=== PATIENT | male | born 1940 | race Caucasian/White ===

== ENCOUNTER 2017-09-13 09:00 | Observation (INO) | payer BC, OTHER ==
[2017-09-13 09:19] LABS: PLATELET COUNT 207 10^3/uL (150-400)
--- NOTE | 2017-09-13 09:21 | PDCONSULT ---
Tassel Maker Note: [facility] Note Demographics Consult Type: Acute Stroke First Name: Delta Last Name: Jason Date of : 1940 Age: 77 Gender: Male Time of initial page (): 09/13/2017 09:17 Time of return call (): 09/13/2017 09:17 Time Ready to Initiate Telemed Consult (): 09/13/2017 09:17 HPI Additional History (Free Text): was at home with sinus infection. He then became confused and perseverative. He also reports headache, which is better now. There is no focal weakness in the arms or legs. [facility]-- Past Medical History: Hypertension Exam Vitals: vital signs reviewed SBP: 173 DBP: 108 NIHSS Time (): 09/13/2017 09:17 LOC 1a: 0 = Alert; keenly responsive LOC 1b: 0 = Answers both questions correctly LOC Commands: 0 = Performs both tasks correctly Best Gaze: 0 = Normal Visual: 0 = No visual loss Facial Palsy: 0 = Normal symmetrical movements Motor Arm L: 0 = No drift; limb holds 90 (or 45) degrees for full 10 seconds Motor Arm R: 0 = No drift; limb holds 90 (or 45) degrees for full 10 seconds Motor Leg L: 0 = No drift; leg holds 30-degree position for full 5 seconds Motor Leg R: 0 = No drift; leg holds 30-degree position for full 5 seconds Limb Ataxia: 0 = Absent Sensory: 0 = Normal; no sensory loss Best Language: 0 = No aphasia; normal Dysarthria: 0 = Normal Extinction + Inattention: 0 = No abnormality NIHSS: [address]: no bleed Assessment Assessment: Altered Mental Status, possibly due to HTN Plan Lytic/Intervention: NOT IV or IA candidate tPA Exclusion (< 3hr window): Mild or improving symptoms Target Blood Pressure: SBP < 160, if CTA head and neck is negative Labs: Ammonia, Comprehensive metabolic panel, LFT, Lipid Panel, TSH, UA, UDS Imaging: CTA Head and Neck, MRI brain without Other: LDL goal less than 70, telemetry monitoring, I have discussed my recommendations with the referring provider Order Urgency: Routine on admission Disposition: admit Log[employer] Telemedicine: Interactive 2 way audio and visual telecommunication technology was utilized during this visit. Provider Location: [place]
--- NOTE | 2017-09-13 09:24 | CPEKG ---
Heart Rate: 68 RR Interval: 882 P-R Interval: 152 QRSD Interval: 92 QT Interval: 400 QTC Interval: 426 P Eldred: 3 QRS Eldred: -51 T Wave Eldred: 23 EKG Severity - ABNORMAL ECG - EKG Impression: SINUS RHYTHM EKG Impression: LEFT ANTERIOR FASCICULAR BLOCK Electronically Signed By: Criss Easton 13-Sep-2017 15:04:33
--- NOTE | 2017-09-13 09:26 | EDPHY ---
H & P Time Seen by Provider: 09/13/17 09:05 HPI/ROS: CHIEF COMPLAINT: Stroke alert, AMS, headache HISTORY OF PRESENT ILLNESS: This is a 77 y/o male with a history of hypertension arriving emergently via EMS as a Stroke Alert for acute declining mentation with headache this morning. Per EMS, the patient reported a head cold with a headache for some time and his contacted EMS this morning due to dizziness and headache. He has been using Sudafed and Afrin for sinus symptoms. While EMS was evaluating him on scene, he rapidly declined from alert and oriented to confused and perseverating with complete loss of short term memory. EMS did not note unilateral weakness, garbled speech, or facial asymmetry. His confusion has cleared somewhat en route. He was hypertensive around 180/110 for EMS. EMS spoke with the patient's brother via phone, who is a physician, and he reported intermittent mentation issues for several days and recommended a head CT. The patient denies headache or other complaints currently. No report of recent illness other than sinusitis or trauma. The patient is a poor historian. REVIEW OF SYSTEMS: Difficult to obtain as patient is a poor historian. 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 . Lives in [place]. Brother, Dr. Gomez, is cardiothoracic surgeon in [place] (cell:[phone]). Adult Physical: General Appearance: Alert, no acute distress. BP 179/99 Head: Normocephalic atraumatic. No sinus tenderness. Eyes: Pupils equal and round, no conjunctival injection, no discharge. ENT, Mouth: Mucous membranes are moist, no oropharyngeal erythema or edema. Neck: No lymphadenopathy, supple. No carotid bruits. Respiratory: Lungs are clear to auscultation; no wheezes, rales, or rhonchi. Cardiovascular: Regular rate and rhythm; no murmur, rub, or gallop. Gastrointestinal: Abdomen is soft and non tender, no masses or organomegaly. Skin: Warm and dry, no rashes, normal color. Back: Nontender to palpation over the thoracolumbar spine. Extremities: No lower extremity edema, no calf tenderness or swelling. Neurological: Alert and slightly confused. Moving all four extremities easily and equally. Rapid exam on arrival shows no focal neurologic signs--facial expressions are symmetric, no upper or lower extremity drift. He is able to tell me his name and states that he is in the hospital. Psychiatric: Normal affect. - Medical/Surgical History Hx Asthma: No Hx Chronic Respiratory Disease: No Hx Diabetes: No Hx Cardiac Disease: No Hx Renal Disease: No Hx Cirrhosis: No Hx Alcoholism: No Hx HIV/AIDS: No Hx Splenectomy or Spleen Trauma: No - Social History Smoking Status: Never smoked Constitutional: Initial Vital Signs Temperature (C) 36.8 C 09/13/17 09:13 Heart Rate 72 09/13/17 09:13 Respiratory Rate 16 09/13/17 09:13 Blood Pressure 179/99 H 09/13/17 09:13 O2 Sat (%) 100 09/13/17 09:13 O2 Delivery Mode Room Air Allergies/Adverse Reactions: No Known Allergies Allergy (Verified 09/13/17 10:39) Home Medications: Medication Instructions Recorded Valsartan [Diovan (*)] 160 mg PO DAILY 09/11/13 Aspirin [Aspirin 81mg (*)] 81 mg PO DAILY 09/13/17 Latanoprost 0.005% [Xalatan 0.005% 1 drops EACHEYE HS 09/13/17 (*)] Multivitamins [Multivitamin (*)] 1 each PO DAILY 09/13/17 Sildenafil Citrate [Viagra 50 MG 50 - 100 mg PO DAILY PRN 09/13/17 (*)] Timolol 0.5% [TIMOPTIC 0.5% (*)] 1 drops LEFTEYE DAILY 09/13/17 Medical Decision Making - Diagnostics EKG Interpretation: 12 lead EKG is interpreted in Trace master View by emergency department physician. Imaging: Discussed imaging studies w/ faculty i on call medical assistant Radiologist, I viewed and interpreted images myself ED Course/Re-evaluation: 0900: Met EMS upon arrival and took report. This is a 77 y/o male with a history of hypertension who presents as a Stroke Alert with acute altered mentation approximately 30 minutes prior to arrival around 08:30. He complained of a headache and dizziness to his prior to EMS arrival. EMS witnessed rapid decline in mentation from oriented to confused and perseverating while on scene. No focal deficit noted by EMS nor on arrival here. BGl normal. Plan for stroke work up including labs, CT, neurology consult. 0904: Patient sent to CT after rapid neuro exam in the hallway. The 12 lead EKG was interpreted by myself. Sinus mechanism rate 68 with LAFB. See hard copy and/or "tracemaster" electronic copy for interpretation. 0914: Radiologist report: microvascular disease, no hemorrhage, old lacunar infarct Chest x-ray: nothing acute. 0925: Dr. Whalen, Bruce Poole neurologist, evaluated patient via telemedicine. No interventions recommended at this time. 0950: Daughter reports patient has had mild cognitive symptoms for 2 years and they believe it is early dementia, but the patient has been unwilling to address it or speak about it with a physician. 10:00 a.m.. Additional history obtained from the patient's . She tells me that her came to her this morning concerned that he was going to faint, stating that he felt lightheaded. He was not sure whether it was his"head or heart". He has been recently treated for sinus infection and has been taking Sudafed and Afrin. He is compliant with his antihypertensive medication, per his . She offered to drive him to the hospital but he stated that he thought that he needed to come in an ambulance. This is an unusual request for him to make. 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 He works for a [employer] company. His work involves travel. She notes that he has had some memory problems over the last year or so and occasionally does not seem to remember things that he has been told. Over the last month she thinks it might have been somewhat worse, but nothing like what she has seen today. I re-examined him. I note that he has a slight tongue deviation to the right and is a slight some flattening of his right nasal labial fold. Otherwise I do not find any motor or sensory deficits and his cranial nerves are otherwise normal. However, he is obviously perseverating and repeatedly telling me that he remembers coming to a hospital. He cannot tell me what year it is. 1015: Spoke with Bruce Mir neurology. He continues to agree with me that this patient is not a candidate for tPA treatment. 1020: Spoke with hospitalist service. Dr. Zacarias accepts admission. 10mg IV Labetalol ordered for hypertension. Subsequent blood pressure 150/92. I suspect that this could be a hypertensive encephalopathy. I have not found evidence of any electrolyte abnormalities on review of his laboratory studies. There is nothing that makes me suspect infection. The possibility of this being an exacerbation of a chronic ongoing process also exists. Differential Diagnosis: Altered mental status including but not limited to hypoglycemia, infectious process, electrolyte abnormality, head injury and intoxicants. - Data Points Laboratory Results: Laboratory Results 09/13/17 09:05 09/13/17 09:05 Medications Given: Discontinued Medications Aspirin (Aspirin) 81 mg PO DAILY ANNA Stop: 03/13/18 08:59 Last Admin: 09/14/17 08:16 Dose: 81 mg Diazepam (Valium) 5 mg IVP ONCE ONE Stop: 09/13/17 14:16 Last Admin: 09/13/17 14:20 Dose: 5 mg Enoxaparin Sodium (Lovenox) 40 mg SC DAILY ANNA Stop: 03/13/18 08:59 Last Admin: 09/14/17 08:15 Dose: 40 mg Labetalol HCl (Trandate Injection) 10 mg IVP EDNOW ONE Stop: 09/13/17 10:24 Last Admin: 09/13/17 10:32 Dose: 10 mg Latanoprost (Xalatan 0.005%) 1 drops EACHEYE HS ANNA Stop: 03/12/18 20:59 Last Admin: 09/13/17 22:14 Dose: 1 drop Multivitamins (Tab-A-Cristin) 1 each PO DAILY ANNA Stop: 03/13/18 08:59 Last Admin: 09/14/17 08:16 Dose: 1 each Timolol Maleate (Timoptic 0.5%) 1 drops LEFTEYE DAILY ANNA Stop: 03/13/18 08:59 Last Admin: 09/14/17 08:17 Dose: 1 drop Valsartan (Diovan) 160 mg PO DAILY ANNA Stop: 03/13/18 08:59 Last Admin: 09/14/17 08:16 Dose: 160 mg Point of Care Test Results: Chemistry 09/13/17 09/13/17 09:08 09:06 POC Sodium 142 mEq/L mEq/L (135-145) POC Potassium 4.2 mEq/L mEq/L (3.3-5.0) POC Chloride 105 mEq/L mEq/L (97-110) POC BUN 17 mg/dL mg/dL (7-23) POC Creatinine 1.1 mg/dL mg/dL (0.7-1.3) POC Glucose 92 mg/dL mg/dL (70-100) POC Troponin I 0.00 ng/mL ng/mL (0.00-0.08) ISTAT H&H 09/13/17 09:08 POC Hgb 16.7 gm/dL gm/dL (13.7-17.5) POC Hct 49 % % (40-51) Departure - Departure Disposition: [facility] Inpatient Acute Clinical Impression: Encephalopathy Hypertension Qualifiers: Hypertension type: essential hypertension Qualified Code(s): I10 - Essential ( primary) hypertension Condition: Fair Report Scribed for: Crsis Easton Report Scribed by: Amanda Hairston Date of Report: 09/13/17 Time of Report: 09:09 Physician Review and Approval Statement: 09/14/17 13:46 Portions of this note were transcribed by the medical referral coordinator. I, Dr. Criss Easton, personally performed the history, physical exam, and medical decision- making; and confirmed the accuracy of the information in the transcribed note.
[2017-09-13 09:55] LABS: INR 0.99 (0.83-1.16); PROTIME(PATIENT) 13.3 SEC (12.0-15.0)
[2017-09-13] MEDS ORDERED: LABETALOL HCL 5 MG/ML 20 ML MDV IVP ONE (10:23)
[2017-09-13] MEDS ORDERED: hydrALAZINE 20 MG/ML VIAL IVP PRN (12:16)
[2017-09-13] MEDS ORDERED: IOPAMIDOL (ISOVUE 370) 100 ML BTL IV ONE (12:34)
--- NOTE | 2017-09-13 12:58 | GHP ---
[f rep st] HISTORY AND PHYSICAL DATE OF ADMISSION: 09/13/2017 CHIEF COMPLAINT: Confusion. HISTORY OF PRESENT ILLNESS: This is a 77-year-old male with history of hypertension, who was diagnos ed with sinus infection last week and finished a week-long course of an antibiotic last night. He carbone s also been taking Sudafed and Afrin. Last dose of Sudafed was last night. This morning at around 7:45 a.m., he went to his and told her that he felt very weak, dizzy and felt like he was going to faint. His subsequently called EMS who brought him to the emergency d [facility] for further evaluation. In the emergency department, the patient was oriented to person on ly. He really does not recall what happened this morning. He was seen by Neurology via Telehealth a nd diagnosed him with acute altered mental status which they thought was possibly due to hypertensive encephalopathy. PAST MEDICAL HISTORY: Hypertension, glaucoma. PAST SURGICAL HISTORY: Denies. MEDICATIONS: Aspirin, latanoprost, multivitamin, Viagra p.r.n., timolol eye drops, valsartan. ALLERGIES: No known drug allergies. SOCIAL HISTORY: He lives with his in [facility]. Drinks 1 beer per day. 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 FAMILY HISTORY: Significant for heart disease. REVIEW OF SYSTEMS: Comprehensive 10-point review of systems was done and is negative, except for as mentioned in the HPI. PHYSICAL EXAM: VITAL SIGNS: Blood pressure 151/92, but it was as high as 173/108 this morning, hear t rate 69, respiratory rate 16, O2 sat 100% on room air. Temperature afebrile. GENERAL: No acute d istress. HEAD: Normocephalic, atraumatic. EYES: PERRLA. Sclerae anicteric. MOUTH: Moist mucous membranes. NECK: Supple. No lymphadenopathy. CARDIOVASCULAR: S1, S2. No JVD. No lower extremi ty edema. PULMONARY: Lungs are clear. No wheezes, rales, or rhonchi. ABDOMEN: Soft, nontender, n ondistended. No guarding or rebound tenderness. Normoactive bowel sounds. EXTREMITIES: No clubbin g or cyanosis. NEURO: Cranial nerves 2-12 grossly intact. Face is symmetric. There is no pronator drift. He is oriented to person and place but not time. DIAGNOSTICS: WBC 4.68, hemoglobin 16.1, hematocrit 46.9, platelets 207. INR 0.99. Sodium 138, pota ssium 4.3, chloride 105, CO2 24, BUN 16, creatinine 0.9, glucose 87. Troponin was negative. Head CT reveals an old lacunar infarct, bilateral basal ganglia and thalamus. No definite acute infa rct. Moderate microvascular gliosis and moderate diffuse atrophy. EKG ,which I visualized and personally interpreted, shows sinus rhythm, rate 68 beats per minute, no acute ischemic changes. Chest x-ray shows no evidence for acute for acute cardiopulmonary abnormalities. ASSESSMENT AND PLAN: This is a 77-year-old male presenting with: 1. Acute encephalopathy, possibly due to hypertensive urgency versus possible transient ischemic att ack given evidence of lacunar infarcts on CT. Plan: The patient will be placed on observation where we will continue neuro checks. Neurology will be consulted. We will order MRI of the brain to furt her evaluate for infarct. 2. History of hypertension. Plan: Will continue home dose of valsartan and monitor blood pressure and treat hypertensive urgency as indicated with IV labetalol as currently ordered. /[id number]/MODL
[2017-09-13] MEDS ORDERED: DIAZEPAM 5 MG/ML 1 ML SYR IVP ONE (14:15)
--- NOTE | 2017-09-13 16:29 | ECHO ---
[email or web address] [address] [address] Main: [phone] Fax: Transthoracic Echocardiogram Name: LEANDRA MOSELEY MR#: [id number] Study Date: 09/13/2017 Study Time: 01:26 PM Date of : 1940 Age: 77 year(s) Height: 177.8 cm (70 in.) Weight: 73.48 kg (162 lb.) BSA: 1.91 m2 Gender: Male Examination: Echo Indication: EVAL FOR THROMBUS Image Quality: Adequate Contrast: Requested by: Joseph Zacarias BP: 119 mmHg/98 mmHg Heart Rate: Rhythm: Indication: EVAL FOR THROMBUS Procedure Staff Interface Control Officer: Giovana Corley RDCS Reading Physician: Mario Wallace MD Requesting Provider: Conclusions: Normal size left ventricle. EF is 62 %. An agitated saline study was performed and was negative for intracardiac shunting. The mitral valve is normal in appearance and function. Mild mitral valve regurgitation is present. The aortic valve is normal in appearance and function. No aortic valve stenosis is present. Right ventricular systolic pressure measures 26mmHg. No old studies for comparison. Measurements: Chambers Valvular Assessment AV/MV Valvular Assessment TV/PV Normal Normal Normal Name Value Range Name Value Range Name Value Range Ao Amanda (2D): 3.2 cm (1.4 cm-2.6 AV meanP mmHg ( - ) TR Vmax: 2.31 mm/s ( - ) cm) RADHA (VTI): 2.2 cm ( - ) TR PGmax: 21 mmHg ( - ) IVSd (2D): 0.9 cm (0.6 cm-1.1 MV E Vmax: 0.65 m/s ( - ) syst. PAP: 26 mmHg ( - ) cm) MV A Vmax: 0.86 m/s ( - ) PV Vmax: 1.29 m/s (0.6 m/s-0.9 LVDd (2D): 3.8 cm (4.2 cm-5.9 MV E/A: 0.76 ( - ) m/s) cm) MV PHT: 0.085 s ( - ) PV PGmax: 7 mmHg ( - ) LVDs (2D): 2.7 cm (2.1 cm-4 cm) MVA (PHT): 2.6 s ( - ) LVPWd (2D): 1.0 cm (0.6 cm-1 cm) LVOTd 1.8 cm 1.8 cm mm LVEF (MOD4): 62 % (>=55 %) RVDd(2D): 3.2 cm (1.9 cm-3.8 cmmm) Continued Measurements: Patient: LEANDRA MOSELEY Study Date: 09/13/2017 Page 1 of 2 01:26 PM Chambers Valvular Assessment AV/MV Valvular Assessment TV/PV Name Value Name Value Name Value LADs: 3.1 cm MV DecTime: 271 m/s CVP (est.): 5 mmHg LADs Lon.7 cm MV E' Septal: 0.06 m/s LA Area: 15.6 cm2 MV E/E' Septal: 11.10 RA Area: 13.7 cm2 MV E/E' Lateral: 9.90 Additional Vessels Name Value Ao Ascendin.7 cm Findings: Left Ventricle: Normal size left ventricle. No LV hypertrophy. Normal global systolic LV function. EF is 62 %. No regional wall motion abnormality. Diastolic dysfunction is present. . Right Ventricle: Normal size right ventricle. Normal RV function. Left Atrium: The left atrium is normal in size. An agitated saline study was performed and was negative for intracardiac shunting. Right Atrium: The right atrium is normal in size. Mitral Valve: The mitral valve is normal in appearance and function. Mild mitral valve regurgitation is present. No mitral stenosis is present. Aortic Valve: The aortic valve is normal in appearance and function. There is no significant aortic valve regurgitation. No aortic valve stenosis is present. Tricuspid Valve: The tricuspid valve is normal in appearance and function. There is no significant tricuspid valve regurgitation. The pulmonary artery pressure is normal. Right ventricular systolic pressure measures 26mmHg. Pulmonic Valve: The pulmonic valve is normal in appearance and function. There is no pulmonic regurgitation seen. Aorta: The aorta is normal. Normal size aortic root measuring 3.2 cm. Normal size ascending aorta measuring 2.7 cm. IVC: Subcostal not well seen, IVC not seen. Pericardium: No pericardial effusion. No pleural effusion. (No Signature Object) Patient: LEANDRA MOSELEY Study Date: 09/13/2017 Page 2 of 2 01:26 PM [id number]
[2017-09-13] MEDS ORDERED: LATANOPROST 0.005% 2.5 ML OPHT DROPS EACHEYE SCH (21:00)
[2017-09-14] MEDS ORDERED: ENOXAPARIN 40 MG/0.4 ML SYR SC SCH (09:00)
[2017-09-14] MEDS ORDERED: VALSARTAN 160 MG TAB PO SCH (09:00)
[2017-09-14] MEDS ORDERED: MULTIVITAMINS 1 EACH TAB PO SCH (09:00)
[2017-09-14] MEDS ORDERED: ASPIRIN 81 MG CHEWABLE TAB PO SCH (09:00)
[2017-09-14] MEDS ORDERED: TIMOLOL 0.5% 15 ML OPHT.BTL LEFTEYE SCH (09:00)
--- NOTE | 2017-09-14 09:47 | NEUROPROG ---
Assessment: [id number] - Neurology Consult: - CC: Memory Loss - HPI: Pt reported a sinus infection one week prior to presentation on 09/13/17. He reported he took abx and sudafed/afrin for the sinus infection. On the morning of 09/13/17 his family noted he had problems forming short term memory and seemed confused. The problems with short term memory persisted for 24 hours then resolved. He has no memory of those events but now feels back to normal with normal memory. He did have elevated blood pressure up to 179/99. Head CT showed no acute changes and a head/neck CTA showed no acute changes. He was admitted for further evaluation. H1AC 5.5 and LDL 87. TTE and brain MRI generally unremarkable (results below). I initially saw the patient on . His neurologic exam was normal. I felt he had transient global amnesia, a self-limited process, so no further treatment recommendations were needed. I told him to f/u with me in 1-4 weeks after hospital discharge. - PMHx: HTN, glaucoma - Home Meds: ASA, latanoprost, viagra prn, timolol, valsartan - SHx: no tobacco FHx: heart disease - ROS: Pt denied acute fever, total vision loss, active severe chest pain, respiratory failure, total body severe rash, total bowel/bladder incontinence, psychosis, active seizures, or active bleeding - O: VS reviewed General: Alert Eyes: Fundoscopic exam not able to visualize optic disks CV: Heart RRR, no murmur, no carotid bruit Lungs: Clear to auscultation bilaterally, no rhonchi or rales Neuro: - Mental: . Oriented x person/place/date . concentration appears normal . speech fluency/comprehension normal . memory appears normal . fund of knowledge appear intact - Cranial Nerves: . II: PERRL, VFFTC . III/IV/: EOMI, no nystagmus, normal smooth pursuits, no Ptosis . V: facial sensation intact to LT . VII: face symmetric to eye closure and smile . VIII: hearing intact to conversation . IX/X: uvula raises symmetrically . XI: SCM 5/5 B/L strength . XII: tongue protrudes midline w/nl strength - Motor: . Tone: normal tone in all 4 extremity . Strength: no pronator drift, strength 5/5 throughout (B/L delt, bic, tri, hand midwife practitioner, hf/he, df/pf) - Reflexes: B/L bic/BR/patella 2/4 - Sensory: all 4 extremity intact to light touch - Coord: [id number] wnl, MARTIN wnl, [id number] wnl - Gait: deferred - Labs: 09/13/17- CBC wnl, Coags wnl, Chem wnl, H1AC 5.5 09/14/17- LDL 87 - Rads: 09/13/17- Head CT w/o con: no acute changes (I personally visualized the images on 09/14/17) 09/13/17- CTA head/neck: no acute changes, mod stenosis of P1 segment of R COMPENSATION CONSULTING MANAGER 09/13/17- TTE: EF 62%, no thrombus reported 09/13/17- Brain MRI w/o con: mod atrophy, no acute changes, mod CMVD, cervical spondylosis - Assessment: 1. Transient Global Amnesia on 09/13/17: His neurologic exam was normal. CTA head/neck, TTE, and brain MRI w/o con all generally unremarkable. This is a self limited process not requiring any treatment. - Plan: - No further neurologic w/u needed - F/U with Dr. Eduin Rodriguez in neurology clinic 1-4 weeks after discharge Objective: Vital Signs Temp Pulse Resp BP Pulse Ox 36.8 C 72 18 133/82 H 94 09/14/17 07:46 09/14/17 07:46 09/14/17 07:46 09/14/17 07:46 09/14/17 07:46 09/13/17 09/14/17 09/15/17 05:59 05:59 05:59 Intake Total 850 Balance 850 PT 13.3 SEC (12.0-15.0) 09/13/17 09:05 INR 0.99 (0.83-1.16) 09/13/17 09:05 Allergies/Adverse Reactions: No Known Allergies Allergy (Verified 09/13/17 10:39)
[2017-09-14 12:13] VITALS: BP 118/73
--- NOTE | 2017-09-14 13:24 | GDS ---
[f rep st] DISCHARGE SUMMARY DISCHARGE DIAGNOSES: 1. Resolved acute encephalopathy suspected due to transient global amnesia. 2. History of hypertension. CONSULTANTS: Eduin Rodriguez DO. HOSPITAL COURSE AND STAY BY PROBLEM: Acute encephalopathy: The patient presented to the hospital wi th confusion and amnesia. Initially his blood pressure was quite high. Subsequently, a brain MRI wa s done on 09/13/2017, that was negative for acute stroke or etiology for his symptoms. There was mod erate cerebellar atrophy. 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 Echoc ardiogram was done which showed ejection fraction of 62% with no left ventricular hypertrophy. On day of discharge, the patient appears to be back to his baseline. He is no longer confused. PHYSICAL EXAM: VITAL SIGNS: On the day of discharge, blood pressure 118/73, pulse of 86, respirator y rate 18, O2 saturation 95% on room air. Temperature afebrile. GENERAL: In no acute distress. NE URO: Cranial nerves 2-12 grossly intact. No focal motor or sensory deficits. DIAGNOSTICS DONE THIS HOSPITAL STAY: CTA of the head and neck done 09/13/2017, refer to report. Bra in MRI done 09/13/2017, refer to report. Echocardiogram done 09/13/2017, refer to report. LDL was 8 7, total cholesterol 158, HDL 52. DISCHARGE INSTRUCTIONS: The patient will be discharged from the hospital where he should follow up otis Rodriguez of neurology in the next 1-4 weeks. They were instructed to [facility] if he develops any recurrent neurologic deficits. /[id number]/MODL
--- NOTE | 2017-09-14 13:32 | ASDISCHSUM ---
Discharge Information Plan Status:Home with No Needs Medically Cleared to Leave:09/14/2017 Discharge Date:09/14/2017 CM D/C Disposition:Home, Routine, Self-Care ADT D/C Disposition:Home, Routine, Self-Care Projected Discharge Date:09/14/2017 Transportation at D/C: Discharge Delay Reason: Follow-Up Date:09/14/2017 Discharge Slot: Final Diagnosis: Placement Information Patient Contact Information Contact Name:GETACHEW Relationship: Address:[address] City:[place] Alternate Phone: [facility]/Zip Code:[place] [address] Email: Financial Information Financial Class:HMO and PPO Plans Primary Plan Desc: OUT OF STATE PPO Primary Plan Number:[id number] Secondary Plan Desc: Secondary Plan Number: Assessment Information LACE LACE Length of stay for Answers: 1 day current admission Acuity / Level of Answers: No Care: Did the patient have an inpatient admission? Comorbidities - select Answers: Other Notes: HTN, acute altered ment al all that apply status, glaucoma # of Emergency department Answers: 1-2 visits in the last 6 months Score: 3 Date Signed: 09/14/2017 01:31 PM Electronically Signed By:Maren Duff RN Intervention Information
== END 2017-09-14 13:32 | disposition home or self-care (01) ==
LOC: EDUNIT# → INTOOBSV 10:22 → F2W 12:01
PROVIDERS: ADMIT Family Medicine; ATTEND Family Medicine
DX: G93.40 Encephalopathy, unspecified (principal); I10 Essential (primary) hypertension
CPT/HCPCS: 70450; 70496; 70498; 70551; 71045; 92523; 92610; 93005; 93306; 97161; G0378; G8996; G8997; G8998; G9168; G9169; 82435-PO; 82565-PO; 82947-PO; 84132-PO; 84295-PO; 84484-PO; 84520-PO; 85014-PO; 96374; J1650; J3360; Q9967

== ENCOUNTER → 2018-01-31 | Outpatient (CLI) | payer BC | LOC: BMCIMAGING 10:15 | PROVIDERS: ATTEND Internal Medicine | DX: R60.0 Localized edema (principal); M71.22 Synovial cyst of popliteal space [Baker], left knee ==

== ENCOUNTER → 2018-02-02 | Outpatient (CLI) | payer BC, OTHER ==
[~2018-02-02] MED LIST: IOPAMIDOL (ISOVUE-300) 100 ML BTL ONE
== END ==
LOC: FIMAGING 12:46
PROVIDERS: ATTEND Internal Medicine
DX: I72.3 Aneurysm of iliac artery (principal)
CPT/HCPCS: 82565-PO; Q9967

== ENCOUNTER → 2018-03-04 | Outpatient (CLI) | payer BC | LOC: BMCIMAGING 11:31 | PROVIDERS: ATTEND Internal Medicine | DX: R42 Dizziness and giddiness (principal); R63.4 Abnormal weight loss; J44.9 Chronic obstructive pulmonary disease, unspecified; J45.909 Unspecified asthma, uncomplicated ==

== ENCOUNTER 2018-03-11 17:33 | Inpatient (IN) | payer BC, OTHER ==
--- NOTE | 2018-03-11 18:07 | EDPHY ---
H & P Time Seen by Provider: 03/11/18 17:45 HPI/ROS: CHIEF COMPLAINT: Dizziness HISTORY OF PRESENT ILLNESS: The patient is a 78-year-old male with a history of hypertension and transient global amnesia the here chief complaint of on and off dizziness for the last 5-6 weeks and now with worsening symptoms for the day. 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 The symptoms resolved and then about 6 weeks ago he started with dizziness that he describes as feeling like he is going to pass out and spinning within his head. He denies any associated chest pain or shortness of breath and he has not had any syncopal events. Does report that today for the 1st time he fell trouble walking but was able to ambulate with increased concentration. Additionally notes intermittent double vision today along with blurry vision. He has been seen by his primary care doctor for this over the last month he has been referred to ENT. He has not had an MRI of his brain since his transient global amnesia. REVIEW OF SYSTEMS: Constitutional: No fever, no chills. Eyes: No discharge. ENT: No sore throat. Cardiovascular: No chest pain, no palpitations. Respiratory: No cough, no shortness of breath. Gastrointestinal: No abdominal pain, no vomiting. Genitourinary: No hematuria. Musculoskeletal: No back pain. Skin: No rashes. Neurological: No headache. Smoking Status: Never smoked Physical Exam: General Appearance: Alert and no distress. ENT: normal dentition. No tonsillar exudate or swelling. Eyes: Pupils equal and round no injection. Respiratory: Chest is nontender, lungs are clear to auscultation. Cardiac: regular rate and rhythm. No lower extremity edema Gastrointestinal: Abdomen is soft and nontender, no masses, bowel sounds normal. Musculoskeletal: Neck is supple and nontender. Extremities have full range of motion and are nontender without deformity Skin: No rashes or lesions. Neuro: Cranial nerves grossly intact. No nystagmus. Normal [id number] testing. No ulnar drift. Equal grasp bilateral hands. Ambulatory. Constitutional: Initial Vital Signs Heart Rate 85 03/11/18 17:46 Respiratory Rate 16 03/11/18 17:46 Blood Pressure 153/94 H 03/11/18 17:46 O2 Sat (%) 98 03/11/18 17:46 O2 Delivery Mode Nasal Cannula O2 (L/minute) 2 Allergies/Adverse Reactions: No Known Allergies Allergy (Verified 09/13/17 10:39) Home Medications: Medication Instructions Recorded Aspirin [Aspirin 81mg (*)] 81 mg PO DAILY 09/13/17 Latanoprost 0.005% [Xalatan 0.005% 1 drops LEFTEYE HS 09/13/17 (*)] Multivitamins [Multivitamin (*)] 1 each PO DAILY 09/13/17 Sildenafil Citrate [Viagra 50 MG 50 - 100 mg PO DAILY PRN 09/13/17 (*)] Timolol 0.5% [TIMOPTIC 0.5% (*)] 1 drops LEFTEYE DAILY 09/13/17 Lisinopril/Hydrochlorothiazide 1 each PO DAILY 03/11/18 [Zestoretic 20-25 mg Tablet] Medical Decision Making - Diagnostics Imaging Results: Imaging Impressions Brain MRI 03/11/18 18:01 Impression: 1. Two left occipital lobe peripheral enhancing masses up to 3.3 x 2.4 cm, with surrounding edema, most likely representing metastasis. Less likely differential includes multifocal glioblastoma multiforme or cerebral abscesses. 2. No acute hemorrhage, definite acute infarct, hydrocephalus, or mass effect. 3. Mild cerebral atrophy. 4. A few nonspecific hyperintense T2/FLAIR signal abnormalities in the white matter of bilateral cerebral hemispheres. Differential diagnosis includes mild microvascular ischemic gliosis Findings and recommendations discussed with Emergency Department physician, Eduin Rice PA-C, at 2100 hours, on March 11, 2018. Final report concurs with initial preliminary interpretation. Head CTA 03/11/18 18:02 Impression: 1. No evidence of carotid atherosclerotic disease, flow-limiting stenosis, occlusion, or dissection. 2. Patent vertebrobasilar system. 3. Severe cervical spondylosis resulting in mild to moderate central canal stenosis from C4-C5 through C6-C7. Measurement of carotid stenosis is based on the residual internal carotid diameter with [place] Symptomatic Carotid Endarterectomy Trial (NASCET) based stenosis levels. CT Angiogram of the Brain Clinical Indications: Dizziness, vertigo, double vision. Technique: CT angiogram of the brain and neck was performed with the uneventful intravenous administration of 85 mL Isovue-370 contrast. Multiplanar reconstructions including 3D reconstructions performed and evaluated on [employer] workstation in order to better evaluate the [place] vessels. Images were manipulated by the radiologist at the computer workstation. Dose reduction techniques were utilized. Findings: Major vessels of the [place] are adequately displayed, demonstrating no evidence of aneurysm, vascular malformation, or occlusion. Moderate narrowing over the midaspect of the right posterior cerebral artery, without complete occlusion. Cerebrovascular atherosclerotic ulcerations of bilateral cavernous and supraclinoid internal carotid arteries. No complete occlusion or intraluminal thrombi. Superior sagittal sinus, transverse sinuses , and major veins demonstrate no evidence of intraluminal thrombi. Impression: 1. Cerebrovascular atherosclerosis. 2. No complete occlusion or intraluminal thrombi. 3. Moderate stenosis of the right posterior cerebral artery, without complete occlusion. Findings and recommendations discussed with Emergency Department physician, Eduin Rice PA-C, at 2115 hours, on March 11, 2018. Final report concurs with initial preliminary interpretation. Neck CTA 03/11/18 18:02 Impression: 1. No evidence of carotid atherosclerotic disease, flow-limiting stenosis, occlusion, or dissection. 2. Patent vertebrobasilar system. 3. Severe cervical spondylosis resulting in mild to moderate central canal stenosis from C4-C5 through C6-C7. Measurement of carotid stenosis is based on the residual internal carotid diameter with [place] Symptomatic Carotid Endarterectomy Trial (NASCET) based stenosis levels. CT Angiogram of the Brain Clinical Indications: Dizziness, vertigo, double vision. Technique: CT angiogram of the brain and neck was performed with the uneventful intravenous administration of 85 mL Isovue-370 contrast. Multiplanar reconstructions including 3D reconstructions performed and evaluated on st[employer]da workstation in order to better evaluate the [place] vessels. Images were manipulated by the radiologist at the computer workstation. Dose reduction techniques were utilized. Findings: Major vessels of the [place] are adequately displayed, demonstrating no evidence of aneurysm, vascular malformation, or occlusion. Moderate narrowing over the midaspect of the right posterior cerebral artery, without complete occlusion. Cerebrovascular atherosclerotic ulcerations of bilateral cavernous and supraclinoid internal carotid arteries. No complete occlusion or intraluminal thrombi. Superior sagittal sinus, transverse sinuses , and major veins demonstrate no evidence of intraluminal thrombi. Impression: 1. Cerebrovascular atherosclerosis. 2. No complete occlusion or intraluminal thrombi. 3. Moderate stenosis of the right posterior cerebral artery, without complete occlusion. Findings and recommendations discussed with Emergency Department physician, Eduin Rice PA-C, at 2115 hours, on March 11, 2018. Final report concurs with initial preliminary interpretation. ED Course/Re-evaluation: 78-year-old male here here with dizziness worsening for the last 4-5 weeks found to have to occipital brain masses. CT CTA of the head showed no bleed or stenosis. EKG revealed normal sinus rhythm with no signs of ischemia. Troponin was negative. Labs revealed no electrolyte disturbance or hyperglycemia. The patient was admitted to Medicine. He was given IV steroids in the emergency room. Discussed case with Neurosurgery who recommended CT chest abdomen pelvis along with Q 6 IV Decadron. - Data Points Laboratory Results: Laboratory Results 03/11/18 18:30 03/11/18 18:30 03/11/18 03/11/18 03/11/18 20:59 18:30 18:30 WBC 5.99 10^3/uL 10^3/uL (3.80-9.50) RBC 4.70 10^6/uL 10^6/uL (4.40-6.38) Hgb 14.8 g/dL g/dL (13.7-17.5) Hct 43.2 % % (40.0-51.0) MCV 91.9 fL fL (81.5-99.8) MCH 31.5 pg pg (27.9-34.1) MCHC 34.3 g/dL g/dL (32.4-36.7) RDW 12.4 % % (11.5-15.2) Plt Count 189 10^3/uL 10^3/uL (150-400) MPV 9.1 fL fL (8.7-11.7) Neut % (Auto) 63.6 % % (39.3-74.2) Lymph % (Auto) 24.5 % % (15.0-45.0) [place] % (Auto) 9.3 % % (4.5-13.0) Eos % (Auto) 2.0 % % (0.6-7.6) Baso % (Auto) 0.3 % % (0.3-1.7) Nucleat RBC Rel Count 0.0 % % (0.0-0.2) Absolute Neuts (auto) 3.80 10^3/uL 10^3/uL (1.70-6.50) Absolute Lymphs (auto) 1.47 10^3/uL 10^3/uL (1.00-3.00) Absolute Monos (auto) 0.56 10^3/uL 10^3/uL (0.30-0.80) Absolute Eos (auto) 0.12 10^3/uL 10^3/uL (0.03-0.40) Absolute Basos (auto) 0.02 10^3/uL 10^3/uL (0.02-0.10) Absolute Nucleated RBC 0.00 10^3/uL 10^3/uL (0-0.01) Immature Gran % 0.3 % % (0.0-1.1) Immature Gran # 0.02 10^3/uL 10^3/uL (0.00-0.10) Sodium 135 mEq/L mEq/L (135-145) Potassium 4.4 mEq/L mEq/L (3.5-5.2) Chloride 102 mEq/L mEq/L (97-110) Carbon Dioxide 25 mEq/l mEq/l (22-31) Anion Gap 8 mEq/L mEq/L (6-14) BUN 35 mg/dL H mg/dL (7-23) Creatinine 1.0 mg/dL mg/dL (0.7-1.3) Estimated GFR > 60 Glucose 87 mg/dL mg/dL (70-100) Calcium 9.5 mg/dL mg/dL (8.5-10.4) POC Troponin I 0.01 ng/mL ng/mL (0.00-0.08) Medications Given: Discontinued Medications Dexamethasone (Decadron Injection) 4 mg IVP EDNOW ONE Stop: 03/11/18 21:48 Last Admin: 03/11/18 22:04 Dose: 4 mg Meclizine HCl (Meclizine Hcl) 25 mg PO ONCE ONE Stop: 03/11/18 18:53 Last Admin: 03/11/18 19:13 Dose: 25 mg Point of Care Test Results: Chemistry 03/11/18 20:59 POC Troponin I 0.01 ng/mL ng/mL (0.00-0.08)
--- NOTE | 2018-03-11 18:31 | CPEKG ---
Test Reason : OPEN Blood Pressure : / mmHG Vent. Rate : 075 BPM Atrial Rate : 075 BPM P-R Int : 142 ms QRS Dur : 098 ms QT Int : 406 ms P-R-T Axes : -24 -44 034 degrees QTc Int : 454 ms Sinus rhythm Left axis deviation Low voltage, extremity leads Confirmed by Nomi Javed ([id number]) on 03/11/2018 6:30:52 PM Referred By: Confirmed By:Nomi Javed
[2018-03-11 18:52] LABS: PLATELET COUNT 189 10^3/uL (150-400)
[2018-03-11] MEDS ORDERED: MECLIZINE HCL 25 MG TAB PO ONE (18:52)
[2018-03-11] MEDS ORDERED: IOPAMIDOL (ISOVUE 370) 100 ML BTL IV ONE (19:06)
[2018-03-11] MEDS ORDERED: GADOBUTROL 10 ML VIAL IVP ONE (19:45)
[2018-03-11] MEDS ORDERED: DEXAMETHASONE 4 MG/ML VIAL IVP ONE (21:47)
[2018-03-11] MEDS ORDERED: LORazepam 0.5 MG TAB PO PRN (22:55)
[2018-03-11] MEDS ORDERED: ONDANSETRON 4 MG/2 ML VIAL IVP PRN (22:55)
[2018-03-11] MEDS ORDERED: ONDANSETRON DISINTEGRATING 4 MG TAB PO PRN (22:55)
[2018-03-11] MEDS ORDERED: MELATONIN 3 MG TAB PO PRN (23:04)
[2018-03-11] MEDS ORDERED: diphenhydrAMINE 12.5 MG/5 ML UDCUP PO PRN (23:05)
--- NOTE | 2018-03-11 23:21 | PDGENHP ---
History and Physical - Chief Complaint dizziness, headache - History of Present Illness Source - patient provides history and appears reliable. Patient's and son are at bedside and supplement details. EMR reviewed and case discussed with ED provider. HPI-this is a very pleasant 78-year-old gentleman with past medical history significant for HTN, glaucoma who presents emergency department today with complaints of progressively worsening dizziness and presyncope at home today. Patient describes his dizziness as lightheadedness without any vertiginous type symptoms. Patient has not had any for syncopal episodes but has come close several times. Patient was admitted 08/2017 for an episode of transient global amnesia. At that time CT imaging and MRI were negative for any acute findings. Patient was evaluated by Neurology and had outpatient follow-up. Since that time patient reports that he has continued to have episodes of lightheadedness and headaches. He has had declining appetite over the last several months. notes that they have drastically changed their diet in addition however his appetite is notably less than previous. He is also less active where he used to exercise approximately 1 hr per day. Patient's also notes that patient has had some progressively worsening short-term memory. Patient denies any numbness or tingling. Patient denies any fevers, chills, sweats. Weight loss of 10 lb with decreased appetite and dietary changes as noted above. No nausea, vomiting, diarrhea. No cough or shortness of breath. Patient has been following up closely with his primary care provider. Blood pressures have not been noted to be elevated in his home medications have been altered on he was previously on losartan in this was changed lisinopril HCTZ. He has had not had any reported significant elevations in blood pressure. History Information - Allergies/Home Medication List Allergies/Adverse Reactions: No Known Allergies Allergy (Verified 09/13/17 10:39) Home Medications: Aspirin [Aspirin 81mg (*)] 81 mg PO DAILY 09/13/17 [Last Taken 03/11/18] Latanoprost 0.005% [Xalatan 0.005% (*)] 1 drops LEFTEYE HS 09/13/17 [Last Taken 03/10/18] Multivitamins [Multivitamin (*)] 1 each PO DAILY 09/13/17 [Last Taken 03/11/18] Sildenafil Citrate [Viagra 50 MG (*)] 50 - 100 mg PO DAILY PRN 09/13/17 [Last Taken Unknown] Timolol 0.5% [TIMOPTIC 0.5% (*)] 1 drops LEFTEYE DAILY 09/13/17 [Last Taken ] Lisinopril/Hydrochlorothiazide [Zestoretic 20-25 mg Tablet] 1 each PO DAILY [Last Taken 03/11/18] I have personally reviewed and updated: family history, medical history, social history, surgical history - Past Medical History Additional medical history: HTN, glaucoma, hard of hearing with use of hearing aids. 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 Left cataract extraction with lens placement. - Family History Additional family history: Mother and father-lived to 90s. Both with CAD at advanced age. Father with history of dementia. No known cancers in the family. - Social History Smoking Status: Never smoked Alcohol Use: Occasionally (Patient drinks 1 beer daily occasionally 2.) Drug Use: None Additional social history: Patient is and lives with his . Son lives in [place] and supportive. Patient without need for assistive devices. Cor-full. Review of Systems Review of Systems: ROS: 10pt was reviewed & negative except for what was stated in HPI & below Constitutional: Reports: weight loss (10 lb with significant dietary changes but also noted decreased appetite since August 2017. ). Denies: chills, fever, malaise EENMT: Reports: no symptoms Cardiac: Reports: lightheadedness. Denies: edema, palpitations Respiratory: Reports: no symptoms Gastrointestinal: Reports: no symptoms Genitourinary: Reports: no symptoms Muscolosketal: Reports: no symptoms Skin: Reports: no symptoms Neurological: Denies: numbness, tingling, tremors, weakness Hematologic/Lymphatic: Reports: no symptoms Physical Exam Physical Exam: Selected Entries 03/11/18 17:46 Blood Pressure Automatic Method Heart Rate 85 Respiratory 16 Rate O2 Sat (%) 98 Blood Pressure 153/94 H Mean Arterial 113 H Pressure (MAP) O2 Delivery Room Air Mode Temperature Oral Source Temp Pulse Resp BP Pulse Ox 77 20 147/87 H 100 03/11/18 22:16 03/11/18 22:16 03/11/18 22:16 03/11/18 22:16 O2 (L/minute) 2 Constitutional: no apparent distress Eyes: PERRL (Lens reflex left eye.), anicteric sclera, EOMI, No scleral injection Ears, Nose, Mouth, Throat: moist mucous membranes, hard of hearing, No poor dentition Cardiovascular: regular rate and rhythym, no murmur, rub, or gallop, pulses symmetric bilaterally, No edema Peripheral Pulses: 2+: dorsalis-pedis (R), dorsalis-pedis (L) Respiratory: no respiratory distress, no rales or rhonchi, clear to auscultation , No expiratory wheeze, No inspiratory crackles, No respiratory distress Gastrointestinal: normoactive bowel sounds, soft, non-tender abdomen, no palpable masses, No distension Genitourinary: no bladder tenderness, No de dios in urethra Skin: warm, normal color, no rashes or abrasions Musculoskeletal: full muscle strength, no muscle tenderness, normal joint ROM, No generalized weakness Neurologic: AAOx3, sensation intact bilaterally, CN II-XII Intact, other ( Minimal intention tremor bilateral ), No facial droop Lab Data & Imaging Review 03/11/18 18:30 03/11/18 18:30 WBC 5.99 10^3/uL (3.80-9.50) 03/11/18 18:30 RBC 4.70 10^6/uL (4.40-6.38) 03/11/18 18:30 Hgb 14.8 g/dL (13.7-17.5) 03/11/18 18:30 Hct 43.2 % (40.0-51.0) 03/11/18 18:30 MCV 91.9 fL (81.5-99.8) 03/11/18 18:30 MCH 31.5 pg (27.9-34.1) 03/11/18 18:30 MCHC 34.3 g/dL (32.4-36.7) 03/11/18 18:30 RDW 12.4 % (11.5-15.2) 03/11/18 18:30 Plt Count 189 10^3/uL (150-400) 03/11/18 18:30 MPV 9.1 fL (8.7-11.7) 03/11/18 18:30 Neut % (Auto) 63.6 % (39.3-74.2) 03/11/18 18:30 Lymph % (Auto) 24.5 % (15.0-45.0) 03/11/18 18:30 Miner % (Auto) 9.3 % (4.5-13.0) 03/11/18 18:30 Eos % (Auto) 2.0 % (0.6-7.6) 03/11/18 18:30 Baso % (Auto) 0.3 % (0.3-1.7) 03/11/18 18:30 Nucleat RBC Rel Count 0.0 % (0.0-0.2) 03/11/18 18:30 Absolute Neuts (auto) 3.80 10^3/uL (1.70-6.50) 03/11/18 18:30 Absolute Lymphs (auto) 1.47 10^3/uL (1.00-3.00) 03/11/18 18:30 Absolute Monos (auto) 0.56 10^3/uL (0.30-0.80) 03/11/18 18:30 Absolute Eos (auto) 0.12 10^3/uL (0.03-0.40) 03/11/18 18:30 Absolute Basos (auto) 0.02 10^3/uL (0.02-0.10) 03/11/18 18:30 Absolute Nucleated RBC 0.00 10^3/uL (0-0.01) 03/11/18 18:30 Immature Gran % 0.3 % (0.0-1.1) 03/11/18 18:30 Immature Gran # 0.02 10^3/uL (0.00-0.10) 03/11/18 18:30 Sodium 135 mEq/L (135-145) 03/11/18 18:30 Potassium 4.4 mEq/L (3.5-5.2) 03/11/18 18:30 Chloride 102 mEq/L (97-110) 03/11/18 18:30 Carbon Dioxide 25 mEq/l (22-31) 03/11/18 18:30 Anion Gap 8 mEq/L (6-14) 03/11/18 18:30 BUN 35 mg/dL (7-23) H 03/11/18 18:30 Creatinine 1.0 mg/dL (0.7-1.3) 03/11/18 18:30 Estimated GFR > 60 03/11/18 18:30 Glucose 87 mg/dL (70-100) 03/11/18 18:30 Calcium 9.5 mg/dL (8.5-10.4) 03/11/18 18:30 POC Troponin I 0.01 ng/mL (0.00-0.08) 03/11/18 20:59 Imaging Review: MRI of the Brain (Without and With Contrast) at 1928 hours Clinical Indications: Vertigo, blurry vision, occasional double vision. Technique: T1-weighted images were acquired axially and sagittally from the foramen magnum to the vertex. Axial fast inversion-recovery, fast T2-weighted, SWI, and diffusion- weighted axial images were obtained, without contrast. Postcontrast axial, sagittal, and coronal images, with the uneventful intravenous administration of 8 mL Gadavist contrast. Findings: The ventricles, cisterns, and sulci are widened consistent with atrophy. No hydrocephalus, midline shift, herniation, or epidural/subdural hematomas. In the left occipital lobe, there is vasogenic edema surrounding two peripheral enhancing masses, with the most posterior mass measuring 3.3 x 2.4 cm and slightly anteromedial mass measuring 2.7 x 1.6 cm. No definite additional enhancing lesions. Diffusion series demonstrates no acute infarct. Cerebellar tonsils are in normal position. Pituitary gland is normal in size. Normal signal flow void in the superior sagittal sinus, basilar artery, and bilateral internal carotid arteries indicating patency. Several nonspecific bilateral white matter hyperintense T2/FLAIR signal abnormalities, without mass effect or enhancement. Degenerative upper cervical spine resulting in mild to moderate central canal stenosis at C3-C4 and C4-C5. Impression: 1. Two left occipital lobe peripheral enhancing masses up to 3.3 x 2.4 cm, with surrounding edema, most likely representing metastasis. Less likely differential includes multifocal glioblastoma multiforme or cerebral abscesses. 2. No acute hemorrhage, definite acute infarct, hydrocephalus, or mass effect. 3. Mild cerebral atrophy. 4. A few nonspecific hyperintense T2/FLAIR signal abnormalities in the white matter of bilateral cerebral hemispheres. Differential diagnosis includes mild microvascular ischemic gliosis Findings and recommendations discussed with Emergency Department physician, Eduin Rice PA-C , at 2100 hours, on March 11, 2018. Final report concurs with initial preliminary interpretation. Dictated By: Avila Miranda CT Angiogram Neck, With Contrast Enhancement and Multiplanar Reconstructions, at 2043 hours History: Dizziness, vertigo, double vision. Technique: 1.25-mm axial multidetector helical CT imaging was performed through the brain and neck while 85 mL Isovue-370 were injected intravenously, without complication. The images were then transferred to an independent workstation where multiplanar and three- dimensional reconstructions were performed by the interpreting physician and reviewed at multiple windows. Dose reduction techniques were utilized. CTA Findings: Aortic arch and origin of the great vessels appear patent, without evidence of flow- limiting stenosis, occlusion, or dissection. Mild atherosclerotic plaque proximal right subclavian artery. Bilateral common carotid arteries are patent, without dissection, flow- limiting stenosis, or occlusion. Carotid bulbs demonstrate no evidence of significant atherosclerotic disease. Bilateral vertebral arteries are patent, without flow-limiting stenosis, occlusion, or dissection. Severe degenerative disk disease cervical spine at C4-C5, C5-C6, and C6-C7, with dorsal disk/ osteophyte complexes and retrolisthesis, resulting in mild to moderate central canal stenosis and bilateral neural foraminal stenosis. Impression: 1. No evidence of carotid atherosclerotic disease, flow-limiting stenosis, occlusion, or dissection. 2. Patent vertebrobasilar system. 3. Severe cervical spondylosis resulting in mild to moderate central canal stenosis from C4-C5 through C6-C7. Measurement of carotid stenosis is based on the residual internal carotid diameter with [place] Symptomatic Carotid Endarterectomy Trial (NASCET) based stenosis levels. CT Angiogram of the Brain Clinical Indications: Dizziness, vertigo, double vision. Technique: CT angiogram of the brain and neck was performed with the uneventful intravenous administration of 85 mL Isovue-370 contrast. Multiplanar reconstructions including 3D reconstructions performed and evaluated on [employer] workstation in order to better evaluate the [place] vessels. Images were manipulated by the radiologist at the computer workstation. Dose reduction techniques were utilized. Findings: Major vessels of the [place] are adequately displayed, demonstrating no evidence of aneurysm, vascular malformation, or occlusion. Moderate narrowing over the midaspect of the right posterior cerebral artery, without complete occlusion. Cerebrovascular atherosclerotic ulcerations of bilateral cavernous and supraclinoid internal carotid arteries. No complete occlusion or intraluminal thrombi. Superior sagittal sinus, transverse sinuses, and major veins demonstrate no evidence of intraluminal thrombi. Impression: 1. Cerebrovascular atherosclerosis. 2. No complete occlusion or intraluminal thrombi. 3. Moderate stenosis of the right posterior cerebral artery, without complete occlusion. Findings and recommendations discussed with Emergency Department physician, Eduin Rice PA-C , at 2115 hours, on March 11, 2018. Final report concurs with initial preliminary interpretation. Dictated By: Avila Miranda Visualized and Interpreted imaging results: Yes Visualized and Interpreted EKG results: Yes EKG additional interpertation: EKG NSR 70s. LAD. no acute ST changes. QTc 454. Assessment & Plan Assessment: Pleasant 78-year-old gentleman with past medical history significant for HTN, glaucoma, hearing deficit presents emergency department today with complaints of worsening dizziness and near-syncope. # Brain mass - brain lesions in the left occipital lobe concerning for metastatic lesions versus glioblastoma versus cerebral abscess. Patient has not had any recent travel outside of the country. Last trip was to [place]. neurosurgery consulted from the emergency department. They recommend additional workup with cruz CT chest abdomen pelvis and Decadron 4 mg q.6 hours. Will plan to provide patient with some IV fluid hydration in order this later in the morning as patient has already had a contrast load. Will repeat a BMP prior to this. # dizziness - likely secondary to brain mass as noted above. Schedule steroids as noted above Assistance with ambulation p.r.n.. # benign essential HTN - blood pressures slightly elevated but still acceptable. Plan to resume patient's home medications when diet is advanced. P.r.n. Hydralazine while NPO. FEN - IVF. electrolyte replacement prn. NPO after midnight pending CT results and neurosurgery recommendations. PPX - SCDs. holding anticoagulation pending studies/recs as above. COR - FULL. patient would not want for prolonged life support. Dispo - patient admitted inpatient status on PCU floor for close cardiac monitoring with report of dizziness. Anticipate greater than 2 midnight stay pending additional workup of brain lesions and need for continued IV steroids.
[2018-03-12] MEDS: NS 1,000 ML IV SCH (00:01)
[2018-03-12] MEDS: DEXAMETHASONE 4 MG/ML VIAL IVP SCH ×4 (03:27→18:04)
[2018-03-12 04:35] LABS: PLATELET COUNT 177 10^3/uL (150-400)
[2018-03-12 04:55] LABS: INR 1.03 (0.83-1.16); PROTIME(PATIENT) 13.7 SEC (12.0-15.0)
[2018-03-12] MEDS: ACETAMINOPHEN 325 MG TAB PO PRN (06:30)
--- NOTE | 2018-03-12 08:47 | PDMN ---
Medical Necessity Medical necessity: [facility] Neurology- pt presents with vertigo, blurry vision, occasional double vision wt. loss MRI shows two L occipital lobe peripheral enhancing masses with surrounding edema most likely representing metastasis vs glio vs cerebral abscess-- neuro consult pend. anticipate > 2 MN ongoing med nec care, further monitoring, eval and tx.
[2018-03-12] MEDS ORDERED: IOPAMIDOL (ISOVUE-300) 100 ML BTL ONE (09:57)
--- NOTE | 2018-03-12 15:19 | NEUSURGPN ---
Assessment/Plan: Assessment: 78 yr old M with several months of visual changes, occipital lobe enhancing lesions Please see full dictated consult when available Plan: -Continue Decadron -Discussed options of biopsy vs resection with patient and . Patient wishes to proceed with resection of cranial mass during this hospitalization. Dr Cook will tentatively plan for surgery Wednesday pending scheduling -Continue to hold ASA -MRI brain with stealth protocol ordered for intraoperative planning -Dr Cook will be by to see patient today as well Please call neurosurgery with any questions/concerns Subjective: denies any pain Objective: AxOx 4 PERRLA EOMI CN 2-12 grossly intact [place] x4 5/5 BUE, BLE Neuro Check Frequency: per routine Urinary Catheter in Place: No - Physician Discussed Patient with Dr.: Cook Patient Seen by Dr.: Cook Neurosurgery Physical Exam - Vitals, I&O, Labs I and O 03/11/18 03/12/18 03/13/18 05:59 05:59 05:59 Intake Total 240 Balance 240 Weight 69.3 kg 69.3 kg Intake: Oral (ml) 240 Other: Number of Voids Toilet 2 Number of Stools Toilet 1 Vital Signs Temp Pulse Resp BP Pulse Ox 36.2 C 91 18 123/79 H 95 03/12/18 11:02 03/12/18 11:02 03/12/18 11:02 03/12/18 11:02 03/12/18 11:02 Laboratory Results 03/12/18 03:04 03/12/18 03:04 ICD10 Worksheet Patient Problems: Problems Problem Status Onset Encephalopathy Acute Hypertension Acute
--- NOTE | 2018-03-12 15:42 | ASMTCMCOM ---
CM Note CM Note Notes: Reviewed chart. Pt admitted for worsening dizziness and a recent syncopal episode. MRI findings show possible brain mets; primary origin unclear at this time. History includes HTN, glaucoma, aneurysm, lower spine repair. Pt is and lives with his . Per MD notes, pt to be seen by Neurosurgery later today. Pt is tentatively scheduled for resection of a cranial mass on Wednesday03/14/[address] Cook. Discharge needs remain unclear at this time. CM will continue to follow. Discharge Plan: To be determined Date Signed: 03/12/2018 03:41 PM Electronically Signed By:Mary Louis RN
--- NOTE | 2018-03-12 16:03 | HOSPPROG ---
Hospitalist Progress Note Assessment/Plan: DIAGNOSES: * brain lesions suggestive of mass versus less likely abscess or other fluid filled lesion, right occiput * vision and balance symptoms, decreased appetite with weight loss, coordination issues and dizziness are certainly related to the above * mild dehydration * chronic essential hypertension I reviewed the MRI images, and the findings unfortunately did not give information that leads to a direct diagnosis and will need at least biopsy to come to a diagnosis. I reviewed his history, his examination, his laboratory findings, his past imaging studies prior to this admission, his other outpatient medical care, and can find nothing that points this to a place for biopsy other than the brain lesions. His CT scan of chest abdomen pelvis reveals no concerning lesions that we could biopsy. I reviewed the case today in detail with Rima tsai of Neurosurgery. I have discussed with the patient and family that he will either need resection or biopsy and that the Neurosurgery team will be seeing him today. This will probably occur on Wednesday but he will need to get schedule. The patient sounds very interested in proceeding as we are able to getting him a diagnosis and beginning treatment. PLANS: * Continue high-dose steroid * Continue to hold aspirin therapy * Non medicinal DVT prophylaxis due to brain lesions at this time, encourage frequent leg exercises and ambulation * Neurosurgery consult is pending I spent greater than 50 min at the bedside with the patient and his family today in hospitalist rounds and multidisciplinary team rounds in addition to the time spent earlier today by Dr. Fortune on her admission activities SUBJECTIVE: Patient feels no change in his symptoms today so far OBJECTIVE Vitals reviewed: All stable without fever, O2 sats good Optometric Aide, my review: Sinus Exam: alert oriented skin warm dry color ok resps not labored lungs clear BSs heart regular abd soft nondistended nontender, bowel sounds present limbs warm, no edema iv site ok Laboratory data: Repeat CBC unremarkable Repeat metabolic panel has a improvement in the BUN, liver panel is normal CT scan of abdomen and pelvis were done today and I reviewed the images from both studies as well as the CT scan of chest which I reviewed. There are no lesions in either these studies that raise concern for any particular illness or problem related to his presenting symptoms or the brain lesions. 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 I reviewed the CT angio from January and do see the aneurysm on the images appears unchanged. I also reviewed MRI images of the brain from August of this year when he presented with an episode of what was felt to be possible transient global amnesia. The lesions seen on the current MRI were not visible on that study. Objective: Vital Signs Temp Pulse Resp BP Pulse Ox 36.6 C 100 15 122/83 H 94 03/12/18 15:30 03/12/18 15:30 03/12/18 15:30 03/12/18 15:30 03/12/18 15:30 Laboratory Results 03/12/18 03:04 03/12/18 03:04 03/11/18 03/12/18 03/13/18 06:59 06:59 06:59 Intake Total 240 Balance 240 PT 13.7 SEC (12.0-15.0) 03/12/18 03:04 INR 1.03 (0.83-1.16) 03/12/18 03:04 ICD10 Worksheet Patient Problems: Problems Problem Status Onset Encephalopathy Acute Hypertension Acute
--- NOTE | 2018-03-12 16:09 | GCON ---
INPATIENT CONSULTATION CHIEF COMPLAINT: Brain mass. 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 The patient states that he feels as though the top part of his head was "cloudy" and he has an unanswered 10 pound weight loss recently. The patient has a history of admission in August for transient global amnesia where he reportedly underwent an MRI of the brain which just showed atrophy and no intracranial mass at that time. The patient denies any weakness in his extremities and is otherwise neurologically intact, aside from his reported visual disturbances. The patient notes that 4 days ago all of his symptoms were completely gone, but unfortunately they returned last evening rather aggressively and his brought him to the emergency room for evaluation. MRI of the brain was done and was shown to have 2 enhancing occipital lesions. We were called for consultation. REVIEW OF SYSTEMS: A 10-point review of systems was performed and negative aside from what was mentioned in the HPI. ALLERGIES: The patient has no known drug allergies. HOME MEDICATIONS: 1. Aspirin 81 mg daily. 2. Xalatan 0.005% 1 drop to left eye at bedtime. 3. Multivitamin. 4. Viagra 50-100 mg daily p.r.n. 5. Timoptic 0.5% 1 drop left eye daily. 6. Lisinopril/hydrochlorothiazide 1 p.o. daily. PAST MEDICAL HISTORY: 1. Hypertension. 2. Glaucoma. 3. Hard of hearing. 4. Known left femoral aneurysm. PAST SURGICAL HISTORY: Aneurysm in the lower spine repaired in 1994, left cataract replacement. FAMILY HISTORY: The patient reports that both his mother and father lived well into their 90s. The patient's father had dementia and denies any known cancers in the family history. SOCIAL HISTORY: The patient has never smoked. He drinks 1 beer occasionally. Denies any illicit drug use. 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 He is and lives with his . LABORATORY RESULTS: White blood cell count 6.18, hemoglobin 14.1, hematocrit 40.1, platelets 177. PT 13.7, INR 1.03, APTT 30.3. Sodium 137, potassium 4.5, BUN 28, creatinine 0.9, glucose 115. DIAGNOSTIC IMAGING: MRI of the brain performed with and without contrast on March 11, 2018, demonstrates 2 left occipital lobe peripheral enhancing masses up to 3.3 x 2.4 cm with surrounding edema, most likely representing metastasis. Less likely differential includes multifocal glioblastoma or cerebral abscesses. No acute hemorrhage. No definite acute infarct or hydrocephalus. The patient has a few nonspecific hyperintense T2 FLAIR signal abnormalities in the white matter of the bilateral cerebral hemispheres. Differential diagnosis includes mild microvascular ischemic gliosis. CTA of the head and neck performed on March 11, 2018, demonstrates no evidence of carotid disease with a patent vestibular basal system. The patient has severe cervical spondylosis seen in the CTA neck with [id number] canal stenosis from C4 through C7. CT of the chest, abdomen, and pelvis performed February, shows no evidence for primary malignancy or metastatic disease. PHYSICAL EXAM: VITAL SIGNS: Blood pressure 123/79, heart rate 91, respiratory rate 18, oxygen saturations 95% on room air, temperature 36.2 degrees Celsius. HEENT: Head is normocephalic and atraumatic. Pupils are equal, round, and reactive to light. EOMIs intact. Full visual story by confrontation. GENITOURINARY and RECTAL: Deferred. CARDIAC and RESPIRATORY: Deferred. NEUROLOGIC: The patient is awake and alert and oriented to name, place, location, date, time, and situation. His memory is intact to immediate past and current events. Speech: No aphasia or dysphonia. Cranial nerves 2-12 are grossly intact. Motor: The patient has 5/5 strength in all muscle groups in bilateral upper and lower extremities to include deltoids, biceps, triceps, brachioradialis, wrist flexion, extensors, registered nurse float pool, intrinsic fingers, iliopsoas, quadriceps, hamstring, plantar flexion, dorsiflexion, EHL testing. Sensation is grossly intact to light touch throughout all dermatomal distributions, bilateral lower extremities. Brachioradialis and knee jerk are 2+/4. Toes are downgoing bilaterally. Cherie sign is negative. ASSESSMENT AND PLAN: The patient is a 78-year-old male who presented to the emergency department last night after several months of ongoing visual disturbances and not feeling right. The patient underwent an MRI of the brain which showed 2 enhancing lesions in the occipital lobe of the brain. The patient was started on steroids, getting Decadron 4 mg q.6 hours, and underwent a CT scan of the chest, abdomen, and pelvis which did not show any evidence for a primary malignancy. I discussed with the patient options of a biopsy versus resection of the mass, and patient wishes to proceed with resection during this hospitalization. The patient understands that we will need to await pathology results to determine the course of care following surgery. Dr. Cook will be by to speak with the patient about surgery, we may tentatively plan for surgery on Wednesday with Dr. Cook pending scheduling. We will hold his aspirin at this time in preparation for surgery and we will get a new MRI of the brain with [employer] protocol for intraoperative planning prior surgery. The patient and his agree with the plan. The patient was seen and examined by neurosurgical services today on March 12, 2018, at 2:30 p.m. Please call Neurosurgery with any questions or concerns. NEUROSURGERY STAFF I stopped by and spoke to Delta for quite some time this evening. 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 We discussed his symptoms of right hemianopsia and the fact that I don't think that it will get too much better with surgery, and in fact it may get worse. I told him that I think the best course of action would be surgical resection so that we can determine the diagnosis and then see what the next steps in treatment are. We will hopefully be able to do this on Wednesday. He is very happy with this plan and I answered all of his questions. Joyce /[id number]/MODL MTDD
[2018-03-12] MEDS: LATANOPROST 0.005% 2.5 ML OPHT DROPS LEFTEYE SCH (20:19)
[2018-03-13] MEDS: DEXAMETHASONE 4 MG/ML VIAL IVP SCH ×4 (00:39→17:55)
--- NOTE | 2018-03-13 08:52 | NEUSURGPN ---
Assessment/Plan: Assessment: 78 yr old M with several months of visual changes, occipital lobe enhancing lesions Plan: -Continue Decadron -Discussed options of biopsy vs resection with patient and . Patient wishes to proceed with resection of cranial mass during this hospitalization. Patient scheduled for surgery tomorrow (Wednesday) at 1530 -Continue to hold ASA -Pre op orders in -NPO at midnight -MRI brain with stealth protocol ordered for intraoperative planning pending for today -Discussed patient with Dr Cook Please call neurosurgery with any questions/concerns Subjective: No new events, had a good night Objective: AxO x4 CN 2-12 grossly intact PERRLA, EOMI MAEx4 Neuro Check Frequency: per routine Urinary Catheter in Place: No - Physician Discussed Patient with : Joyce Neurosurgery Physical Exam - Vitals, I&O, Labs I and O 03/12/18 03/13/18 03/14/18 05:59 05:59 05:59 Intake Total 240 2020 Output Total 600 Balance 240 1420 Weight 69.3 kg 69.3 kg Intake: Oral (ml) 240 1120 IV Infused (ml) 900 Ns 1,000 ml @ 100 mls/hr 900 IV CONT ANNA Rx#: [id number] Output: Urine (ml) 600 Toilet 600 Other: Number of Voids Toilet 2 4 Number of Stools Toilet 1 Vital Signs Temp Pulse Resp BP Pulse Ox 36.2 C 82 20 133/82 H 94 03/13/18 07:41 03/13/18 07:41 03/13/18 07:41 03/13/18 07:41 03/13/18 07:41 Laboratory Results 03/12/18 03:04 03/12/18 03:04 ICD10 Worksheet Patient Problems: Problems Problem Status Onset Encephalopathy Acute Hypertension Acute
[2018-03-13] MEDS: MULTIVITAMINS 1 EACH TAB PO SCH (08:58)
[2018-03-13] MEDS: TIMOLOL 0.5% 15 ML OPHT.BTL LEFTEYE SCH (08:59)
[2018-03-13] MEDS ORDERED: GADOBUTROL 10 ML VIAL IVP ONE (11:15)
--- NOTE | 2018-03-13 16:32 | HOSPPROG ---
Hospitalist Progress Note Assessment/Plan: DIAGNOSES: * brain lesions suggestive of mass versus less likely abscess or other fluid filled lesion, right occiput * vision and balance symptoms, decreased appetite with weight loss, coordination issues and dizziness are certainly related to the above * mild dehydration * chronic essential hypertension PLANS: * Continue high-dose steroid * Continue to hold aspirin therapy * Non medicinal DVT prophylaxis due to brain lesions at this time, encourage frequent leg exercises and ambulation * He is scheduled to go to the OR at 2:30 a.m. Tomorrow afternoon. 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: Sinus Exam: alert oriented skin warm dry color ok resps not labored lungs clear BSs heart regular abd soft nondistended nontender, bowel sounds present limbs warm, no edema iv site ok Objective: Vital Signs Temp Pulse Resp BP Pulse Ox 36.7 C 90 18 135/84 H 94 03/13/18 15:25 03/13/18 15:25 03/13/18 15:25 03/13/18 15:25 03/13/18 15:25 Laboratory Results 03/12/18 03:04 03/12/18 03:04 03/12/18 03/13/18 03/14/18 06:59 06:59 06:59 Intake Total 240 2020 Output Total 600 Balance 240 1420 PT 13.7 SEC (12.0-15.0) 03/12/18 03:04 INR 1.03 (0.83-1.16) 03/12/18 03:04 ICD10 Worksheet Patient Problems: Problems Problem Status Onset Encephalopathy Acute Hypertension Acute
[2018-03-13] MEDS: LATANOPROST 0.005% 2.5 ML OPHT DROPS LEFTEYE SCH (20:12)
[2018-03-14] MEDS: DEXAMETHASONE 4 MG/ML VIAL IVP SCH ×4 (00:33→20:19)
[2018-03-14] MEDS: MULTIVITAMINS 1 EACH TAB PO SCH (08:07)
[2018-03-14] MEDS: NS 1,000 ML IV SCH (08:07)
[2018-03-14] MEDS: TIMOLOL 0.5% 15 ML OPHT.BTL LEFTEYE SCH (08:08)
--- NOTE | 2018-03-14 09:30 | NEUSURGPN ---
Assessment/Plan: Assessment: 78 yr old M with several months of visual changes, occipital lobe enhancing lesions Plan: -Continue Decadron -Patient scheduled for surgery today at 1530, patient is marked, consent is signed on chart -Continue to hold ASA -NPO -MRI brain with stealth protocol completed yesterday -Discussed patient with Dr Cook Please call neurosurgery with any questions/concerns Subjective: no new events Objective: AxO x4 CN 2-12 grossly intact PERRLA, EOMI MAEx4 Neuro Check Frequency: per routine Urinary Catheter in Place: No - Physician Discussed Patient with : Joyce Neurosurgery Physical Exam - Vitals, I&O, Labs I and O 03/13/18 03/14/18 03/15/18 05:59 05:59 05:59 Intake Total 2019 1480 Output Total 600 Balance 1420 1480 Weight 69.3 kg 69.1 kg Intake: Oral (ml) 1120 1480 IV Infused (ml) 900 Ns 1,000 ml @ 100 mls/hr 900 IV CONT ANNA Rx#: [id number] Output: Urine (ml) 600 Toilet 600 Other: Number of Voids Toilet 4 3 1 Number of Stools Toilet 1 Vital Signs Temp Pulse Resp BP Pulse Ox 36.3 C 82 18 150/95 H 95 03/14/18 07:56 03/14/18 07:56 03/14/18 07:56 03/14/18 07:56 03/14/18 07:56 Laboratory Results 03/12/18 03:04 03/12/18 03:04 ICD10 Worksheet Patient Problems: Problems Problem Status Onset Encephalopathy Acute Hypertension Acute
--- NOTE | 2018-03-14 12:27 | HOSPPROG ---
Hospitalist Progress Note Assessment/Plan: DIAGNOSES: * brain lesions suggestive of mass versus less likely abscess or other fluid filled lesion, right occiput * vision and balance symptoms, decreased appetite with weight loss, coordination issues and dizziness are certainly related to the above * mild dehydration * chronic essential hypertension PLANS: * Continue high-dose steroid * Continue to hold aspirin therapy at present * Non medicinal DVT prophylaxis due to brain lesions at this time, encourage frequent leg exercises and ambulation * To OR for planned stereotactic surgery with attempt of resection of his lesions today Seen by me on hospitalist rounds and multidisciplinary team rounds Reviewed with Rima Liu SUBJECTIVE: No new symptoms Since starting the steroids his dizziness is a little bit better but still present, still slightly wobbly on his feet No nausea OBJECTIVE Vitals reviewed: Mild systolic hypertension otherwise stable without fever, O2 sats good Stripper Latex, my review: Sinus Exam: alert oriented skin warm dry color ok resps not labored lungs clear BSs heart regular abd soft nondistended nontender, bowel sounds present limbs warm, no edema iv site ok Objective: Vital Signs Temp Pulse Resp BP Pulse Ox 36.3 C 75 16 140/89 H 97 03/14/18 11:38 03/14/18 11:38 03/14/18 11:38 03/14/18 11:38 03/14/18 11:38 Laboratory Results 03/12/18 03:04 03/12/18 03:04 03/13/18 03/14/18 03/15/18 06:59 06:59 06:59 Intake Total 2020 1480 Output Total 600 Balance 1420 1480 PT 13.7 SEC (12.0-15.0) 03/12/18 03:04 INR 1.03 (0.83-1.16) 03/12/18 03:04 ICD10 Worksheet Patient Problems: Problems Problem Status Onset Encephalopathy Acute Hypertension Acute
[2018-03-14] MEDS ORDERED: CHLORHEXIDINE GLUC HIBICLENS 118 ML BTL TP ONE (14:01)
[2018-03-14] MEDS ORDERED: BUPIVACAINE/EPI 0.25% 30 ML SDV ONE (14:01)
[2018-03-14] MEDS ORDERED: GENTAMICIN SULFATE 80 MG/2 ML VIAL ONE (14:01)
[2018-03-14] MEDS ORDERED: THROMBIN (BOVINE) 5,000 UNIT VIAL TP ONE (14:01)
[2018-03-14] MEDS ORDERED: SURGIFLO MATRIX KIT WITH THROMBIN 8 ML TP ONE (14:01)
[2018-03-14] MEDS ORDERED: BACITRACIN ZINC 14.2 GM OINTTUBE TP ONE (14:02)
--- NOTE | 2018-03-14 15:23 | PDANEPAE ---
ANE History of Present Illness Brain tumor ANE Past Medical History - Cardiovascular History Hx Hypertension: Yes - Pulmonary History Hx Oxygen in Use at Home: No Hx Sleep Apnea: No Sleep Apnea Screening Result - Last Documented: Positive - Endocrine History Hx Diabetes: No - Chronic Pain History Chronic Pain: No ANE Review of Systems Review of Systems: ANE Patient History - Allergies Allergies/Adverse Reactions: No Known Allergies Allergy (Verified 09/13/17 10:39) - Home Medications Home medications: home medication list seen and reviewed Home Medications: Aspirin [Aspirin 81mg (*)] 81 mg PO DAILY 09/13/17 [Last Taken 03/11/18] Latanoprost 0.005% [Xalatan 0.005% (*)] 1 drops LEFTEYE HS 09/13/17 [Last Taken 03/13/18] Multivitamins [Multivitamin (*)] 1 each PO DAILY 09/13/17 [Last Taken 03/11/18] Sildenafil Citrate [Viagra 50 MG (*)] 50 - 100 mg PO DAILY PRN 09/13/17 [Last Taken Unknown] Timolol 0.5% [TIMOPTIC 0.5% (*)] 1 drops LEFTEYE DAILY 09/13/17 [Last Taken ] Lisinopril/Hydrochlorothiazide [Zestoretic 20-25 mg Tablet] 1 each PO DAILY [Last Taken 03/11/18] - NPO status NPO Status: no food or drink >8 hours NPO Since - Liquids (Date): 03/14/18 NPO Since - Liquids (Time): 00:00 NPO Since - Solids (Date): 03/13/18 NPO Since - Solids (Time): 07:30 - Anes Hx Anes Hx: no prior problems - Smoking Hx Smoking Status: Never smoked - Alcohol Use Alcohol Use: Occasionally (Patient drinks 1 beer daily occasionally 2.) ANE Labs/Vital Signs - Labs Result Diagrams: 03/12/18 03:04 03/12/18 03:04 - Vital Signs Blood Pressure: 167/93 Heart Rate: 64 Respiratory Rate: 12 O2 Sat (%): 96 Height: 177.8 cm Weight: 69.1 kg ANE Physical Exam - Airway Neck exam: FROM Mallampati Score: Class 2 Mouth exam: normal dental/mouth exam - Pulmonary Pulmonary: no respiratory distress - Cardiovascular Cardiovascular: regular rate and rhythym - ASA Status ASA Status: III ANE Anesthesia Plan Anesthesia Plan: general endotracheal anesthesia Lines/Monitors: arterial line
[2018-03-14] MEDS ORDERED: ceFAZolin 2 GM/DEXTROSE 100 ML IV ONE (15:30)
[2018-03-14] MEDS ORDERED: LR 1,000 ML IV ONE (15:53)
[2018-03-14] MEDS ORDERED: MIDAZOLAM 2 MG/2 ML VIAL IVP ONE (16:05)
[2018-03-14] MEDS ORDERED: ROCURONIUM 50 MG/5 ML VIAL ONE (16:13)
[2018-03-14] MEDS ORDERED: fentaNYL 100 MCG/2 ML INJ ONE ×2 (16:14→17:15)
[2018-03-14] MEDS ORDERED: LIDOCAINE 2% 5 ML SDV ONE (16:15)
[2018-03-14] MEDS ORDERED: PROPOFOL 200 MG/20 ML VIAL ONE (16:15)
[2018-03-14] MEDS ORDERED: ONDANSETRON 4 MG/2 ML VIAL IVP PRN (18:37)
[2018-03-14] MEDS ORDERED: NALOXONE HCL 0.4 MG/ML INJ IVP PRN (18:37)
[2018-03-14] MEDS ORDERED: HYDROmorphONE/DILAUDID 2 MG/ML INJ IVP PRN (18:37)
[2018-03-14] MEDS ORDERED: fentaNYL 100 MCG/2 ML INJ IVP PRN (18:37)
[2018-03-14] MEDS ORDERED: SUGAMMADEX SODIUM 200 MG/2 ML VIAL IVP ONE (18:39)
--- NOTE | 2018-03-14 19:21 | POSTOPPROG ---
Post Op Note Date of Operation: 03/14/18 Surgeon: Demetrio Cook Business Continuity Manager: KENDAL Ruth Anesthesiologist: MD Heladio Anesthesia: GET(General Endotracheal), Local (Specify) Pre-op Diagnosis: left occipital brain mass Post-op Diagnosis: left occipital brain mass Indication: vision changes, MRI shows mass Procedure: left occipital craniotomy Findings: see op note Inf/Abcess present in the surg proc area at time of surgery?: No Depth: Deep Incisional (Fascial) EBL: 100-500 Total fluids administered: see anesthesia record Complications: none
--- NOTE | 2018-03-14 19:28 | SOAPPROG ---
SOAP Progress Note Assessment/Plan: Post Op Visit S: Sleepy but arousable, mumbling. NAD O: AFVSS/PERRLA/EOMI no droop CHANCE x 4 FC x 4 CDI A/P: 78 yo male that is s/p left occipital craniotomy for tumor debulking -orders in place -call with any questions or concerns -RN updated -MRI brain in am -pt seen by Dr Cook as well Objective: Vital Signs Temp Pulse Resp BP Pulse Ox 36.1 C 64 12 167/93 H 96 03/14/18 15:56 03/14/18 18:01 03/14/18 18:01 03/14/18 18:01 03/14/18 18:01 Laboratory Results 03/12/18 03:04 03/12/18 03:04 03/13/18 03/14/18 03/15/18 05:59 05:59 05:59 Intake Total 2020 1480 Output Total 600 Balance 1420 1480 PT 13.7 SEC (12.0-15.0) 03/12/18 03:04 INR 1.03 (0.83-1.16) 03/12/18 03:04 ICD10 Worksheet Patient Problems: Problems Problem Status Onset Brain mass Acute Encephalopathy Acute Hypertension Acute - ICD10 Problem Qualifiers (1) Brain mass
[2018-03-14] MEDS ORDERED: POLYETHYLENE GLYCOL 3350 17 GM PKT PO PRN (19:29)
[2018-03-14] MEDS ORDERED: LACTULOSE 20 GM/30 ML UDCUP PO PRN (19:29)
[2018-03-14] MEDS ORDERED: MAGNESIUM HYDROXIDE 30 ML UDCUP PO PRN (19:29)
[2018-03-14] MEDS ORDERED: BISACODYL 10 MG SUPP PR PRN (19:29)
[2018-03-14] MEDS ORDERED: OXYCODONE/APAP 5/325 TAB PO PRN (19:29)
[2018-03-14] MEDS ORDERED: NS W/ 20 KCl/L 1,000 ML IV SCH (19:30)
[2018-03-14] MEDS ORDERED: *MD ORDERING ONLY-DEXAMETHASONE TAPER PO SCH (19:30)
[2018-03-14] MEDS ORDERED: niCARdipine/NACL/200 ML BAG IV ONE (19:33)
--- NOTE | 2018-03-14 19:45 | POSTANESTH ---
Post Anesthetic Evaluation Cardiovascular Status: Similar to Pre-Op Cond, Tx Hyper/Hypo-tension Respiratory Status: Similar to Pre-op Cond. Level of Consciousness/Mental Status: Mildly Sleepy, Arousable (Confused) Pain Control: Adequate, Prn Tx Ordered Nausea/Vomiting Control: Adequate, Prn Tx Ordered Complications Possibly Related to Anesthesia: Other, See Comments (Pulled a- line out. struggling. Checking neurosurgery orders for sedative.)
[2018-03-14] MEDS ORDERED: DEXAMETHASONE 4 MG TAB PO SCH (20:00)
[2018-03-14] MEDS ORDERED: DEXMEDETOMIDINE HCL 400 MCG in NS 100 ML IV SCH (20:00)
[2018-03-14] MEDS: niCARdipine/NACL 200 ML IV PRN (20:00)
[2018-03-14] MEDS: DEXAMETHASONE 4 MG TAB PO SCH (20:24)
[2018-03-14] MEDS: levETIRAcetam 500 MG TAB PO SCH (20:24)
[2018-03-14] MEDS: SENNOSIDES/DOCUSATE SODIUM TAB PO SCH (20:24)
[2018-03-14] MEDS: LATANOPROST 0.005% 2.5 ML OPHT DROPS LEFTEYE SCH (20:25)
[2018-03-14] MEDS: ACETAMINOPHEN 325 MG TAB PO PRN (22:41)
[2018-03-15] MEDS: niCARdipine/NACL 200 ML IV PRN (00:08)
[2018-03-15] MEDS: DEXAMETHASONE 4 MG TAB PO SCH ×4 (01:31→19:42)
[2018-03-15] MEDS ORDERED: PROMETHAZINE HCL 25 MG/ML INJ ONE (02:14)
[2018-03-15] MEDS ORDERED: PROMETHAZINE HCL 25 MG/ML INJ IVP PRN (02:15)
[2018-03-15 06:02] LABS: PLATELET COUNT 163 10^3/uL (150-400)
[2018-03-15] MEDS: NS 1,000 ML IV SCH (06:08)
[2018-03-15] MEDS: ACETAMINOPHEN 325 MG TAB PO PRN (06:08)
--- NOTE | 2018-03-15 06:09 | GOP ---
DATE OF OPERATION: 03/14/2018 SURGEON: Demetrio Cook MD STATEMENT SERVICES REPRESENTATIVE: Corwin Ruth PA-C. ANESTHESIA: General endotracheal. PREOPERATIVE DIAGNOSIS: Left occipital brain tumor. POSTOPERATIVE DIAGNOSIS: Left occipital brain tumor. PROCEDURE PERFORMED: 1. Left occipital craniotomy. 2. Microsurgical gross total resection of glioma. 3. Use of the operative microscope. 4. Stealth stereotactic navigation for volumetric gross total resection of intrinsic brain tumor. FINDINGS: Successful tumor resection. SPECIMENS: Left occipital brain mass. ESTIMATED BLOOD LOSS: 50 cc. INDICATIONS: The patient is a 78-year-old man, who presented after about a month of increasing visua l loss and some other more subtle symptoms. MRI of the brain showed multifocal, contrast-enhancing, internally necrotic mass in the left occipital lobe on either side of the occipital horn of the later al ventricle. This appears likely a glioblastoma. I discussed with him the options, but elected tow lizzy surgical resection and biopsy. We proceed electively today. DESCRIPTION OF PROCEDURE: After informed consent was obtained from the patient, the patient was brou ght to the operating room and a formal time-out was performed, identifying the patient by name, medic al record number, and date of . Preoperative antibiotics were given, endotracheal tube was plac ed, and general endotracheal anesthesia was smoothly induced. The patient was then placed in the May field pins and turned into the prone position on the operating table, and all appropriate pressure po ints were padded and checked. The Stealth was then registered to the scalp and checked for accuracy using known surface landmarks. This was then used to plan a linear incision in the left occipital re gion over the shortest trajectory to the tumor. The hair was clipped. 10 cc of 0.25% Marcaine with epinephrine was infiltrated in the skin for hemostasis. The head was then prepped and draped in the normal sterile fashion. A skin incision was made using a 10 blade in the subcutaneous tissue and dis sected using monopolar electrocautery. Fredy clips were placed for hemostasis. Bur holes were place d superiorly and inferiorly, and a roughly 4 cm oval craniotomy flap was turned with the tumor in the center. All bleeding was controlled with bipolar electrocautery, and a few dural tack-up stitches w ere placed. The dura was then opened in a cruciate fashion. The operative microscope was then broug ht into the field and the remainder of the procedure was performed under high-power magnification. F irst, we localized the area of the tumor with the Stealth, and this was in 1 gyrus between 2 sulci. Under the operative high-power magnification, we then split both of these sulci, deepening the dissec tion. Once we were at the bottom of the sulcus, a corticectomy was made and necrotic tissue was easi ly visualized. This was then biopsied and sent for frozen section, which did return as a high-grade glioma. Next, as we moved deeper, there was a fluid-filled cyst which was drained. The tissue appeared quite necrotic with some thrombosed veins around the tumor as well. We then carefully dissected around th e tumor capsule until normal white matter was visualized, and the tumor was removed in a piecemeal fa shion. The ultrasonic aspirator was used to remove some of the tumor. At the lateral aspect of the dissection, we encountered the occipital horn, and a piece of Gelfoam was placed in the ventricle to avoid any blood entering. This took us down to the more inferior and lateral portions of the tumor o n the opposite side of the ependyma. The ultrasonic aspirator was used to remove this portion of the tumor as well, and we removed this down to the peel surface near the tentorium. Again, the margins of the resection were checked using the Stealth and visually to be sure that I did not see any furthe r tissue which appeared necrotic or likely to be tumor. At this point, Surgicel was placed on the mo re inferior portion lateral to the occipital horn, and we inspected the cavity more superficially. A little more tumor was visualized and this was also removed using the ultrasonic aspirator. The enti re cavity was then lined with Surgicel. The wound was copiously irrigated using sterile saline. The re was no further bleeding. Hence, this was suggestive that the tumor was completely resected. The dura was tacked closed using interrupted 4-0 Nurolon, and a piece of DuraGen was used to cover the du ral opening. The craniotomy flap was then plated back in place using Synthes titanium plates and scr ews. The wound was copiously irrigated using bacitracin irrigation, the galea was closed using inter rupted 2-0 Vicryl, and the skin was closed using a running 4-0 Monocryl. The hair was washed and yuliana rile dressings were placed. The patient was awakened in the operating room and was transferred to [facility] PACU in stable condition. There were no operative complications. I was scrubbed and present the e ntire procedure. All sponge and needle counts were correct at the end of the case. FLUIDS/URINE OUTPUT: Per the Anesthesia record. DRAINS: There were no drains. /[id number]/MODL
--- NOTE | 2018-03-15 07:23 | NEUSURGPN ---
Date of Surgery: 03/14/18 Post Op Day: 1 Assessment/Plan: Assessment: 78 yo male that is s/p left occipital craniotomy for tumor debulking POD #1 Plan: -s/o left occipital crani for tumor ID and debulking: doing better this am. Pts speech is better -PT/OT/ST ordered -no strenuous activities -HOB up to 30-45 -orders in place -call with any questions or concerns -RN updated -MRI brain pending this am -d/w Dr Cook -plan for possible floor later today depending on how he does with PT/OT/ST and after MRI is completed Subjective: Awake and alert. Pt doing better this am. No new events. No neck/chest/abd or gu complaints. No f/c/n/v/d. Objective: AAO x 3 AFVSS/PERRLA/EOMI no droop CHANCE x 4/5/5 BUE/BLE = FC x 4 CDI Neuro Check Frequency: per routine Urinary Catheter in Place: No Catheter Insertion Date: 03/14/18 - Physician Discussed Patient with : Joyce Neurosurgery Physical Exam - Vitals, I&O, Labs I and O 03/14/18 03/15/18 03/16/18 05:59 05:59 05:59 Intake Total 1480 1550 Output Total 1000 Balance 1480 550 Weight 69.1 kg 69.2 kg Intake: Oral (ml) 1480 250 IV Infused (ml) 1300 NS W/ 20 KCl/L 1,000 ml @ 1100 100 mls/hr IV CONT ANNA Rx#:[id number] niCARdipine/NACL 200 ml @ 200 Titrate IV PRN PRN Rx#: [id number] Output: Urine (ml) 1000 Toilet 1000 Other: Number of Voids Toilet 3 1 Number of Stools Toilet 1 0 Vital Signs Temp Pulse Resp BP Pulse Ox 36.6 C 72 15 109/70 97 03/15/18 04:00 03/15/18 06:00 03/15/18 06:00 03/15/18 06:00 03/15/18 06:00 Laboratory Results 03/15/18 05:40 03/15/18 05:40 ICD10 Worksheet Patient Problems: Problems Problem Status Onset Brain mass Acute Encephalopathy Acute Hypertension Acute - ICD10 Problem Qualifiers (1) Brain mass
--- NOTE | 2018-03-15 07:44 | HOSPPROG ---
Hospitalist Progress Note Assessment/Plan: DIAGNOSES: * brain mass versus right occiput, resected yesterday via occipital craniotomy, stealth procedure -suspicious for GBM, path pending -very stable post op * vision and balance symptoms, decreased appetite with weight loss, coordination issues and dizziness are certainly related to the above * mild dehydration * chronic essential hypertension PLANS: * Continue high-dose steroid * Continue to hold aspirin from home med list; he does not really have a good indication for this * Non medicinal DVT prophylaxis due to brain lesions at this time with MRI pending today, Maya will make recommendations after; encourage frequent leg exercises and ambulation * Await pathology; will need onc consult eventally * begin PT OT today to assess mobility and balance * When transfers out of ICU will not need cardiac harness and bag inspector I reviewed in detail today with Pillo Ruth of [facility] SUBJECTIVE: headache is very tolerable, no nausea no vision changes no sxs of fever, cardiac or pulm issues eating OBJECTIVE Vitals reviewed: All normal without fever Loan Assistant, my review: Sinus Exam: alert oriented talkative, mentating well, no focal neuro changes skin warm dry color ok resps not labored lungs clear BSs heart regular abd soft nondistended nontender, bowel sounds present limbs warm, no edema iv site ok Lab data: wbc up a bit otherwise nl cbc stable chem panel, BUN remains slightly high Objective: Vital Signs Temp Pulse Resp BP Pulse Ox 36.6 C 72 15 109/70 97 03/15/18 04:00 03/15/18 06:00 03/15/18 06:00 03/15/18 06:00 03/15/18 06:00 Laboratory Results 03/15/18 05:40 03/15/18 05:40 03/14/18 03/15/18 03/16/18 06:59 06:59 06:59 Intake Total 1480 1550 Output Total 1000 Balance 1480 550 PT 13.7 SEC (12.0-15.0) 03/12/18 03:04 INR 1.03 (0.83-1.16) 03/12/18 03:04 - Time Spent With Patient Time Spent with Patient: greater than 35 minutes Time Spent with Patient: Greater than 35 minutes spent on this patients care, greater than 50% of time spent counseling, educating, and coordinating care regarding the above mentioned plan. ICD10 Worksheet Patient Problems: Problems Problem Status Onset Brain mass Acute Encephalopathy Acute Hypertension Acute
[2018-03-15] MEDS: levETIRAcetam 500 MG TAB PO SCH ×2 (08:42→19:42)
[2018-03-15] MEDS: MULTIVITAMINS 1 EACH TAB PO SCH (08:42)
[2018-03-15] MEDS: TIMOLOL 0.5% 15 ML OPHT.BTL LEFTEYE SCH (08:45)
[2018-03-15] MEDS: SENNOSIDES/DOCUSATE SODIUM TAB PO SCH ×2 (08:47→19:42)
--- NOTE | 2018-03-15 13:07 | GCON ---
[facility] CONSULTATION REASON FOR CONSULTATION: Brain mass, status post right craniotomy with tumor ID and debulking. HISTORY OF PRESENT ILLNESS: The patient is a 78-year-old white male with a past medical history incl uding hypertension and glaucoma. He was admitted on March 11, 2018, with complaints of worsening dizziness and presyncope at home. He was seen in the emergency room, which led to an MRI of [facility], which revealed 2 left occipital peripheral enhancing masses, 3.3 x 2.4 cm, with surrounding edema. He was subsequently admitted to the floor. On 03/14, he underwent left occipital craniotomy for tu mor debulking. In discussion with the patient, he states overall he is doing quite well. He feels m arkedly improved since admission. He does complain of some dizziness. He denies any chest pain, ple uritic-type chest pain or angina equivalent. There is no fever or night sweats. No nausea, vomiting , or diarrhea. He is currently feeling somewhat better. PAST MEDICAL HISTORY: Includes hypertension, glaucoma, and difficulty hearing. FAMILY HISTORY: Noncontributory. SOCIAL HISTORY: No history of tobacco use. Infrequent alcohol use. 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 He is , has excellent family support. MEDICATIONS: At home include aspirin, Xalatan, multivitamin, Viagra, Timoptic, and Zestoretic. REVIEW OF SYSTEMS: Ten-point review of systems was performed, negative except for what is listed in the HPI. PHYSICAL EXAM: VITAL SIGNS: Blood pressure is 140/72, pulse 74, respirations 26, temperature 36.6, oxygen saturation 95% on room air. GENERAL: He is a well-developed, well-nourished, elderly white m itzel who is resting comfortably, in no acute distress. HEENT: Eyes are PERRL, EOMI. Throat shows no erythema or tonsillar hypertrophy. NECK: Supple. There is no cervical adenopathy. HEART: Regula r rate and rhythm, without murmurs, rubs, or gallops. LUNGS: Diminished breath sounds, but no wheez e. ABDOMEN: Soft, nontender. Bowel sounds are present in all 4 quadrants. EXTREMITIES: No clubbi ng, cyanosis, or edema. LABORATORIES: White count is 12, hemoglobin 13, hematocrit 40. Platelet count is 163. Sodium 144, potassium 4.4, chloride 109. CO2 is 24, BUN 28, creatinine 0.9. Glucose is 107. IMAGING: CT scan of the chest shows coronary artery disease, but no evidence for primary malignancy or metastatic disease. CT scan of the abdomen/pelvis showed no obvious mass. IMPRESSION: 1. Brain mass, status post craniotomy and debulking. 2. Dizziness and presyncope. 3. Hypertension. 4. Glaucoma. RECOMMENDATIONS: 1. Adequate pain control. 2. DVT and PE prophylaxis, holding anticoagulation for now. 3. Stress ulcer prophylaxis. 4. Adequate nutrition. 5. Patient is scheduled for repeat MRI. /[id number]/MODL
[2018-03-15] MEDS ORDERED: GADOBUTROL 10 ML VIAL IVP ONE (14:10)
--- NOTE | 2018-03-15 16:48 | ASMTCMCOM ---
CM Note CM Note Notes: Patient had a brain mass and crani. Therapies all recommending In-pt Rehab. Date Signed: 03/15/2018 04:47 PM Electronically Signed By:Brandie Gomez LCSW
[2018-03-15] MEDS: LATANOPROST 0.005% 2.5 ML OPHT DROPS LEFTEYE SCH (19:41)
[2018-03-16] MEDS: HYDROCODONE/APAP 5/325 TAB PO PRN ×3 (03:44→18:19)
[2018-03-16] MEDS: DEXAMETHASONE 4 MG TAB PO SCH ×3 (03:45→20:23)
[2018-03-16] MEDS: MULTIVITAMINS 1 EACH TAB PO SCH (08:43)
[2018-03-16] MEDS: SENNOSIDES/DOCUSATE SODIUM TAB PO SCH ×2 (08:43→20:23)
[2018-03-16] MEDS: levETIRAcetam 500 MG TAB PO SCH ×2 (08:45→20:23)
[2018-03-16] MEDS: TIMOLOL 0.5% 15 ML OPHT.BTL LEFTEYE SCH (08:48)
--- NOTE | 2018-03-16 08:49 | NEUSURGPN ---
Assessment/Plan: Assessment/Plan: Assessment: 78 yo male that is s/p left occipital craniotomy for tumor debulking POD #1 Plan: -s/o left occipital crani for tumor ID and debulking: doing better this am. Stated originally that he had bilateral hemianopsia but this morning patient states is only having peripheral field defects on the right which is as expected given where tumor was taken from. -MRI reviewed and shows good resection, there is one questionable area of residual but may be operative changes, will have to see on later MRI how this looks. No acute infarcts -PT/OT/ST ordered -Taper steroids over 10 days -call with any questions or concerns -d/w Dr Cook -Ok to transfer to the floor -Q4 hour neuro checks Subjective: Doing better this am. Vision peripherally altered on the right. Fine on the left. Objective: AAO x 3 AFVSS/PERRLA/EOMI no droop Visual field defect on the right TOWNSEND x 4/5/5 BUE/BLE = CDI Catheter Insertion Date: 03/14/18 - Physician Patient Seen by : [facility] Neurosurgery Physical Exam - Vitals, I&O, Labs I and O 03/15/18 03/16/18 03/17/18 05:59 05:59 05:59 Intake Total 1550 450 Output Total 1000 850 Balance 550 -400 Weight 69.2 kg 69.2 kg Intake: Oral (ml) 250 450 IV Infused (ml) 1300 NS W/ 20 KCl/L 1,000 ml @ 1100 100 mls/hr IV CONT ANNA Rx#:[id number] niCARdipine/NACL 200 ml @ 200 Titrate IV PRN PRN Rx#: [id number] Output: Urine (ml) 1000 850 Toilet 1000 Urinal 850 Other: Intake Quantity Yes Sufficient Number of Voids Toilet 1 2 Urinal 1 Number of Stools Toilet 0 Urinal 0 Vital Signs Temp Pulse Resp BP Pulse Ox 36.6 C 92 20 147/93 H 95 03/16/18 07:29 18 07:29 18 07:29 03/16/18 07:29 03/16/18 07:29 Laboratory Results 03/15/18 05:40 03/15/18 05:40 ICD10 Worksheet Patient Problems: Problems Problem Status Onset Brain mass Acute Encephalopathy Acute Hypertension Acute
--- NOTE | 2018-03-16 09:40 | PDINTPN ---
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 No current complaints. Objective: Vital Signs Temp Pulse Resp BP Pulse Ox 36.6 C 92 20 147/93 H 95 03/16/18 07:29 03/16/18 07:29 03/16/18 07:29 03/16/18 07:29 03/16/18 07:29 Laboratory Results 03/15/18 05:40 03/15/18 05:40 03/15/18 03/16/18 03/17/18 05:59 05:59 05:59 Intake Total 1550 450 Output Total 1000 850 Balance 550 -400 PT 13.7 SEC (12.0-15.0) 03/12/18 03:04 INR 1.03 (0.83-1.16) 03/12/18 03:04 - Time Spent With Patient Time Spent With Patient: 35 min of time spent with patient, over 1/2 involved with coordination of care or counseling. Case discussed with nursing Physical Exam - Physical Exam General Appearance: WD/WN, alert, no apparent distress EENT: PERRL/EOMI Neck: non-tender, full range of motion Respiratory: chest non-tender, lungs clear, normal breath sounds Cardiac/Chest: normal peripheral pulses, regular rate, rhythm Peripheral Pulses: 2+: carotid (R), carotid (L), femoral (R), femoral (L), dorsalis-pedis (R), dorsalis-pedis (L) Abdomen: normal bowel sounds, non-tender, soft Male Genitalia: deferred Rectal: deferred Skin: normal color, warm/dry Extremities: non-tender Neuro/Psych: no motor/sensory deficits, alert, normal mood/affect, oriented x 3 ICD10 Worksheet Patient Problems: Problems Problem Status Onset Brain mass Acute Encephalopathy Acute Hypertension Acute
--- NOTE | 2018-03-16 12:20 | HOSPPROG ---
Hospitalist Progress Note Assessment/Plan: DIAGNOSES: * brain mass right occiput, resected on 03/14 via occipital craniotomy, stealth procedure -suspicious for GBM, path pending -very stable post op * vision and balance symptoms, decreased appetite with weight loss, coordination issues and dizziness are certainly related to the above * mild dehydration * chronic essential hypertension PLANS: * Continue high-dose steroid, taper per neurosurgery * Continue to hold aspirin from home med list; he does not really have a good indication for this * Non medicinal DVT prophylaxis due to brain lesions at this time, NSurg will make recommendations after; encourage frequent leg exercises and ambulation * Await pathology; will need onc consult eventally * Continue PT OT to assess mobility and balance * Transfer out of ICU today per neurosurgery, continue Q4hr Neurochecks Subjective: Patient reports feeling well this morning Objective: Vital Signs Temp Pulse Resp BP Pulse Ox 36.3 C 92 27 H 136/68 H 95 03/16/18 12:00 03/16/18 12:00 03/16/18 12:00 03/16/18 12:00 03/16/18 12:00 Laboratory Results 03/15/18 05:40 03/15/18 05:40 03/15/18 03/16/18 03/17/18 05:59 05:59 05:59 Intake Total 1550 450 Output Total 1000 850 Balance 550 -400 PT 13.7 SEC (12.0-15.0) 03/12/18 03:04 INR 1.03 (0.83-1.16) 03/12/18 03:04 - Physical Exam Constitutional: no apparent distress Eyes: anicteric sclera, EOMI Ears, Nose, Mouth, Throat: moist mucous membranes Cardiovascular: regular rate and rhythym Respiratory: no respiratory distress Gastrointestinal: soft, non-tender abdomen Skin: warm Neurologic: AAOx3 Psychiatric: interacting appropriately ICD10 Worksheet Patient Problems: Problems Problem Status Onset Brain mass Acute Encephalopathy Acute Hypertension Acute
--- NOTE | 2018-03-16 13:51 | ASMTCMCOM ---
CM Note CM Note Notes: Left a message for Vanessa with inpatient rehab to see if they have finished their eval and have a disposition. PT/OT therapies are both recommending Inpatient rehab for the patient. CM will follow. Date Signed: 03/16/2018 01:50 PM Electronically Signed By:Katty Contreras LCSW
--- NOTE | 2018-03-16 18:51 | PDCONSULT ---
Physical Metallurgist Note: Hematology/oncology consultation note Reason for consultation: Presumed new GBM History of present illness: Delta is a very pleasant 78-year-old male who is otherwise fairly healthy who was admitted for evaluation of a brain mass. He states that in the earlier part of the summer 2017 he is noticed some neurological symptoms. He initially stated that he had an episode of what he describes as "global amnesia". He did have an MRI at that time that demonstrated no evidence of a mass. He then continued to have intermittent neurological symptoms including visual disturbances that he noted while flying. He also noted weakness in his extremities intermittently. He then had significant dizziness and presented to the [facility] emergency room. He had an MRI of the brain on that demonstrated 2 left occipital lobe lesions measuring 3.3 x 2.4 cm and another anterior medial mass measuring 2.7 x 1.6 mm. He underwent surgical resection and initially the concern was he had a glioma. Past medical and surgical history: Hypertension Glaucoma Left femoral aneurysm Cataract repair Family history: No malignancies in the family Social history: He used to serve in the . 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 He denies any smoking. He lives here in [place]. Allergies: No known drug allergy Review of systems: 12 point review of system was obtained was otherwise no Meds: Reviewed in [employer] Physical examination: Vitals reviewed General: Pleasant appearing male appears in no acute distress, accompanied by his son HEENT: Oropharynx is clear external moods are intact pupils equal round react, craniotomy incisions are currently dressed Pulmonary: Clear to auscultation Cardiovascular: Regular rhythm no murmurs gallops or GI: Soft nontender nondistended bowel sounds are present Extremities: No sinus clubbing or edema Psych: Appropriate affect Neuro: Cranial 2 through 12 intact, motor sensation intact throughout Skin: No skin lesion WBC 12.71 10^3/uL (3.80-9.50) H 03/15/18 05:40 RBC 4.32 10^6/uL (4.40-6.38) L 03/15/18 05:40 Hgb 13.8 g/dL (13.7-17.5) 03/15/18 05:40 Hct 40.2 % (40.0-51.0) 03/15/18 05:40 MCV 93.1 fL (81.5-99.8) 03/15/18 05:40 MCH 31.9 pg (27.9-34.1) 03/15/18 05:40 MCHC 34.3 g/dL (32.4-36.7) 03/15/18 05:40 RDW 12.2 % (11.5-15.2) 03/15/18 05:40 Plt Count 163 10^3/uL (150-400) 03/15/18 05:40 MPV 9.0 fL (8.7-11.7) 03/15/18 05:40 Neut % (Auto) 88.2 % (39.3-74.2) H 03/15/18 05:40 Lymph % (Auto) 3.6 % (15.0-45.0) L 03/15/18 05:40 Hardin % (Auto) 7.6 % (4.5-13.0) 03/15/18 05:40 Eos % (Auto) 0.1 % (0.6-7.6) L 03/15/18 05:40 Baso % (Auto) 0.1 % (0.3-1.7) L 03/15/18 05:40 Nucleat RBC Rel Count 0.0 % (0.0-0.2) 03/15/18 05:40 Absolute Neuts (auto) 11.21 10^3/uL (1.70-6.50) H 03/15/18 05:40 Absolute Lymphs (auto) 0.46 10^3/uL (1.00-3.00) L 03/15/18 05:40 Absolute Monos (auto) 0.97 10^3/uL (0.30-0.80) H 03/15/18 05:40 Absolute Eos (auto) 0.01 10^3/uL (0.03-0.40) L 03/15/18 05:40 Absolute Basos (auto) 0.01 10^3/uL (0.02-0.10) L 03/15/18 05:40 Absolute Nucleated RBC 0.00 10^3/uL (0-0.01) 03/15/18 05:40 Immature Gran % 0.4 % (0.0-1.1) 03/15/18 05:40 Immature Gran # 0.05 10^3/uL (0.00-0.10) 03/15/18 05:40 RBC/WBC/PLT Morphology TNP 03/15/18 05:40 Platelet Estimate TNP 03/15/18 05:40 PT 13.7 SEC (12.0-15.0) 03/12/18 03:04 INR 1.03 (0.83-1.16) 03/12/18 03:04 APTT 30.3 SEC (23.0-38.0) 03/12/18 03:04 Sodium 141 mEq/L (135-145) 03/15/18 05:40 Potassium 4.4 mEq/L (3.5-5.2) 03/15/18 05:40 Chloride 109 mEq/L (97-110) 03/15/18 05:40 Carbon Dioxide 24 mEq/l (22-31) 03/15/18 05:40 Anion Gap 8 mEq/L (6-14) 03/15/18 05:40 BUN 28 mg/dL (7-23) H 03/15/18 05:40 Creatinine 0.9 mg/dL (0.7-1.3) 03/15/18 05:40 Estimated GFR > 60 03/15/18 05:40 Glucose 107 mg/dL (70-100) H 03/15/18 05:40 POC Glucose 209 mg/dL (70-100) H 03/15/18 17:13 Calcium 8.5 mg/dL (8.5-10.4) 03/15/18 05:40 Total Bilirubin 1.1 mg/dL (0.1-1.4) 03/12/18 03:04 AST 30 IU/L (17-59) 03/12/18 03:04 ALT 26 IU/L (21-72) 03/12/18 03:04 Alkaline Phosphatase 57 IU/L (38-126) 03/12/18 03:04 POC Troponin I 0.01 ng/mL (0.00-0.08) 03/11/18 20:59 Total Protein 6.5 g/dL (6.3-8.2) 03/12/18 03:04 Albumin 3.9 g/dL (3.5-5.0) 03/12/18 03:04 Patient ABO/Rh O POSITIVE 03/14/18 14:40 Antibody Screen NEGATIVE 03/14/18 14:40 Assessment and plan: Delta is a 78-year-old male who was discovered to have a brain mass status post surgical resection. #1 brain mass: He status post craniotomy and surgical resection. From verbal report the concern is he has an underlying glioma specifically glioblastoma. His pathology is currently pending. I explained to him and his son the depending on the pathology results he likely will receive chemotherapy and radiation. The chemotherapy would be in the form of Temodar. I did discuss with him the prognostic implications of a grade 4 glioma. I also discussed with him that there are other prognostic markers that need to be obtained if that is the case including methylation status and IDH mutation status. I will have him follow-up in our clinic with Dr. Brett Acosta alongside a radiation oncologist Dr. Glen Chen. Feel free to contact me with any questions regarding his case in the interim.
[2018-03-16] MEDS: LATANOPROST 0.005% 2.5 ML OPHT DROPS LEFTEYE SCH (20:24)
[2018-03-17] MEDS: HYDROCODONE/APAP 5/325 TAB PO PRN ×2 (05:27→06:30)
[2018-03-17 05:36] LABS: PLATELET COUNT 161 10^3/uL (150-400)
[2018-03-17] MEDS: SENNOSIDES/DOCUSATE SODIUM TAB PO SCH (08:43)
[2018-03-17] MEDS: MULTIVITAMINS 1 EACH TAB PO SCH (08:43)
[2018-03-17] MEDS: DEXAMETHASONE 4 MG TAB PO SCH (08:43)
[2018-03-17] MEDS: levETIRAcetam 500 MG TAB PO SCH (08:43)
[2018-03-17] MEDS: TIMOLOL 0.5% 15 ML OPHT.BTL LEFTEYE SCH (08:44)
--- NOTE | 2018-03-17 08:50 | NEUSURGPN ---
Assessment/Plan: Assessment/Plan: Assessment: 78 yo male that is s/p left occipital craniotomy for tumor debulking POD #2 Plan: -s/o left occipital crani for tumor ID and debulking: Doing well overall and progressing with PT. Continued right sided peripheral field deficit. -MRI reviewed and shows good resection, there is one questionable area of residual but may be operative changes, will have to see on later MRI how this looks. No acute infarcts -Remove dressing and wash hair/incision with soap and water -PT/OT/ST ordered -Continue to taper steroids over 10 days -call with any questions or concerns -d/w Dr Cook -Ok to transfer to the floor -Dispo- recommending inpatient rehab, ok to go once bed available -Q4 hour neuro checks Subjective: Had headache this morning but now improved with [place]. Progressed with PT yesterday. Ready for rehab once able to dc. Objective: AAO x 3 AFVSS/PERRLA/EOMI no droop Visual field defect on the right TOWNSEND x 4/5/5 BUE/BLE = CDI- telfa in place Catheter Insertion Date: 03/14/18 - Physician Discussed Patient with : Joyce Neurosurgery Physical Exam - Vitals, I&O, Labs I and O 03/16/18 03/17/18 03/18/18 05:59 05:59 05:59 Intake Total 450 1080 Output Total 850 Balance -400 1080 Weight 72.7 kg Intake: Oral (ml) 450 1080 Output: Urine (ml) 850 Urinal 850 Other: Intake Quantity Yes Sufficient Number of Voids Toilet 2 2 Urinal 1 Number of Stools Toilet 1 Urinal 0 Vital Signs Temp Pulse Resp BP Pulse Ox 35.9 C L 71 16 163/91 H 95 03/17/18 08:00 03/17/18 08:00 03/17/18 08:00 03/17/18 08:00 03/17/18 08:00 Laboratory Results 03/17/18 05:19 03/15/18 05:40 ICD10 Worksheet Patient Problems: Problems Problem Status Onset Brain mass Acute Encephalopathy Acute Hypertension Acute
[2018-03-17] MEDS ORDERED: LISINOPRIL/HCTZ 10/12.5 MG 1 EA TAB PO SCH (09:00)
--- NOTE | 2018-03-17 12:44 | HOSPPROG ---
Hospitalist Progress Note Assessment/Plan: DIAGNOSES: * brain mass right occiput, resected on 03/14 via occipital craniotomy, stealth procedure -suspicious for GBM, path pending -very stable post op * vision and balance symptoms, decreased appetite with weight loss, coordination issues and dizziness are certainly related to the above * mild dehydration * chronic essential hypertension PLANS: * Continue high-dose steroid, taper per neurosurgery * Continue to hold aspirin from home med list; he does not really have a good indication for this * Non medicinal DVT prophylaxis due to brain lesions at this time, encourage frequent leg exercises and ambulation * Await pathology; oncology saw patient on 03/16, f/u planned with Dr. Acosta, Oncology, Dr. Chen, Rad-Onc * Continue PT OT to assess mobility and balance, recommending IP Rehab, placement pending, discussed case with CM today * Transfer to floor today per neurosurgery, continue Q4hr Neurochecks Subjective: Patient reports lack of interest in reading his newpaper this morning, denies visual changes Objective: Vital Signs Temp Pulse Resp BP Pulse Ox 35.9 C L 71 16 163/91 H 95 03/17/18 08:00 03/17/18 08:00 03/17/18 08:00 03/17/18 08:00 03/17/18 08:00 Laboratory Results 03/17/18 05:19 03/15/18 05:40 03/16/18 03/17/18 03/18/18 05:59 05:59 05:59 Intake Total 450 1080 Output Total 850 Balance -400 1080 PT 13.7 SEC (12.0-15.0) 03/12/18 03:04 INR 1.03 (0.83-1.16) 03/12/18 03:04 - Physical Exam Constitutional: no apparent distress Eyes: PERRL Ears, Nose, Mouth, Throat: moist mucous membranes Cardiovascular: regular rate and rhythym Respiratory: no respiratory distress Gastrointestinal: normoactive bowel sounds Skin: warm Musculoskeletal: full muscle strength Neurologic: AAOx3 Psychiatric: interacting appropriately ICD10 Worksheet Patient Problems: Problems Problem Status Onset Brain mass Acute Encephalopathy Acute Hypertension Acute
--- NOTE | 2018-03-17 13:38 | PDIAF ---
- Diagnosis Diagnosis: Brain Mass Code Status: Full Code - Medication Management Discharge Medications: electronically signed and located in the Home Medication List. - Orders Services needed: Registered Nurse, Physical Therapy, Occupational Therapy, Speech Language Pathologist - Follow Up Care Current Providers and Referrals: Clinton Adhikari MD [Primary Care Provider] -
--- NOTE | 2018-03-17 13:42 | PDDCSUM ---
Discharge Summary Discharge Summary: Date of Admission: 03/11/2018 Date of Discharge: 03/17/2018 Consults: Neurosurgery, Neurology, Oncology Procedures: Occipital craniotomy Followup: Oncology, Dr. Acosta, Radiation Oncology, Dr. Chen, Neurology, Dr. Adhikari Hospital Course Problem List: DIAGNOSES: * brain mass right occiput, resected on 03/14 via occipital craniotomy, stealth procedure -suspicious for GBM, path pending - stable post op * vision and balance symptoms, decreased appetite with weight loss, coordination issues and dizziness are certainly related to the above * mild dehydration * chronic essential hypertension PLANS: * Continue high-dose steroid, taper per neurosurgery * Await pathology; oncology saw patient on 03/16, f/u planned with Dr. Acosta, Oncology, Dr. Chen, Rad-Onc * Continue PT OT to assess mobility and balance, recommending IP Rehab, placement today Time spent on discharge was >35 minutes with >50% of time spent on patient education and counseling.
[2018-03-17 15:54] VITALS: BP 172/99
--- NOTE | 2018-03-17 16:51 | ASMTDCNOTE ---
Case Management Discharge Discharge Order Complete? Answers: Yes Patient to Obtain Answers: Other Notes: [facility] Inpatient Rehab Medications Transportation Arranged Answers: [facility] Transport will Pick (Date 03/17/2018 12:00 AM & Time) Case Management Transport Answers: Yes Notes: [facility] - [facility] Form Complete Faxed Final Orders Answers: Yes Notes: [facility] Inpatient rehab Agency/Facility Transfer Answers: Yes Notes: [facility] Inpatient Rehab Report Printed & Faxed to Receiving Agency Family Notified Answers: Yes Notes: Discharge Comments Notes: Patient is discharging today to [facility] Inpatient Rehab. Transport arranged with [facility]/stretcher for safety. PCS completed and left for [facility] along with the face sheet. [facility] has access to patient's medical record through [employer] for the discharge summaries. Nurse to nurse completed by Jesus [phone]. No further needs. Date Signed: 03/17/2018 04:51 PM Electronically Signed By:Katty Contreras LCSW
--- NOTE | 2018-03-17 16:53 | ASDISCHSUM ---
Discharge Information Plan Status:Inpatient Rehab Medically Cleared to Leave:03/16/2018 Discharge Date:03/17/2018 04:00 PM CM D/C Disposition:[facility] IP ADT D/C Disposition:[facility] IP Projected Discharge Date:03/17/2018 12:00 AM Transportation at D/C:ALS/BLS Discharge Delay Reason: Follow-Up Date:03/17/2018 12:00 AM Discharge Slot:2 - 12:01 pm - 18:00 pm Final Diagnosis:Brain mass Placement Information Patient Contact Information Contact Name:GETACHEW Relationship: [address] City:[place] Alternate Phone: [facility]/Zip Code:[place] [address] Email: Financial Information Financial Class:BCOP Primary Plan Desc: OUT OF STATE [facility] Primary Plan Number:[id number] Secondary Plan Desc:MEDICARE INPATIENT Secondary Plan Number:[id number] Assessment Information LACE LACE Length of stay for Answers: 4-6 days current admission Acuity / Level of Answers: Yes Care: Did the patient have an inpatient admission? Comorbidities - select Answers: Any tumor (including all that apply lymphoma or leukemia) Cerebrovascular disease (CVA, TIA, aneurysms, vasc ular dementia) Other Notes: HTN, glaucoma # of Emergency department Answers: 1-2 visits in the last 6 months Score: 12 Date Signed: 03/17/2018 04:51 PM Electronically Signed By:Katty Contreras LCSW [facility] Progress Note CM Note CM Note Notes: Reviewed chart. Pt admitted for worsening dizziness and a recent syncopal episode. MRI findings show possible brain mets; primary origin unclear at this time. History includes HTN, glaucoma, aneurysm, lower spine repair. Pt is and lives with his . Per MD notes, pt to be seen by Neurosurgery later today. Pt is tentatively scheduled for resection of a cranial mass on Wednesday03/14/[address] Cook. Discharge needs remain unclear at this time. CM will continue to follow. Discharge Plan: To be determined Date Signed: 03/12/2018 03:41 PM Electronically Signed By:Mary Louis RN [facility] Progress Note CM Note CM Note Notes: Patient had a brain mass and crani. Therapies all recommending In-pt Rehab. Date Signed: 03/15/2018 04:47 PM Electronically Signed By:Brandie Gomez LCSW [facility] CM Progress Note CM Note CM Note Notes: Left a message for Vanessa with inpatient rehab to see if they have finished their eval and have a disposition. PT/OT therapies are both recommending Inpatient rehab for the patient. CM will follow. Date Signed: 03/16/2018 01:50 PM Electronically Signed By:Katty Contreras LCSW Case Management Discharge Plan Note Case Management Discharge Discharge Order Complete? Answers: Yes Patient to Obtain Answers: Other Notes: [facility] Inpatient Rehab Medications Transportation Arranged Answers: [facility] Transport will Pick (Date 03/17/2018 12:00 AM & Time) Case Management Transport Answers: Yes Notes: [facility] - [facility] Form Complete Faxed Final Orders Answers: Yes Notes: [facility] Inpatient rehab Agency/Facility Transfer Answers: Yes Notes: [facility] Inpatient Rehab Report Printed & Faxed to Receiving Agency Family Notified Answers: Yes Notes: Discharge Comments Notes: Patient is discharging today to [facility] Inpatient Rehab. Transport arranged with [facility]/st[facility]cher for safety. PCS completed and left for [facility] along with the face sheet. [facility] has access to patient's medical record through [employer] for the discharge summaries. Nurse to nurse completed by Jesus [phone]. No further needs. Date Signed: 03/17/2018 04:51 PM Electronically Signed By:Katty Contreras LCSW Intervention Information
[2018-03-17] MEDS ORDERED: DEXAMETHASONE 4 MG TAB PO SCH (20:00)
[2018-03-19] MEDS ORDERED: DEXAMETHASONE 4 MG TAB PO SCH ×2 (20:00)
[2018-03-22] MEDS ORDERED: DEXAMETHASONE 4 MG TAB PO SCH (20:00)
[2018-03-25] MEDS ORDERED: DEXAMETHASONE 2 MG TAB PO SCH (20:00)
[2018-03-28] MEDS ORDERED: DEXAMETHASONE 2 MG TAB PO SCH (20:00)
[2018-03-31] MEDS ORDERED: DEXAMETHASONE 0.5 MG TAB PO SCH (20:00)
== END 2018-03-17 16:00 | DRG 27 ==
LOC: F2W 23:18 → F2N 03-14 17:18
PROVIDERS: ADMIT Family Medicine; ATTEND Family Medicine
DX: C71.4 Malignant neoplasm of occipital lobe (principal); E86.0 Dehydration; I10 Essential (primary) hypertension; H40.9 Unspecified glaucoma; I67.2 Cerebral atherosclerosis; G47.30 Sleep apnea, unspecified
CPT/HCPCS: 84484-ER; 88323-90; 88342; 92523-GN; 96374; 97112-GP; 97116-GP; 97161-GP; 97166-GO; 97530-GO; 97535-GO; A9585; C1713; G8987-GO-CK; G8988-GO-CI; J0690; J1100; J1580; J2250; J2270; J2405; J2550; J2704; J3010; Q9967

== ENCOUNTER 2018-03-17 14:09 | Inpatient (IN) | payer BC, OTHER ==
[2018-03-17] MEDS ORDERED: SILDENAFIL CITRATE 50 MG TAB PO PRN (17:23)
[2018-03-17] MEDS ORDERED: POLYETHYLENE GLYCOL 3350 17 GM PKT PO PRN (17:23)
[2018-03-17] MEDS ORDERED: MELATONIN 3 MG TAB PO PRN (17:23)
[2018-03-17] MEDS ORDERED: LORazepam 0.5 MG TAB PO PRN (17:23)
[2018-03-17] MEDS ORDERED: ONDANSETRON DISINTEGRATING 4 MG TAB PO PRN (17:25)
[2018-03-17] MEDS ORDERED: hydrALAZINE 10 MG TAB PO PRN (18:15)
[2018-03-17] MEDS: levETIRAcetam 500 MG TAB PO SCH (20:03)
--- NOTE | 2018-03-17 20:03 | GHP ---
POST ADMISSION PHYSICIAN EVALUATION AND REHABILITATION TREATMENT PLAN DATE OF ADMISSION: 03/17/2018 DATE OF EVALUATION: 03/17/2018. TIME OF EVALUATION: 1720 hours. REFERRING FACILITY: [facility]. IMPAIRMENT GROUP: 1.1. DATE OF ONSET: 03/11/2018. REFERRING PROVIDER: Corwin Ruth PA-C. CONSULTING PHYSICIANS: He was admitted to the Hospital Medicine service with Dr. Fortune attending. He had consultation with Neurosurgery, Dr. Cook; with Pulmonary/Critical Care physician, Dr. Torres; and with oncologist, Dr. Cast. REHABILITATION DIAGNOSIS: Debility status post craniotomy and resection of occipital tumor. ETIOLOGIC DIAGNOSIS: Left body involvement (right brain). DATE OF SURGERY: 03/14/2018. HISTORY OF PRESENT ILLNESS: This patient was admitted to [facility] on 03/11/2018, with visual disturbances times several months and weight loss. He had acute worsening of his symptoms. He fell x1. He had trouble walking, and he had intermittent double vision on the day of admission. Evaluation revealed brain masses in the left occipital lobe with suspicion of metastatic versus primary versus possible abscess on imaging. Subsequent evaluation included chest and abdominal CT to evaluate for a primary tumor which showed no evidence of a primary neoplasm or metastatic disease. Chest CT had findings consistent with coronary artery disease. Abdominal CT showed multilevel degenerative low thoracic and lumbar disk disease. Head and neck CT angiogram showed cerebrovascular atherosclerosis with moderate narrowing over the mid aspect of the right posterior cerebral artery but no complete occlusion, and atherosclerosis of the bilateral cavernous and supraclinoid internal carotid arteries. He was begun on high-dose IV dexamethasone. He had consultation with Neurosurgery. He underwent surgery on 03/14/2018, with excision of the occipital tumor. He did well postoperatively, but he continued to have vision and balance symptoms. He was participating in therapies and appropriate for inpatient rehabilitation. STUDIES AND LABS DURING HIS STAY: CBC initially was completely normal but on the day of discharge revealed mild anemia with a hemoglobin of 13 and a hematocrit of 37.4. He had an elevated white count of 12.89 with minimal left shift consistent with use of dexamethasone. Coagulation studies were normal. Serum chemistry most recently on 03/15/2018, revealed normal renal function, and electrolytes were consistent with mild dehydration with a BUN of 28 and a creatinine of 0.9. He had elevated blood sugars consistent with high-dose steroids. Liver functions were normal. PRECAUTIONS: He is a fall risk, and he has seizure precautions. ACTIVE COMORBIDITIES: He has no active tier 1, tier 2 or tier 3 comorbidities. PAST MEDICAL HISTORY: 1. Transient global amnesia with an overall normal MRI of the brain done in August of this year. 2. Mild mitral regurgitation seen on echocardiogram in August of this year. 3. Hypertension. 4. Glaucoma. 5. Erectile dysfunction. 6. Hard of hearing, more so in the left ear than the right ear. 7. 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 PAST SURGICAL HISTORY: He had repair of the aneurysm in the lower spine in 1994 , and he has had a left cataract extraction with lens placement. PRE-HOSPITAL MEDICATIONS: 1. Aspirin 81 mg p.o. daily. 2. Latanoprost 0.005%, 1 drop, left eye, at h.s. 3. Multivitamin 1 p.o. daily. 4. Sildenafil 50 mg to 100 mg p.o. daily p.r.n. 5. Timolol 0.5% 1 drop, left eye, daily. 6. Lisinopril/hydrochlorothiazide 20/25 1 p.o. daily. ADMISSION MEDICATIONS: 1. Aspirin 81 mg p.o. daily. 2. Dexamethasone on a taper beginning with 2 mg q.12 hours. 3. Dexamethasone 2 mg p.o. q.24 hours for 2 days starting 03/20/2018. 4. Latanoprost 0.005%, 1 drop, left eye, at h.s. 5. Levetiracetam 750 mg p.o. b.i.d. 6. Lisinopril/hydrochlorothiazide 01/07.5, 2 tablets p.o. daily. 7. Lorazepam 0.5 to 1 mg p.o. q.8 hours p.r.n. 8. Melatonin 3 to 6 mg p.o. q.h.s. p.r.n. 9. Multivitamin 1 p.o. daily. 10. Polyethylene glycol 17 g p.o. daily p.r.n. 11. Sildenafil 50 to 100 mg p.o. daily p.r.n. 12. Timolol 0.5% 1 drop, left eye, daily. ALLERGIES: There are no known drug allergies. PSYCHOSOCIAL HISTORY: He is . He lives with his . 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 He is a nonsmoker. He has approximately 1 beer a day frequently. He has been an active man with regular exercise and frequent travel. FAMILY HISTORY: His parents lived into old age, and both with coronary artery disease and advanced age. Father had a history of dementia. REVIEW OF SYSTEMS: NEURO: He continues to complain of a symptom of movement or spinning within his head. He thinks it may have to do with his inner ear, but it is not positional. It is somewhat improved when he wears his hearing aids. He does not have the sensation of the room spinning. He does not have associated nausea when he has the sensation. He is aware of reduced visual field on the right side. CONSTITUTIONAL: He has had weight loss, approximately 10 pounds over several months, and he has a reduced appetite. He denies fevers or chills. CARDIAC: He denies chest pain or palpitations. GI/ : He denies vomiting, constipation or diarrhea. He denies dysuria or urinary frequency and feels that he has normal voiding. DERMATOLOGIC: He denies skin rash or skin breakdown. MUSCULOSKELETAL: He denies joint pain or joint swelling. PSYCH: He is in good spirits, though he does report that he is accustomed to being in control of his situation and feels that he is now more dependent on others than he has been in the past. Otherwise, a 10-point review of systems is negative. PHYSICAL EXAM: VITAL SIGNS: Blood pressure upon arrival on the unit was 203/ 115 and 40 minutes later was 177/100, heart rate was 69, respiratory rate is 18 , oxygen saturation is 98% on room air. Temperature is 36.6 degrees centigrade. His weight is 72.7 kg for a body mass index of 23.0. GENERAL: This is a well-nourished, well-developed man, appears younger than his chronologic age, lying in bed, cooperative and in no acute distress. The room is darkened. HEENT: Extraocular movements are intact. Pupils are equal, round and reactive to light. Mucous membranes are moist. Dentition is in good condition. He has an uncrowded airway, Mallampati class 1. NECK: Supple. HEART: There is a regular rate and rhythm, with no murmurs, rubs or gallops. LUNGS: Clear to auscultation bilaterally. ABDOMEN: Soft, nontender, nondistended, with normoactive bowel sounds and no hepatosplenomegaly. EXTREMITIES: There is no cyanosis, clubbing or edema. Radial and dorsalis pedis pulses are 2+ bilaterally. NEUROLOGIC: He is alert and oriented x3. He is somewhat verbose and tangential. Cranial nerves 2-12 are grossly intact. There is no focal weakness. Sensation is intact to light touch. Visual story by confrontation are significantly reduced bilaterally, possibly more so on the right than the left. CURRENT LEVEL OF FUNCTION PER PRE-ADMISSION SCREEN: Regarding diet, feeding and swallowing, he was on a regular diet. He was independent with feeding and had no dysphagia. Dressing required standby assist for lower body. Toileting required standby assist for transfer and clothing management. He was continent of bowel and bladder. He was independent with bed mobility. Transfers required contact guard. He used a front-wheeled walker. Dynamic standing balance required [id number] assistance. Endurance was fair. He ambulated with a slow dion and a narrow base of support as far as 400 feet with a front-wheeled walker and contact guard and voice cues for visual scanning to the right. He ambulated 300 feet without a device and minimal assist for decreased balance and coordination. Communication was normal. Regarding cognition, he was found to have mild impairment in memory and problem- solving. He was considered to be a fall risk and to have decreased coordination of the left upper extremity. On today's exam, there are no significant changes from the preadmission screen. IMPRESSION: This is a previously healthy 78-year-old man who has had neurologic symptoms involving abnormal vision and balance for approximately 6 weeks. These worsened significantly, causing him to come to the hospital. There he was diagnosed with 2 left occipital peripheral enhancing masses. He had CT studies of his chest and abdomen, and no primary tumor was found. He was placed on high-dose IV Decadron for several days. He underwent surgery with removal of the tumor mass from the left occipital lobe. He came through surgery well, but he has visual and balance impairments as well as mild cognitive issues for which he will benefit from inpatient rehabilitation. His goal is to complete a rehabilitation stay and then return home with his family and supportive services. For a safe discharge he will need to achieve modified independence for ADLs and functional activities with the least restrictive device. He will need to have increased safety when negotiating the environment with increased attention to the right side without cues. He may require supervision for bathing pending progress. He will need to have insight into his deficits and be independent with compensatory strategies. It is likely he will require assistance for household management, shopping and meals. He will have therapy with PT, OT and CLAY PRESS OPERATOR for 60 minutes per day on 5-7 days of the week. His expected duration of stay is 5-7 days. It is anticipated that upon discharge he will continue to benefit from home health services including nursing, CLAY PRESS OPERATOR, OT and PT. In addition, he may benefit from a support group. PLAN: 1. Deficits to mobility and activities of daily living following excision of left occipital masses consistent with glioblastoma. PT and OT to optimize mobility and activities of daily living to the modified independent level. 2. Visual field deficits. He will have detailed testing for occupational therapy and may benefit from a neuroophthalmological referral after his discharge. 3. Mild impairment to cognition and memory. To be evaluated further by Speech and Language Pathology. 4. Hypertension with markedly elevated blood pressure upon arrival. This improved somewhat after he settled on the unit. Reviewing his vital signs during his hospitalization, he had occasional elevated blood pressures including a blood pressure of 179/95 on 03/14/2018. This was post surgery and was treated with IV nicardipine. Subsequently, he had lower blood pressures but increased blood pressure this morning and this afternoon while in the hospital. His lisinopril/hydrochlorothiazide combination had been held perioperatively and was restarted only this morning. Will give a single dose of hydralazine tonight and order 10 mg q.8 hours p.r.n. Systolic blood pressure greater than 160. Continue his lisinopril/hydrochlorothiazide tomorrow. Blood pressures will be monitored and medications adjusted as needed. It could be that the elevated blood pressure is partly due to dexamethasone. Though he denies any symptoms, will check a bladder scan to ensure that he does not have an overfull bladder which could be causing elevated blood pressure as well. 5. Subjective sensation of spinning or movement inside his head with no actual visual vertigo. There is also nausea, but the two are not temporally associated. Etiology is quite unclear. Query whether it has anything to do with his hearing loss. Doubt that the narrowing of the right posterior cerebral artery would contribute, though it is conceivable that he has some deficits to cerebellar function related to posterior circulation issues. Consider trial of meclizine. 6. Decreased appetite and weight loss. He will have a consultation with the dietitian. 7. Severe degenerative disk disease of the cervical spine with mild-to- moderate canal stenosis seen on imaging of the head and neck. Will observe whether there are any signs or symptoms of pain, weakness or impaired balancing reflexes that might be related to this. 8. Glaucoma. Continue his eyedrops. 9. Postoperative anemia is mild. Will recheck if he shows any signs or symptoms consistent with anemia. 10. Leukocytosis due to dexamethasone with no indication to have followup testing. He shows no signs or symptoms of infection. 11. Relative dehydration seen on labs. With his history of brain mass, recent surgery and use of diuretic, will recheck a BMP in the morning to ensure that there is no hyponatremia and to assess hydration state. 12. Unclear indication for aspirin, though he certainly has cerebral and cardiovascular disease. He has not had a stroke or myocardial infarction, so he is not needing secondary prophylaxis. Will hold aspirin while he is on dexamethasone due to increased risk for GI bleeding. Will discuss further regarding indications for aspirin during his stay. 13. Insomnia. He received a dose of lorazepam 2 days ago in the afternoon of 1 mg. Given his cognitive imbalance issues lorazepam is likely relatively contraindicated; will not continue it while he is on the inpatient Rehabilitation Unit. Melatonin has been prescribed but does not appear to have been used. It can be used if he has difficulty sleeping. He reports that he has been sleeping well though his sleep has been interrupted by nursing cares while in the Intensive Care Unit. With fewer interruptions on the Rehabilitation Unit, it is likely that he will have better sleep. 14. Prophylaxis. He has already ambulated as far as 400 feet, so he is likely relatively low risk. Will choose to continue mobilization as a DVT prophylaxis. Will not initiate pharmacologic prophylaxis at this time. FOLLOW-UP. He will see Dr. Acosta of Oncology and Dr. Chen of Radiation Oncology after his discharge. Primary care provider is Dr. Clinton Adhikari. /[id number]/MODL MTDD
[2018-03-17] MEDS: LATANOPROST 0.005% 2.5 ML OPHT DROPS LEFTEYE SCH (20:04)
[2018-03-17] MEDS: DEXAMETHASONE 4 MG TAB PO SCH (20:04)
[2018-03-18] MEDS ORDERED: ASPIRIN 81 MG CHEWABLE TAB PO SCH (09:00)
[2018-03-18] MEDS ORDERED: LISINOPRIL/HCTZ 10/12.5 MG 1 EA TAB PO SCH (09:00)
[2018-03-18] MEDS: DEXAMETHASONE 4 MG TAB PO SCH ×2 (09:21→20:12)
[2018-03-18] MEDS: levETIRAcetam 500 MG TAB PO SCH ×2 (09:21→20:11)
[2018-03-18] MEDS: MULTIVITAMINS 1 EACH TAB PO SCH (09:22)
[2018-03-18] MEDS: TIMOLOL 0.5% 15 ML OPHT.BTL LEFTEYE SCH (09:31)
--- NOTE | 2018-03-18 09:55 | SOAPPROG ---
SOAP Progress Note Assessment/Plan: Assessment: Deficits to mobility and activities of daily living following excision of left occipital masses consistent with glioblastoma. PT and OT to optimize mobility and activities of daily living to the modified independent level. Visual field deficits. He will have detailed testing for occupational therapy and may benefit from a neuroophthalmological referral after his discharge. Mild impairment to cognition and memory. To be evaluated further by Speech and Language Pathology. Hypertension with markedly elevated blood pressure upon arrival. * Responded to a single dose of hydralazine evening of 03/17/2018. 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 Discontinue lisinopril/hydrochlorothiazide 20/ combination 03/18/2018 and initiate lisinopril alone at 40 mg q.day starting 03/19/2018. * Continue p.r.n. hydralazine 10 mg q.8 hours for systolic blood pressure greater than 160. Hyponatremia. Discontinue hydrochlorothiazide and continue higher dose lisinopril. Repeat BMP on 03/20/2018. AVILA, with migrainous features. He denies history of migraines. Likely exacerbated by poor sleep. Continue acetaminophen. Insomnia. Initiate trazodone 50 mg at bedtime starting 03/18/2018. Continue lorazepam head 0.5 mg q.6 hours p.r.n. for anxiety; may also help with sleep. Subjective sensation of spinning or movement inside his head with no actual visual vertigo. There is also nausea, but the two are not temporally associated. Etiology is quite unclear. Doubt that the narrowing of the right posterior cerebral artery would contribute, though it is conceivable that he has some deficits to cerebellar function related to posterior circulation issues. Consider trial of meclizine. Decreased appetite and weight loss. He will have a consultation with the dietitian. Chronic/stable conditions: Severe degenerative disk disease of the cervical spine with [id number] canal stenosis seen on imaging of the head and neck. Will observe whether there are any signs or symptoms of pain, weakness or impaired balancing reflexes that might be related to this. Glaucoma. Continue his eyedrops. Postoperative anemia is mild. Will recheck if he shows any signs or symptoms consistent with anemia. Leukocytosis due to dexamethasone with no indication to have followup testing. He shows no signs or symptoms of infection. Relative dehydration seen on labs. Resolved on BMP 03/18/2018. Unclear indication for aspirin, though he certainly has cerebral and cardiovascular disease. He has not had a stroke or myocardial infarction, so he is not needing secondary prophylaxis. Will hold aspirin while he is on dexamethasone due to increased risk for GI bleeding. Will discuss further regarding indications for aspirin during his stay. Prophylaxis. He has already ambulated as far as 400 feet, so he is likely relatively low risk. Will choose to continue mobilization as a DVT prophylaxis. Will not initiate pharmacologic prophylaxis at this time. FOLLOW-UP. He will see Dr. Acosta of Oncology and Dr. Chen of Radiation Oncology after his discharge. Primary care provider is Dr. Clinton Adhikari. 03/18/18 12:10 Subjective: Had anxiety this morning. Had claustrophobia overnight knowing that he could not get out of bed without assistance. It took him several hours to attain sleep last night. He was hesitant to call the nurses. Complains of left eye pain which is throbbing. Has photophobia and nausea. Objective: Vital Signs Temp Pulse Resp BP Pulse Ox 36.5 C 70 16 132/84 H 94 03/17/18 20:00 03/18/18 06:41 03/18/18 06:41 03/18/18 09:21 03/18/18 06:41 03/17/18 03/18/18 03/19/18 05:59 05:59 05:59 Output Total 1225 Balance -1225 Physical Exam - Physical Exam General Appearance: WD/WN, alert, no apparent distress Respiratory: No accessory muscle use, No decreased breath sounds Cardiac/Chest: No edema Skin: normal color, warm/dry Neuro/Psych: no motor/sensory deficits, alert, normal mood/affect, oriented x 3 , other (Arises from seated with standby assist per OT. Demonstrates good balance with front wheeled walker.) ICD10 Worksheet Patient Problems: Problems Problem Status Onset Brain mass Acute Encephalopathy Acute Hypertension Acute
[2018-03-18] MEDS ORDERED: LORazepam 0.5 MG TAB PO PRN (11:30)
[2018-03-18] MEDS: ACETAMINOPHEN 325 MG TAB PO PRN ×2 (13:36→20:12)
[2018-03-18] MEDS: traZODone 50 MG TAB PO SCH (20:11)
[2018-03-18] MEDS: LATANOPROST 0.005% 2.5 ML OPHT DROPS LEFTEYE SCH (20:13)
[2018-03-19] MEDS ORDERED: LISINOPRIL 40 MG TAB PO SCH (09:00)
[2018-03-19] MEDS: DEXAMETHASONE 4 MG TAB PO SCH ×2 (09:21→20:02)
[2018-03-19] MEDS: levETIRAcetam 500 MG TAB PO SCH ×2 (09:22→20:02)
[2018-03-19] MEDS: MULTIVITAMINS 1 EACH TAB PO SCH (09:30)
[2018-03-19] MEDS: TIMOLOL 0.5% 15 ML OPHT.BTL LEFTEYE SCH (09:31)
[2018-03-19] MEDS: LISINOPRIL 20 MG TAB PO SCH (14:31)
--- NOTE | 2018-03-19 14:56 | SOAPPROG ---
SOAP Progress Note Assessment/Plan: Assessment: Deficits to mobility and activities of daily living following excision of left occipital masses consistent with glioblastoma. PT and OT to optimize mobility and activities of daily living to the modified independent level. Visual field deficits. He will have detailed testing for occupational therapy and may benefit from a neuroophthalmological referral after his discharge. Mild impairment to cognition and memory. To be evaluated further by Speech and Language Pathology. Hypertension with markedly elevated blood pressure upon arrival. * Responded to a single dose of hydralazine evening of 03/17/2018. Continue p.r.n. hydralazine 10 mg q.8 hours for systolic blood pressure greater than 160. 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 Discontinue lisinopril/hydrochlorothiazide combination 03/18/2018 and initiate lisinopril alone at 40 mg q.day starting 03/19/2018. * Lisinopril held for low blood pressure 03/19/2018. Add parameters to hold lisinopril for systolic less than 120, and reduced dose to 20 mg q.day. * Continue to monitor. Hyponatremia. Discontinue hydrochlorothiazide and continue higher dose lisinopril. Repeat BMP on 03/20/2018. AVILA, with migrainous features. He denies history of migraines. Likely exacerbated by poor sleep. Continue acetaminophen. * Resolved 03/19/2018 after sleeping well overnight. Insomnia. Initiated trazodone 50 mg at bedtime starting 03/18/2018. Continue lorazepam head 0.5 mg q.6 hours p.r.n. for anxiety; may also help with sleep. Subjective sensation of spinning or movement inside his head with no actual visual vertigo. There is also nausea, but the two are not temporally associated. Etiology is quite unclear. Doubt that the narrowing of the right posterior cerebral artery would contribute, though it is conceivable that he has some deficits to cerebellar function related to posterior circulation issues. Consider trial of meclizine. Decreased appetite and weight loss. He will have a consultation with the dietitian. Visual hallucinations. 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 Chronic/stable conditions: Severe degenerative disk disease of the cervical spine with [id number] canal stenosis seen on imaging of the head and neck. Will observe whether there are any signs or symptoms of pain, weakness or impaired balancing reflexes that might be related to this. Glaucoma. Continue his eyedrops. Postoperative anemia is mild. Will recheck if he shows any signs or symptoms consistent with anemia. Leukocytosis due to dexamethasone with no indication to have followup testing. He shows no signs or symptoms of infection. Relative dehydration seen on labs. Resolved on BMP 03/18/2018. Unclear indication for aspirin, though he certainly has cerebral and cardiovascular disease. He has not had a stroke or myocardial infarction, so he is not needing secondary prophylaxis. Will hold aspirin while he is on dexamethasone due to increased risk for GI bleeding. Will discuss further regarding indications for aspirin during his stay. Prophylaxis. He has already ambulated as far as 400 feet, so he is likely relatively low risk. Will choose to continue mobilization as a DVT prophylaxis. Will not initiate pharmacologic prophylaxis at this time. FOLLOW-UP. He will see Dr. Acosta of Oncology and Dr. Chen of Radiation Oncology after his discharge. Primary care provider is Dr. Clinton Adhikari. 03/19/18 14:52 Subjective: Reports that he slept well and then ate a large breakfast. Subsequently he felt hot had malaise and not participate in showering today nurse found a low blood pressure. He felt better once he was in bed. Blood pressure improved but remained somewhat low. His throbbing right eye pain has resolve and his nausea has resolved. Reports seeing things that are not there in his right visual field including a bare and a [place] woman. Objective: Vital Signs Temp Pulse Resp BP Pulse Ox 36.4 C 90 18 90/62 L 97 03/19/18 08:00 03/19/18 13:30 03/19/18 13:30 03/19/18 14:32 03/19/18 08:00 Laboratory Results 03/18/18 06:15 03/18/18 03/19/18 03/20/18 05:59 05:59 05:59 Intake Total 400 Output Total 1225 1450 Balance -1225 -1050 Physical Exam - Physical Exam General Appearance: WD/WN, alert, no apparent distress Respiratory: normal breath sounds, No crackles, No rhonchi, No wheezing Cardiac/Chest: regular rate, rhythm, No edema, No JVD, No diastolic murmur, No systolic murmur Skin: normal color, warm/dry Neuro/Psych: alert, normal mood/affect, oriented x 3 ICD10 Worksheet Patient Problems: Problems Problem Status Onset Brain mass Acute Encephalopathy Acute Hypertension Acute
[2018-03-19] MEDS: LATANOPROST 0.005% 2.5 ML OPHT DROPS LEFTEYE SCH (20:03)
[2018-03-19] MEDS: traZODone 50 MG TAB PO SCH (20:03)
[2018-03-20] MEDS: ACETAMINOPHEN 325 MG TAB PO PRN (08:17)
[2018-03-20] MEDS: levETIRAcetam 500 MG TAB PO SCH ×2 (09:27→20:57)
[2018-03-20] MEDS: MULTIVITAMINS 1 EACH TAB PO SCH (09:27)
[2018-03-20] MEDS: TIMOLOL 0.5% 15 ML OPHT.BTL LEFTEYE SCH (09:29)
[2018-03-20] MEDS: LISINOPRIL 20 MG TAB PO SCH (09:36)
--- NOTE | 2018-03-20 12:04 | SOAPPROG ---
SOAP Progress Note Assessment/Plan: Assessment: Deficits to mobility and activities of daily living following excision of left occipital masses consistent with glioblastoma. * Independent with bed mobility. Ambulating 150 ft or greater with cues and supervision. * Continue PT and OT to optimize mobility and activities of daily living to the modified independent level. Visual field deficits. He will have detailed testing for occupational therapy and may benefit from a neuroophthalmological referral after his discharge. * He is exhibiting visual release hallucinations. He does not find these distressing. Mild impairment to cognition and memory. To be evaluated further by Speech and Language Pathology. Hypertension with markedly elevated blood pressure upon arrival. * Responded to a single dose of hydralazine evening of 03/17/2018. Continue p.r.n. hydralazine 10 mg q.8 hours for systolic blood pressure greater than 160. 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 Discontinued lisinopril/hydrochlorothiazide combination 03/18/2018 and initiate lisinopril alone at 40 mg q.day starting 03/19/2018. * Lisinopril held for low blood pressure 03/19/2018. Add parameters to hold lisinopril for systolic less than 120, and reduced dose to 20 mg q.day. Blood pressure has been running low and he has not received antihypertensives yesterday or today 03/20/2018. * Continue to monitor. Hyponatremia. Discontinue hydrochlorothiazide and continue higher dose lisinopril. Improved on BMP on 03/20/2018, with sodium increased from 132 to to 133. . AVILA, with migrainous features. He denies history of migraines. Likely exacerbated by poor sleep. Continue acetaminophen. * Resolved 03/19/2018 after sleeping well overnight. Insomnia. Initiated trazodone 50 mg at bedtime starting 03/18/2018. Continue lorazepam head 0.5 mg q.6 hours p.r.n. for anxiety; may also help with sleep, but he has not used it. Subjective sensation of spinning or movement inside his head with no actual visual vertigo. There is also nausea, but the two are not temporally associated. Etiology is quite unclear. Doubt that the narrowing of the right posterior cerebral artery would contribute, though it is conceivable that he has some deficits to cerebellar function related to posterior circulation issues. Consider trial of meclizine. Decreased appetite and weight loss. He will have a consultation with the dietitian. Emotional lability. He is doing appropriate life review and is aware of the life-threatening nature of his illness. Counseling per SHIP MANAGER. Chronic/stable conditions: Severe degenerative disk disease of the cervical spine with [id number] canal stenosis seen on imaging of the head and neck. Will observe whether there are any signs or symptoms of pain, weakness or impaired balancing reflexes that might be related to this. Glaucoma. Continue his eyedrops. Postoperative anemia is mild. Will recheck if he shows any signs or symptoms consistent with anemia. Leukocytosis due to dexamethasone with no indication to have followup testing. He shows no signs or symptoms of infection. Relative dehydration seen on labs. Resolved on [facility] 03/18/2018. Unclear indication for aspirin, though he certainly has cerebral and cardiovascular disease. He has not had a stroke or myocardial infarction, so he is not needing secondary prophylaxis. Will hold aspirin while he is on dexamethasone due to increased risk for GI bleeding. Will discuss further regarding indications for aspirin during his stay. Prophylaxis. He has already ambulated as far as 400 feet, so he is likely relatively low risk. Will choose to continue mobilization as a DVT prophylaxis. Will not initiate pharmacologic prophylaxis at this time. FOLLOW-UP. He will see Dr. Acosta of Oncology and Dr. Chen of Radiation Oncology after his discharge. Primary care provider is Dr. Clinton Adhikari. 03/20/18 12:04 Subjective: Continues to see people who he knows are not there on the right side of his field of vision. Has emotional lability. Reports that he is doing considerable life for flexion. No pain, fevers, chills, cough, dyspnea. Objective: Vital Signs Temp Pulse Resp BP Pulse Ox 36.6 C 94 16 96/58 L 95 03/20/18 08:00 03/20/18 08:00 03/20/18 08:00 03/20/18 09:36 03/20/18 08:00 Laboratory Results 03/20/18 06:15 03/19/18 03/20/18 03/21/18 05:59 05:59 05:59 Intake Total 400 2290 240 Output Total 1450 1450 350 Balance -1050 840 -110 Physical Exam - Physical Exam General Appearance: WD/WN, alert, no apparent distress Respiratory: No respiratory distress, No accessory muscle use Skin: normal color, warm/dry Neuro/Psych: alert, normal mood/affect, oriented x 3 ICD10 Worksheet Patient Problems: Problems Problem Status Onset Brain mass Acute Encephalopathy Acute Hypertension Acute
--- NOTE | 2018-03-20 12:21 | PDOREHIP ---
Admission [facility] - Admission - 3 Day Assessment Period Admission Date/Day 1: 03/17/18 Day 2: 03/18/18 Day 3: 03/19/18 - Active Diagnoses Comorbidities and Co-existing Conditions at Admission: 44203. None of the Above - Skin Conditions Unhealed Pressure Ulcer (1 or more/Stage 1 or >)-Admission: 0. No # Stage 1 Pressure Ulcers-Admission: 0 # Stage 2 Pressure Ulcers-Admission: 0 # Stage 3 Pressure Ulcers-Admission: 0 # Stage 4 Pressure Ulcers-Admission: 0 # Unstageable Pressure Ulcers (Non-remove Dress)-Admission: 0 # Unstageable Pressure Ulcers (Slough/Eschar)-Admission: 0 # Unstageable Pressure Ulcers (Deep Tissue Injury)-Admission: 0
[2018-03-20] MEDS: DEXAMETHASONE 4 MG TAB PO SCH (20:57)
[2018-03-20] MEDS: LATANOPROST 0.005% 2.5 ML OPHT DROPS LEFTEYE SCH (20:57)
[2018-03-20] MEDS: traZODone 50 MG TAB PO SCH (20:58)
[2018-03-21] MEDS: ACETAMINOPHEN 325 MG TAB PO PRN ×2 (03:31→18:14)
[2018-03-21] MEDS: levETIRAcetam 500 MG TAB PO SCH ×2 (08:32→20:36)
[2018-03-21] MEDS: MULTIVITAMINS 1 EACH TAB PO SCH (08:33)
[2018-03-21] MEDS: TIMOLOL 0.5% 15 ML OPHT.BTL LEFTEYE SCH (08:35)
[2018-03-21] MEDS: LISINOPRIL 20 MG TAB PO SCH (08:41)
--- NOTE | 2018-03-21 11:59 | SOAPPROG ---
SOAP Progress Note Assessment/Plan: Assessment: Deficits to mobility and activities of daily living following excision of left occipital masses consistent with glioblastoma. * Initial functional independence measure is 78 on 03/21/2018. Independent with bed mobility. Ambulated 150 ft with standby assist using a front wheeled walker and has advanced to tracking pole. Climbed and descended 9 steps with 2 rails and standby assist. Supervision level for ADLs with front wheeled walker. * Continue PT and OT to optimize mobility and activities of daily living to the modified independent level. Visual field deficits. He will have detailed testing for occupational therapy and may benefit from a neuroophthalmological referral after his discharge. * He is exhibiting visual release hallucinations. He does not find these distressing. Mild impairment to cognition and memory. * Scored 17/30 on the Logan cognitive Assessment on 03/19/2018. Has decreased attention to detail and decreased memory. Severity is mild to moderate. * Continue Speech and Language Pathology. Hypertension with markedly elevated blood pressure upon arrival. * Responded to a single dose of hydralazine evening of 03/17/2018. Continue p.r.n. hydralazine 10 mg q.8 hours for systolic blood pressure greater than 160. 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 Discontinued lisinopril/hydrochlorothiazide combination 03/18/2018 and initiate lisinopril alone at 40 mg q.day starting 03/19/2018. * Lisinopril held for low blood pressure 03/19/2018. Added parameters to hold lisinopril for systolic less than 120, and reduced dose to 20 mg q.day. Hyponatremia. Discontinue hydrochlorothiazide and continue higher dose lisinopril. Improved on BMP on 03/20/2018, with sodium increased from 132 to to 133. . AVILA, with migrainous features. He denies history of migraines. Likely exacerbated by poor sleep. Continue acetaminophen. * Resolved 03/19/2018 after sleeping well overnight. Insomnia. Initiated trazodone 50 mg at bedtime starting 03/18/2018. Continue lorazepam head 0.5 mg q.6 hours p.r.n. for anxiety; may also help with sleep, but he has not used it. Subjective sensation of spinning or movement inside his head with no actual visual vertigo. There is also nausea, but the two are not temporally associated. Etiology is quite unclear. Doubt that the narrowing of the right posterior cerebral artery would contribute, though it is conceivable that he has some deficits to cerebellar function related to posterior circulation issues. Consider trial of meclizine. Decreased appetite and weight loss. He will have a consultation with the dietitian. Emotional lability. He is doing appropriate life review and is aware of the life-threatening nature of his illness. Counseling per MUSIC LIBRARIAN. Chronic/stable conditions: Severe degenerative disk disease of the cervical spine with [id number] canal stenosis seen on imaging of the head and neck. Will observe whether there are any signs or symptoms of pain, weakness or impaired balancing reflexes that might be related to this. Glaucoma. Continue his eyedrops. Postoperative anemia is mild. Will recheck if he shows any signs or symptoms consistent with anemia. Leukocytosis due to dexamethasone with no indication to have followup testing. He shows no signs or symptoms of infection. Relative dehydration seen on labs. Resolved on [facility] 03/18/2018. Unclear indication for aspirin, though he certainly has cerebral and cardiovascular disease. He has not had a stroke or myocardial infarction, so he is not needing secondary prophylaxis. Will hold aspirin while he is on dexamethasone due to increased risk for GI bleeding. Will discuss further regarding indications for aspirin during his stay. Prophylaxis. He has already ambulated as far as 400 feet, so he is likely relatively low risk. Will choose to continue mobilization as a DVT prophylaxis. Will not initiate pharmacologic prophylaxis at this time. DISPOSITION: Attended staffing, 15 min. Discussed with case management, dietitian, nursing, PT, OT, MAINTENANCE WORKER HOUSE TRAILER. Plans to discharge home with his and other family member to support. Likely date of discharge is 1226 or 1227. He will have home PT, OT and MAINTENANCE WORKER HOUSE TRAILER, and will have an evaluation by Neuro- Ophthalmology. FOLLOW-UP. He will see Dr. Acosta of Oncology and Dr. Chen of Radiation Oncology after his discharge. Primary care provider is Dr. Clinton Adhikari. 03/21/18 12:03 Subjective: Continues to have visual release hallucinations on the left side of people and animals. He is not distressed by them. He is learning to attend to the right visual field. Otherwise without complaints. Not in pain. Sleeping well. Objective: Vital Signs Temp Pulse Resp BP Pulse Ox 36.4 C 92 16 132/84 H 96 12/24/18 08:00 03/21/18 08:00 03/21/18 08:00 03/21/18 08:41 03/21/18 08:00 Laboratory Results 03/20/18 06:15 03/20/18 03/21/18 03/22/18 05:59 05:59 05:59 Intake Total 2290 1840 Output Total 1450 1075 Balance 840 765 - Time Spent With Patient Time Spent With Patient: Greater than 35 min floor time today, including more than 50% of time in coordination of care during staffing meeting, and counseling patient. Physical Exam - Physical Exam General Appearance: WD/WN, alert, no apparent distress Respiratory: No respiratory distress, No accessory muscle use Skin: normal color, warm/dry Neuro/Psych: alert, normal mood/affect, oriented x 3, other (Normal gait with trekking pole in the right hand) ICD10 Worksheet Patient Problems: Problems Problem Status Onset Brain mass Acute Encephalopathy Acute Hypertension Acute
[2018-03-21] MEDS ORDERED: TUBERCULIN (PPD) 5 TU/0.1 ML SYRINGE ID ONE (14:46)
[2018-03-21] MEDS: LATANOPROST 0.005% 2.5 ML OPHT DROPS LEFTEYE SCH (20:36)
[2018-03-21] MEDS: traZODone 50 MG TAB PO SCH (20:37)
[2018-03-22] MEDS: TIMOLOL 0.5% 15 ML OPHT.BTL LEFTEYE SCH (08:49)
[2018-03-22] MEDS: MULTIVITAMINS 1 EACH TAB PO SCH (08:49)
[2018-03-22] MEDS: levETIRAcetam 500 MG TAB PO SCH ×2 (08:49→20:21)
[2018-03-22] MEDS: LISINOPRIL 20 MG TAB PO SCH (08:54)
--- NOTE | 2018-03-22 12:52 | SOAPPROG ---
SOAP Progress Note Assessment/Plan: Assessment: Deficits to mobility and activities of daily living following excision of left occipital masses consistent with glioblastoma. * Initial functional independence measure is 78 on 03/21/2018. Independent with bed mobility. Ambulated 150 ft with standby assist using a front wheeled walker and has advanced to trekking pole. Climbed and descended 9 steps with 2 rails and standby assist. Supervision level for ADLs with front wheeled walker. * Continue PT and OT to optimize mobility and activities of daily living to the modified independent level. Visual field deficits. He will have detailed testing by occupational therapy and may benefit from a neuroophthalmological referral after his discharge. * He is exhibiting visual release hallucinations. He does not find these distressing. Mild impairment to cognition and memory. * Scored 17/30 on the Logan cognitive Assessment on 03/19/2018. Has decreased attention to detail and decreased memory. Severity is mild to moderate. * Continue Speech and Language Pathology. Hypertension with markedly elevated blood pressure upon arrival. * Responded to a single dose of hydralazine evening of 03/17/2018. Continue p.r.n. hydralazine 10 mg q.8 hours for systolic blood pressure greater than 160. 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 Discontinued lisinopril/hydrochlorothiazide combination 03/18/2018 and initiated lisinopril alone at 40 mg q.day starting 03/19/2018. * Lisinopril held for low blood pressure 03/19/2018. Added parameters to hold lisinopril for systolic less than 120, and reduced dose to 20 mg q.day. Hyponatremia. Discontinue hydrochlorothiazide and continue higher dose lisinopril. Improved on BMP on 03/20/2018, with sodium increased from 132 to to 133. . AVILA, with migrainous features. He denies history of migraines. Likely exacerbated by poor sleep. Continue acetaminophen. * Resolved 03/19/2018 after sleeping well overnight. Insomnia. Initiated trazodone 50 mg at bedtime starting 03/18/2018. Continue lorazepam head 0.5 mg q.6 hours p.r.n. for anxiety; may also help with sleep, but he has not used it. Subjective sensation of spinning or movement inside his head with no actual visual vertigo. There is also nausea, but the two are not temporally associated. Etiology is quite unclear. Doubt that the narrowing of the right posterior cerebral artery would contribute, though it is conceivable that he has some deficits to cerebellar function related to posterior circulation issues. Consider trial of meclizine. Decreased appetite and weight loss. He will have a consultation with the dietitian. Emotional lability. He is doing appropriate life review and is aware of the life-threatening nature of his illness. Counseling per STAFF TRAINER. Chronic/stable conditions: Severe degenerative disk disease of the cervical spine with [id number]-[id number]-lghepolc canal stenosis seen on imaging of the head and neck. Will observe whether there are any signs or symptoms of pain, weakness or impaired balancing reflexes that might be related to this. Glaucoma. Continue his eyedrops. Postoperative anemia is mild. Will recheck if he shows any signs or symptoms consistent with anemia. Leukocytosis due to dexamethasone with no indication to have followup testing. He shows no signs or symptoms of infection. Relative dehydration seen on labs. Resolved on [facility] 03/18/2018. Unclear indication for aspirin, though he certainly has cerebral and cardiovascular disease. He has not had a stroke or myocardial infarction, so he is not needing secondary prophylaxis. Will hold aspirin while he is on dexamethasone due to increased risk for GI bleeding. Will discuss further regarding indications for aspirin during his stay. Prophylaxis. He has already ambulated as far as 400 feet, so he is likely relatively low risk. Will choose to continue mobilization as a DVT prophylaxis. Will not initiate pharmacologic prophylaxis at this time. DISPOSITION: Planning to discharge to [facility] feels with his . He will continue therapies there. Tentative discharge date of 03/24 or 03/25/2018. FOLLOW-UP. He will see Dr. Acosta of Oncology and Dr. Chen of Radiation Oncology after his discharge. Primary care provider is Dr. Clinton Adhikari. 03/22/18 12:49 Subjective: No complaints. Sleeping well. Not in pain. Good appetite. Continues to see people and animals on the right side of his story vision. Reports that 1 of the occupational therapist suggested that he slowly turn his gaze to the right and "stair down" the people or animals. He has found that when he does this they go away. Objective: Vital Signs Temp Pulse Resp BP Pulse Ox 36.7 C 86 18 125/70 H 95 03/21/18 18:22 03/22/18 08:00 03/22/18 08:00 03/22/18 08:54 03/22/18 08:00 Laboratory Results 03/20/18 06:15 03/21/18 03/22/18 03/23/18 05:59 05:59 05:59 Intake Total 1840 1800 Output Total 4043 2676 Balance 765 -25 Physical Exam - Physical Exam General Appearance: WD/WN, alert, no apparent distress Respiratory: No respiratory distress, No accessory muscle use Skin: normal color, warm/dry Neuro/Psych: alert, normal mood/affect, oriented x 3 ICD10 Worksheet Patient Problems: Problems Problem Status Onset Brain mass Acute Encephalopathy Acute Hypertension Acute
[2018-03-22] MEDS: traZODone 50 MG TAB PO SCH (20:21)
[2018-03-22] MEDS: LATANOPROST 0.005% 2.5 ML OPHT DROPS LEFTEYE SCH (20:23)
[2018-03-23] MEDS: ACETAMINOPHEN 325 MG TAB PO PRN (05:57)
[2018-03-23] MEDS: MULTIVITAMINS 1 EACH TAB PO SCH (08:21)
[2018-03-23] MEDS: TIMOLOL 0.5% 15 ML OPHT.BTL LEFTEYE SCH (08:21)
[2018-03-23] MEDS: LISINOPRIL 20 MG TAB PO SCH (08:21)
[2018-03-23] MEDS: levETIRAcetam 500 MG TAB PO SCH ×2 (08:21→20:31)
--- NOTE | 2018-03-23 10:51 | SOAPPROG ---
SOAP Progress Note Assessment/Plan: Assessment: Deficits to mobility and activities of daily living following excision of left occipital masses consistent with glioblastoma. * Initial functional independence measure is 78 on 03/21/2018. Independent with bed mobility. Ambulated 150 ft with standby assist using a front wheeled walker and has advanced to trekking pole. Climbed and descended 9 steps with 2 rails and standby assist. Supervision level for ADLs with front wheeled walker. * Continue PT and OT to optimize mobility and activities of daily living to the modified independent level. Visual field deficits. He will have detailed testing by occupational therapy and may benefit from a neuroophthalmological referral after his discharge. * He is exhibiting visual release hallucinations. He does not find these distressing. Mild impairment to cognition and memory. * Scored 17/30 on the Logan cognitive Assessment on 03/19/2018. Has decreased attention to detail and decreased memory. Severity is mild to moderate. * Continue Speech and Language Pathology. Hypertension with markedly elevated blood pressure upon arrival. * Responded to a single dose of hydralazine evening of 03/17/2018. Continue p.r.n. hydralazine 10 mg q.8 hours for systolic blood pressure greater than 160. 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 Discontinued lisinopril/hydrochlorothiazide combination 03/18/2018 and initiated lisinopril alone at 40 mg q.day starting 03/19/2018. * Lisinopril held for low blood pressure 03/19/2018. Added parameters to hold lisinopril for systolic less than 120, and reduced dose to 20 mg q.day. Hyponatremia. Discontinue hydrochlorothiazide and continue higher dose lisinopril. Improved on BMP on 03/20/2018, with sodium increased from 132 to to 133. . AVILA, with migrainous features. He denies history of migraines. Likely exacerbated by poor sleep. Continue acetaminophen. * Resolved 03/19/2018 after sleeping well overnight. Insomnia. Initiated trazodone 50 mg at bedtime starting 03/18/2018. Continue lorazepam head 0.5 mg q.6 hours p.r.n. for anxiety; may also help with sleep, but he has not used it. Subjective sensation of spinning or movement inside his head with no actual visual vertigo. There is also nausea, but the two are not temporally associated. Etiology is quite unclear. Doubt that the narrowing of the right posterior cerebral artery would contribute, though it is conceivable that he has some deficits to cerebellar function related to posterior circulation issues. Consider trial of meclizine. Decreased appetite and weight loss. He will have a consultation with the dietitian. Emotional lability. He is doing appropriate life review and is aware of the life-threatening nature of his illness. Counseling per WEBMETHODS ARCHITECT. Chronic/stable conditions: Severe degenerative disk disease of the cervical spine with [id number] canal stenosis seen on imaging of the head and neck. Will observe whether there are any signs or symptoms of pain, weakness or impaired balancing reflexes that might be related to this. Glaucoma. Continue his eyedrops. Postoperative anemia is mild. Will recheck if he shows any signs or symptoms consistent with anemia. Leukocytosis due to dexamethasone with no indication to have followup testing. He shows no signs or symptoms of infection. Relative dehydration seen on labs. Resolved on [facility] 03/18/2018. Unclear indication for aspirin, though he certainly has cerebral and cardiovascular disease. He has not had a stroke or myocardial infarction, so he is not needing secondary prophylaxis. Will hold aspirin while he is on dexamethasone due to increased risk for GI bleeding. Will discuss further regarding indications for aspirin during his stay. Prophylaxis. He has already ambulated as far as 400 feet, so he is likely relatively low risk. Will choose to continue mobilization as a DVT prophylaxis. Will not initiate pharmacologic prophylaxis at this time. DISPOSITION: Planning to discharge to [facility] Living in room feels with his . He will continue therapies there. Discharge date 03/24/2018. FOLLOW-UP. He will see Dr. Acosta of Oncology and Dr. Chen of Radiation Oncology after his discharge. Primary care provider is Dr. Clinton Adhikari. 03/23/18 10:49 Subjective: No complaints. Sleeping well. Not in pain. Has advanced ambulating with trekking pole and not needing much assistance. Objective: Vital Signs Temp Pulse Resp BP Pulse Ox 36.6 C 74 15 132/81 H 96 03/23/18 06:18 03/23/18 06:18 03/23/18 06:18 03/23/18 08:21 03/23/18 06:18 Laboratory Results 03/20/18 06:15 03/22/18 03/23/18 03/24/18 05:59 05:59 05:59 Intake Total 1800 650 Output Total 1502 870 300 Balance -25 -300 -300 Physical Exam - Physical Exam General Appearance: WD/WN, alert, no apparent distress Respiratory: No respiratory distress, No accessory muscle use Skin: normal color, warm/dry, other (Incision healing well) Neuro/Psych: alert, normal mood/affect, oriented x 3 ICD10 Worksheet Patient Problems: Problems Problem Status Onset Brain mass Acute Encephalopathy Acute Hypertension Acute
[2018-03-23] MEDS: traZODone 50 MG TAB PO SCH (20:31)
[2018-03-23] MEDS: LATANOPROST 0.005% 2.5 ML OPHT DROPS LEFTEYE SCH (20:31)
[2018-03-24] MEDS: levETIRAcetam 500 MG TAB PO SCH (08:49)
[2018-03-24] MEDS: LISINOPRIL 20 MG TAB PO SCH (08:50)
[2018-03-24] MEDS: TIMOLOL 0.5% 15 ML OPHT.BTL LEFTEYE SCH (08:51)
[2018-03-24] MEDS: MULTIVITAMINS 1 EACH TAB PO SCH (08:51)
[2018-03-24 08:52] VITALS: BP 110/72
--- NOTE | 2018-03-24 15:47 | GDS ---
ADMISSION DIAGNOSES: Debility, status post craniotomy and excision of right occipital glioblastoma. DISCHARGE DIAGNOSIS: Debility, status post craniotomy and excision of right occipital glioblastoma. OTHER DISCHARGE DIAGNOSES: 1. Visual release hallucinations in the left visual field. 2. Mild impairment to cognition and memory. 3. Hypertension. 4. Hyponatremia. 5. Insomnia. COMPLICATIONS: There were none. CONSULTATIONS: There were none. PROCEDURES: There were none. HISTORY AND HOSPITAL COURSE: This patient was admitted from [facility]. He had presented there on 03/11/2018, with visual disturbances for several months and weight loss. He had acute worsening and a fall and difficulty walking and he had intermittent double vision, so he came to the Emergency Department. There he was diagnosed with a brain mass in the right occipital region. He had surgery on 03/14/2018, with a craniotomy and excision of the mass. Hospital course was subsequently uncomplicated and he came to inpatient rehabilitation on 03/17/2018. He did well in rehabilitation. By the day of discharge he had achieved independence with bed mobility, modified independence with transfers using a trekking pole and he had ambulated 350 feet with modified independence using the trekking pole. He climbed and descended 12 steps with 1 rail and the trekking pole and modified independence. He required cues for safety with upper and lower body dressing, but otherwise was independent. He required cues and supervision and standby assist for bathing using a handheld shower hose. Transfers were done with standby assist. He improved regarding cognition, but still had deficits. A Geneva Cognitive Assessment was administered on 2017, and he scored 17/30 with significant errors with clock drawing and delayed recall. He was also noted to have ongoing deficits in memory, executive skills and attention/speed of processing. He had visual field deficits from his occipital craniotomy and he had visual release hallucinations in which he would see animals and people on the left of his visual field. He did not find these distressing and he benefitted from strategies for occupational therapy to decrease these hallucinations. He developed hyponatremia during his stay. Sodium was 132 on 03/18/2018. The etiology was considered likely due to SIADH following craniotomy and treatment with diuretic. He was on lisinopril/hydrochlorothiazide when he was admitted from the hospital. Hydrochlorothiazide was discontinued and 2 days later on 03/20/2018, his sodium was improving to 133. He subsequently was hypotensive due to reduced oral intake. As his oral intake improved he became hypertensive and lisinopril was resumed at 20 mg daily. Subsequently, he had good blood pressure control. On the day of discharge, blood pressure is 110/ 72. He had insomnia which responded well to trazodone 50 mg at bedtime. DISCHARGE PLAN: DISPOSITION: [facility] in [place]. CONDITION: Good. ACTIVITY: Ad steph though he continues to require cues and supervision for safety with certain activities of daily living as detailed above. DIET: Regular. ALLERGIES: There were no new allergies during his stay and he has no known drug allergies. MEDICATIONS UPON DISCHARGE: 1. Acetaminophen 650 mg p.o. q.4 hours p.r.n. 2. Aspirin 81 mg p.o. daily. 3. Latanoprost 1 drop left eye at bedtime. 4. Levetiracetam 750 mg p.o. twice daily to continue until followup with Neurosurgery on 03/31/2018. 5. Lisinopril 20 mg p.o. daily. 6. Multivitamin 1 p.o. daily. 7. Sildenafil 50-100 mg p.o. daily p.r.n. 8. Timolol 1 drop left eye daily. 9. Trazodone 50 mg p.o. at bedtime. ISSUES TO BE ADDRESSED AT FOLLOW UP: 1. Glioblastoma. He will see oncologist, Dr. Brett Acosta on 04/04/2018 and medical oncologist, Dr. Glen Chen on 04/04/2018. 2. Status post craniotomy. He will follow up with neurosurgeon, Dr. Demetrio Cook on 03/31/2018. 3. Functional status with need for supervision cues with activities of daily living as well as cognitive impairment. He will continue PT, OT, and ASSEMBLER CHASSIS at his new facility. 4. Hyponatremia was resolving. Unless he becomes symptomatic there is no need for repeat laboratory testing. Copy requested to: Pennie Perez [facility] /[id number]/MODL MTDD
== END 2018-03-24 13:59 | DRG 949 ==
LOC: BREH 16:44
PROVIDERS: ADMIT Internal Medicine; ATTEND Internal Medicine
DX: Z48.811 Encounter for surgical aftercare following surgery on the nervous system (principal); G31.84 Mild cognitive impairment of uncertain or unknown etiology; H54.7 Unspecified visual loss; I25.10 Atherosclerotic heart disease of native coronary artery without angina pectoris; M51.36 Other intervertebral disc degeneration, lumbar region; M51.24 Other intervertebral disc displacement, thoracic region; I10 Essential (primary) hypertension; H40.9 Unspecified glaucoma; D64.9 Anemia, unspecified; G47.00 Insomnia, unspecified; I34.0 Nonrheumatic mitral (valve) insufficiency; E87.1 Hypo-osmolality and hyponatremia
CPT/HCPCS: 92507-GN; 92523-GN; 92610-GN; 97110-GP; 97112-GP; 97116-GP; 97161-GP; 97166-GO; 97530-GO; 97530-GP; 97535-GO; G0515-GO

== ENCOUNTER → 2018-06-24 | Outpatient (CLI) | payer BC, OTHER ==
[~2018-06-24] MED LIST changes: +GADOBUTROL 10 ML VIAL IVP ONE; -IOPAMIDOL (ISOVUE-300) 100 ML BTL ONE
== END ==
LOC: FIMAGING 10:48
PROVIDERS: ATTEND Internal Medicine Hematology & Oncology
DX: Z08 Encounter for follow-up examination after completed treatment for malignant neoplasm (principal); C71.9 Malignant neoplasm of brain, unspecified; G93.89 Other specified disorders of brain; R90.82 White matter disease, unspecified
CPT/HCPCS: 82565-PO; A9585

== ENCOUNTER → 2018-07-08 | Outpatient (CLI) | payer BC | LOC: FIMAGING 12:58 | PROVIDERS: ATTEND Internal Medicine Hematology & Oncology | DX: R22.41 Localized swelling, mass and lump, right lower limb (principal); C71.9 Malignant neoplasm of brain, unspecified ==

== ENCOUNTER 2018-07-14 12:29 | Inpatient (IN) | payer BC, OTHER ==
--- NOTE | 2018-07-14 13:31 | PDGENHP ---
History and Physical - Chief Complaint Confusion - History of Present Illness Patient is a 78-year-old male with past medical history of glioblastoma multiform status post craniotomy with resection in February of 2018 along with chemoradiation which he completed in May who was brought in from [facility] with concerns of worsening confusion. All history obtained by the and daughter as patient is unable to provide history by himself. Further report and through chart reviewed appears the patient has had worsening confusion over the last 3 weeks. Originally it was thought to be due to a decrease in his Decadron. He was on Decadron 4 mg twice daily that few weeks ago was decreased to daily and his confusion seemed to worsen. He saw Neurology who increased the Decadron back to twice daily. He then saw his oncologist to has tapered and stopped his Decadron. Family does not think that changing the Decadron dose really had any impact on his mental status. He has been much more confused than normal, eating differently, and developed an upper extremity tremor which is new over the last few weeks. They have also noticed that he has developed a shuffling gait which is not new. They have not however noticed any new fevers, chills, cough, diarrhea or localizing symptoms suggestive of an infection. He recently saw his primary care physician who obtained labs to rule out infection and check his electrolytes which were within normal limits. History Information - Allergies/Home Medication List Allergies/Adverse Reactions: No Known Allergies Allergy (Verified 09/13/17 10:39) Home Medications: Multivitamins [Multivitamin (*)] 1 each PO DAILY 09/13/17 [Last Taken 07/14/18] Lisinopril/Hydrochlorothiazide [Zestoretic 20-25 mg Tablet] 1 each PO DAILY [Last Taken 07/14/18] clonazePAM [Klonopin (*)] 0.5 mg PO BID 07/14/18 [Last Taken 07/14/18] I have personally reviewed and updated: family history, medical history, social history, surgical history - Past Medical History Additional medical history: HTN, glaucoma, hard of hearing with use of hearing aids. 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 Left cataract extraction with lens placement. Craniotomy in February 2018 - Family History Positive for: non-pertinent Additional family history: Mother and father-lived to 90s. Both with CAD at advanced age. Father with history of dementia. No known cancers in the family. - Social History Smoking Status: Never smoked Alcohol Use: Other (one beer a day) Additional social history: Patient is and lives with his . Son lives in [place] and supportive. Patient without need for assistive devices. Cor-full. Review of Systems Review of Systems: ROS: 10pt was reviewed & negative except for what was stated in HPI & below Physical Exam Physical Exam: Temp Pulse Resp BP Pulse Ox 36.6 C 95 18 127/84 H 98 07/14/18 13:15 07/14/18 13:15 07/14/18 13:15 07/14/18 13:15 07/14/18 13:15 Constitutional: no apparent distress Eyes: PERRL Ears, Nose, Mouth, Throat: moist mucous membranes Cardiovascular: regular rate and rhythym Respiratory: no respiratory distress Gastrointestinal: normoactive bowel sounds Genitourinary: no bladder fullness Skin: warm, normal color Musculoskeletal: full muscle strength Neurologic: other (Oriented to self, knew he was in [place], knew he was in [place] [facility] could not tell me the year, thought it was May knew the president was.) Psychiatric: interacting appropriately, encephalopathic Lymph, Heme, Immunologic: no cervical LAD Assessment & Plan Assessment: 78-year-old male with glioblastoma multiform admitted with worsening confusion and encephalopathy Encephalopathy- I suspect this is related to his malignancy. Cannot rule out infection or metabolic encephalopathy. He takes literally no medications aside from Zestoretic and a multivitamin along with Klonopin. I reviewed his outpatient chart as he is new to me. 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 Adhikari and Michael in the past. Glioblastoma multiform- lesion noted in his left occipital. Status post resection in February of 2018 along with chemoradiation which he completed in May of 2018. He follows with Dr. Brett juarez -onc consulted. Debility- patient was become notably weaker over the last weeks to months. Likely related to malignancy and decreased activity. I have consulted Physical therapy and Occupational therapy to work with the patient and assess his ability to perform his ADLs. Ultimately he may need placement in a higher level of care than what can be provided at home. Hypertension- patient is on Zestoretic normally. Will hold this until labs have been obtained in case he has electrolyte abnormalities. Blood pressure is currently within normal limits. Will add p.r.n. Hydralazine for systolic over 170. PPX- SCDs,lovenox Fluids- Po lytes- pending Nutrition- regular Cor- DNR Disp- obs for encephalopathy
[2018-07-14] MEDS ORDERED: ONDANSETRON 4 MG/2 ML VIAL IVP PRN (13:55)
[2018-07-14] MEDS ORDERED: ONDANSETRON DISINTEGRATING 4 MG TAB PO PRN (13:55)
--- NOTE | 2018-07-14 15:33 | ASMTCMCOM ---
CM Note CM Note Notes: Patient admitted for increasing confusion and debility. He is s/p resection of glioblastoma in 03/15 and chemoradiation 06/14. He has been home with his since then. He is open with [facility] palliative team. They wonder if he may need a higher level of care. 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 Case Management will follow. Date Signed: 07/14/2018 03:33 PM Electronically Signed By:Belen Bob RN
[2018-07-14 16:27] LABS: PLATELET COUNT 119 10^3/uL (150-400)
[2018-07-14] MEDS ORDERED: GADOBUTROL 10 ML VIAL IVP ONE (17:01)
[2018-07-14] MEDS: LORazepam 2 MG/ML INJ IVP PRN (17:04)
[2018-07-14] MEDS: levETIRAcetam 500MG/NACL 100 ML IV SCH (18:17)
[2018-07-15 05:34] LABS: PLATELET COUNT 126 10^3/uL (150-400)
[2018-07-15] MEDS: levETIRAcetam 500MG/NACL 100 ML IV SCH (09:12)
[2018-07-15] MEDS: ENOXAPARIN 40 MG/0.4 ML SYR SC SCH (09:12)
[2018-07-15] MEDS: ACETAMINOPHEN 325 MG TAB PO PRN (09:26)
[2018-07-15] MEDS ORDERED: hydrALAZINE 20 MG/ML VIAL IVP PRN (09:41)
--- NOTE | 2018-07-15 10:03 | NEUROPROG ---
Assessment: [id number] - Neurology Consult: - CC: Worsening confusion in setting of Brain Tumor - HPI: 07/15/18: Pt had resection of left occipital glioblastoma multiforme in February 2018 as well as chemo and radiation which he completed in May 2018. His brother noted after completing radiation therapy in May his cognition had begun to worsen. For the last 3 weeks pts reported he has had worsening confusion. Pts family also reported a new shuffling gait but no incontinence issues. Pt admitted to [facility] on 07/14/18. Brain MRI wwo showed mild developing hydrocephalus which could explain his symptoms. There was also some concern his confusion may be due to subclinical seizures as his confusion improved after getting ativan. Due to concern for possible subclinical seizures he was placed Keppra 500 mg bid and EEG ordered. I agree with plan to consult oncology. I would recommend neurosurgery consultation to evaluate his new hydrocephalus. - PMHx: HTN, glaucoma, hearing loss, GBM with resection , aneurysm of spine 1994, cataract - SHx: no tobacco FHx: CAD, dementia - ROS: Pt denied acute fever, total vision loss, active severe chest pain, respiratory failure, total body severe rash, total bowel/bladder incontinence, psychosis, active seizures, or active bleeding - O: VS reviewed General: Alert Eyes: Fundoscopic exam not able to visualize optic disks CV: Heart RRR, no murmur, no carotid bruit Lungs: Clear to auscultation bilaterally, no rhonchi or rales Neuro: - Mental: . Oriented x person/place but not date . concentration appears normal . speech fluency/comprehension normal . memory appears reduced . fund of knowledge appear intact - Cranial Nerves: . II: PERRL, VFFTC . III/IV/: EOMI, no nystagmus, normal smooth pursuits, no Ptosis . V: facial sensation intact to LT . VII: face symmetric to eye closure and smile . VIII: hearing intact to conversation . IX/X: uvula raises symmetrically . XI: SCM 5/5 B/L strength . XII: tongue protrudes midline w/nl strength - Motor: . Tone: normal tone in all 4 extremity . Strength: no pronator drift, strength 5/5 throughout (B/L delt, bic, tri, hand computer hardware engineer, hf/he, df/pf) - Reflexes: B/L bic 2/4 - Sensory: all 4 extremity intact to light touch - Coord: no coordination problems noted - Gait: deferred - Labs: 07/14/18- CBC Plt 119, CHem BUN 40H Anion gap 5L - Rads: 07/04/18- Brain MRI wwo: Resection site in left occipital lobe is table. The patient is slowly developing mild communicating hydrocephalus. (I personally visualized the images on 07/15/18) - Assessment: 1. 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 Increasing confusion 3. Mild Communicating Hydrocephalus 4. Possible Subclinical seizures - Plan: - Begin Keppra 500 mg bid to cover chance seizures are causing some of the worsening confusion - EEG - Consult neurosurgery to evaluate hydrocephalus reported on brain MRI, this can also cause confusion - Agree with plan to consult oncology - Pt can f/u with his outpatient neurologist, Dr. Adhikari, 1-6 weeks after hospital discharge Objective: Vital Signs Temp Pulse Resp BP Pulse Ox 36.4 C 95 16 144/96 H 94 07/15/18 08:29 07/15/18 08:30 07/15/18 08:29 07/15/18 08:30 07/15/18 08:29 Laboratory Results 07/15/18 04:36 07/15/18 04:36 07/14/18 07/15/18 07/16/18 05:59 05:59 05:59 Intake Total 150 Output Total 300 Balance -150 Allergies/Adverse Reactions: No Known Allergies Allergy (Verified 09/13/17 10:39)
[2018-07-15] MEDS: TIMOLOL 0.5% 15 ML OPHT.BTL LEFTEYE SCH (11:59)
--- NOTE | 2018-07-15 13:02 | CPEEG ---
[f rep st] ELECTROENCEPHALOGRAM INPATIENT EEG DATE OF STUDY: 07/15/2018 DATE OF INTERPRETATION: July 15, 2018 This is an EEG performed to assess for any seizure activity. I do not visualize any seizure activity throughout the recording. IMPRESSION: Overall, I do not visualize any seizure activity throughout the EEG which was performed for 30 minutes. /[id number]/MODL
--- NOTE | 2018-07-15 14:30 | HOSPPROG ---
Hospitalist Progress Note Assessment/Plan: 78-year-old male with glioblastoma multiform admitted with worsening confusion and encephalopathy Encephalopathy- I suspect this is related to his malignancy. Labs reviewed and no suggestion of infection or electrolyte driven encephalopathy. MRI showing mild communicating hydrocephalus which may be the cause of his symptoms. I discussed the case with Oncology who feels that this may be due to his steroid taper as well. Neurology has been consulted who has performed a EEG and does not see any obvious epileptiform activity. 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 Status post resection in February of 2018 along with chemoradiation which he completed in May of 2018. He follows with Dr. Brett juarez -onc consulted. Debility- patient was become notably weaker over the last weeks to months. Likely related to malignancy and decreased activity. I have consulted Physical therapy and Occupational therapy to work with the patient and assess his ability to perform his ADLs. Ultimately he may need placement in a higher level of care than what can be provided at home. 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 Will hold this until labs have been obtained in case he has electrolyte abnormalities. Blood pressure is currently within normal limits. Will add p.r.n. Hydralazine for systolic over 170. PPX- SCDs,lovenox Fluids- Po lytes- pending Nutrition- regular Cor- DNR Disp- inpatient for further evaluation of encephalopathy and confusion Subjective: Complains of a frontal headache. Objective: Vital Signs Temp Pulse Resp BP Pulse Ox 36.4 C 88 16 119/95 H 93 07/15/18 12:11 07/15/18 12:11 07/15/18 12:11 07/15/18 12:11 07/15/18 12:11 Laboratory Results 07/15/18 04:36 07/15/18 04:36 07/14/18 07/15/18 07/16/18 05:59 05:59 05:59 Intake Total 150 Output Total 300 Balance -150 - Physical Exam Constitutional: no apparent distress, appears nourished, uncomfortable Eyes: anicteric sclera Ears, Nose, Mouth, Throat: moist mucous membranes, hearing normal Cardiovascular: regular rate and rhythym, no murmur, rub, or gallop Respiratory: no respiratory distress, no rales or rhonchi, clear to auscultation Gastrointestinal: normoactive bowel sounds, soft, non-tender abdomen, no palpable masses Genitourinary: no bladder fullness, no bladder tenderness Skin: warm, normal color Musculoskeletal: generalized weakness Neurologic: AAOx3 Psychiatric: interacting appropriately Lymph, Heme, Immunologic: no cervical LAD ICD10 Worksheet Patient Problems: Problems Problem Status Onset Brain mass Acute Encephalopathy Acute Hypertension Acute
--- NOTE | 2018-07-15 15:47 | NEUSURGPN ---
Assessment/Plan: 78 yo male with recent craniotomy for resection of GBM in in Feb 2018. Finished chemo/radiation by May 27. Patient has been confused for the past 2- 3 weeks as well as a shuffling gait. No headaches. MRI brain reviewed. Mild communicating hydrocephalus. MRI brain not convincing for hydrocephalus so unsure if this is the cause of his shuffling gait and confusion. Could consider an LP for a large volume spinal tap to see if symptoms improve. Could also consider a psych eval. Dr. Cook to discuss further with patient and family tomorrow. Full consult note dictated. Discussed with Dr. Cook. Subjective: No current headache, nausea, or vomiting. Objective: Awake. Alert. PERRL. EOMI Facial expression symmetrical Tongue deviates to the right with protrusion Muscle strength full - Physician Discussed Patient with : [facility] Neurosurgery Physical Exam - Vitals, I&O, Labs I and O 07/14/18 07/15/18 07/16/18 05:59 05:59 05:59 Intake Total 150 Output Total 300 Balance -150 Weight 79.5 kg Intake: Oral (ml) 150 Output: Urine (ml) 300 Toilet 300 Other: Number of Voids Toilet 3 Vital Signs Temp Pulse Resp BP Pulse Ox 36.6 C 106 H 16 130/88 H 95 07/15/18 15:04 07/15/18 15:04 07/15/18 15:04 07/15/18 15:04 07/15/18 15:04 Laboratory Results 07/15/18 04:36 07/15/18 04:36 ICD10 Worksheet Patient Problems: Problems Problem Status Onset Brain mass Acute Encephalopathy Acute Hypertension Acute
--- NOTE | 2018-07-15 16:33 | GCON ---
[f rep st] CONSULTATION DATE OF CONSULTATION: 07/15/2018 HISTORY OF PRESENT ILLNESS: The patient is a 78-year-old male who presented to the hospital due to confusion and shuffling gait. He is a previous patient of Dr. Encinas who underwent a left occipital craniotomy for resection of a glioblastoma multiforme on March 24, 2018. He underwent radiation and chemotherapy treatments, which the states were completed on May 27. The patient's noted that the patient's cognition started to worsen approximately 3 weeks ago. He has been confused and wandering throughout the home. She has also noticed that he has developed a shuffling gait. He was on Decadron for a short period at the end of May or beginning of June; however, she did not notice a change in his cognition when this was started or when it was discontinued. She did notice that some of his confusion improved after receiving Ativan. He has not been complaining of a headache, nausea, or vomiting. PAST MEDICAL HISTORY: Hypertension, glaucoma, hearing loss, glioblastoma multiforme. PAST SURGICAL HISTORY: Craniotomy for resection of brain mass in February of 2018. SOCIAL HISTORY: He denies tobacco use. FAMILY HISTORY: No pertinent neurosurgical family history. ALLERGIES: No known drug allergies. HOME MEDICATION: Latanoprost eye drops, clonazepam, Viagra, multivitamin, lisinopril/hydrochlorothiazide, trazodone, timolol. REVIEW OF SYSTEMS: Negative, except for what is mentioned in the HPI. PHYSICAL EXAM: GENERAL: The patient was seen and examined, appears to be in no apparent distress. Mood and affect are appropriate. Alert. VITAL SIGNS: Blood pressure 130/88, heart rate 106, respiration rate is 16, breathing 95% on room air, temperature is 36.6. NEUROLOGIC: Cranial nerves II-XII intact. Extraocular movements are intact. Pupils equal and reactive. Facial expression is symmetrical. Tongue deviates to the right with protrusion. Hearing is grossly intact. Speech is fluent without dysarthria. Follows commands without difficulty. Muscle strength is well preserved in his upper and lower extremities at a 5/5. RESULTS: White count 5.08, hemoglobin 14.7, hematocrit 44.6, platelet count 126. Sodium 139, potassium 4.2, chloride 107, bicarb 27, BUN 29, creatinine 1.1. Urinalysis negative. MRI of the brain: Mild communicating hydrocephalus. The operative bed is stable. ASSESSMENT AND PLAN: In summary, the patient is a 78-year-old male with history of craniotomy for resection of glioblastoma multiforme in February 2018 , by Dr. Cook with now confusion and shuffling gait for the past 3 weeks. Neurology is currently following and has started Keppra twice a day and ordered an EEG. The EEG was negative for any seizure activity. His MRI of the brain demonstrates mild hydrocephalus. Dr. Cook has reviewed the MRI and it is not too impressive and so it is unclear if this is the cause of the patient's current symptoms of confusion and shuffling gait. Could consider a lumbar puncture for a large spinal tap to see if his symptoms improve or would also perhaps recommend a psychiatric evaluation. Dr. Cook will discuss in more detail tomorrow with the patient and his . Treatment plan discussed with Dr. Cook. /[id number]/MODL MTDD
--- NOTE | 2018-07-15 16:38 | ASMTCMCOM ---
CM Note CM Note Notes: Pt reviewed in rounds. Pt continues to have Pain management issues, & elevated B/p. CM requested PT/OT consult. CM available for needs. PLAN: TBD Date Signed: 07/15/2018 04:38 PM Electronically Signed By:Aby Reddy
[2018-07-15] MEDS: DEXAMETHASONE 4 MG TAB PO SCH ×2 (17:09→21:52)
--- NOTE | 2018-07-15 18:08 | GCON ---
[f rep st] CONSULTATION ONCOLOGY CONSULTATION NOTE DATE OF CONSULTATION: 07/15/2018 REASON FOR CONSULTATION: Glioblastoma multiforme. HISTORY OF PRESENT ILLNESS: The patient is a pleasant 78-year-old gentleman who is followed by my pa rtner, Dr. Brett Acosta. The patient was diagnosed with a left occipital lobe glioblastoma multiform e in February 2018. He presented with 2 peripherally enhancing lesions in the left occipital lobe. He was seen by Dr. Demetrio Cook and underwent a left occipital craniotomy on March 14, 2018. He h ad a gross total resection at that time. 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 The patient was treated with adjuvant temozolomide and radiation, given April 18, 2018 through 2018. He did well with his adjuvant treatment. He has recently been tapered off dexamethasone. His reports approximately 3 weeks of increasing confusion, which have been dramatically worse over the past 1 week. The patient has had no observed seizure activity. He was admitted to [facility] yesterday for further management. An MRI of the brain was performed yesterday afternoon, which revealed no evidence of disease progress ion. There is mild communicating hydrocephalus present. The patient has been evaluated by Neurosurgery. His hydrocephalus is felt unlikely to be the cause o f his confusion. Of note, when he was given Ativan for his MRI his symptoms improved transiently, [place] ggesting the possibility that low-grade seizure activity may be playing a role in his confusion. He has been seen by Neurology and has been started on Keppra. An EEG done earlier today shows no obviou s seizure activity. When seen this afternoon, his is at the bedside. PAST MEDICAL HISTORY: 1. Recent diagnosis of glioblastoma multiforme, as outlined above. 2. Hypertension. 3. History of spinal aneurysm. PAST SURGICAL HISTORY: Left occipital craniotomy, February 2018. SOCIAL HISTORY: The patient is . He lives locally in [place]. 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 He drinks a beer each evening. He is a nonsmoker. FAMILY MEDICAL HISTORY: Negative for malignancy. REVIEW OF SYSTEMS: Difficult to obtain. Patient denies headache or visual change at the current chantel e. Denies nausea, vomiting, or abdominal pain. He has had some intermittent dizziness. He denies a ny at the present time. PHYSICAL EXAM: GENERAL: The patient is oriented to name only. He is unable to state where he is, f inally stating that he is in a "resort." He states the year as 1939. He does know his name and his 's name. He is unable to recall the names of any of his physicians. He is unable to relay any o f the details of his diagnosis. EYES: Pupils are equal. Sclerae nonicteric. HEART: Regular witho ut murmur. LUNGS: Clear bilaterally. ABDOMEN: Soft, nontender, nondistended. NEURO: The patient grossly has normal muscle strength in the upper and lower extremities and can move all 4 extremities without difficulty. His speech is fluent. IMAGING: MRI results as outlined above. LABORATORY DATA: CBC from today, white count 5.08, hemoglobin 14.7, hematocrit 44.6, MCV 96.5, plate let count 126,000, absolute neutrophil count 3720. Sodium 139, potassium 4.2, chloride 107, bicarb 2 7, BUN 29, creatinine 1.1, total bilirubin 0.7, calcium 9.0. Liver function tests unremarkable. IMPRESSION: 1. Left occipital glioblastoma multiforme, status post gross total resection and adjuvant Temodar an d radiation. 2. Increasing confusion. 3. Possible mild communicating hydrocephalus. The patient is a pleasant 78-year-old gentleman with a recently diagnosed glioblastoma multiforme, wh o had completed initial therapy. The patient has had increasing confusion over the past 3 weeks that has become somewhat worse over the past 1 week. He was tapered off steroids at that time. I think it is reasonable to put him back on dexamethasone to see if re-initiation of steroids results in some improvement in his symptoms. I have started him on dexamethasone 4 mg three times daily for now. I f his symptoms improve, we could consider maintaining him on steroids with a more gradual taper. If his symptoms do not improve, I think a lumbar puncture would be the next step to exclude hydroceph alus as a contributing cause. Neurosurgery has been consulted and is involved. There does not appear to be any evidence of seizure activity on his EEG, though it seems certainly re asonable to continue him on Keppra in the short term. His MRI shows no obvious evidence of disease progression as the cause, which was discussed with the p kevin and his . Our service will continue to follow him during his hospital stay. His case was discussed with the hospitalist service. Total time for today's visit was approximately 40 minutes, of which greater than 50% was spent counse ling care coordination. /[id number]/MODL
--- NOTE | 2018-07-15 18:16 | PDMN ---
Medical Necessity Medical necessity: Change to inpt as of 07/15/18 @ 17:51, meets inpt [place] per MD order and Neurology GRG, communicating hydrocephalus, 3 days. 78 y/o w/ recent hx of craniotomy for resection of glioblastoma multiforme (Feb 2018) followed by chemo/radiation now presenting w/increased confusion and shuffling gait, Neurosurg consult, brain MRI shows mild communicating hydrocephalus. Pt c/ o frontal AVILA's today, upgraded to inpt for further med nec eval/treatment of above.
[2018-07-15] MEDS: levETIRAcetam 500 MG TAB PO SCH (21:52)
[2018-07-15] MEDS: LATANOPROST 0.005% 2.5 ML OPHT DROPS LEFTEYE SCH (22:37)
--- NOTE | 2018-07-16 07:08 | NEUSURGPN ---
Assessment/Plan: 78M who is s/p craniotomy for Left occipital GBM last summer. presenting with shuffling gait, confusion. EEG negative for seizure activity. Imaging shows mild hydrocephalus that is unclear if contributing to symptoms -continue Keppra -could try high volume LP and see if symptoms improve -consider psych eval -Dr. Cook to discuss with family later today. Subjective: complains of confusion, despite knowing where he is. no other complaints in our interview this am. Objective: NAD vss aaox3 speech clear, some occasional word finding difficulty. cnii-xii grossly intact EOMI, PEARLA MAEx4, 5/5=, tremor noted. SILT Gait deferred - Physician Discussed Patient with : [facility] Physical Exam - Vitals, I&O, Labs I and O 07/15/18 07/16/18 07/17/18 05:59 05:59 05:59 Intake Total 150 100 Output Total 300 1200 Balance -150 -1100 Weight 79.5 kg Intake: Oral (ml) 150 100 Output: Urine (ml) 300 1200 Toilet 300 1200 Other: Number of Voids Toilet 3 1 Number of Stools Toilet 1 Vital Signs Temp Pulse Resp BP Pulse Ox 36.7 C 103 H 16 151/102 H 94 07/16/18 03:49 07/16/18 03:49 07/16/18 03:49 07/16/18 03:49 07/16/18 03:49 Laboratory Results 07/15/18 04:36 07/15/18 04:36 ICD10 Worksheet Patient Problems: Problems Problem Status Onset Brain mass Acute Encephalopathy Acute Hypertension Acute
[2018-07-16] MEDS: DEXAMETHASONE 4 MG TAB PO SCH ×2 (08:04→09:37)
[2018-07-16] MEDS: ENOXAPARIN 40 MG/0.4 ML SYR SC SCH (09:43)
[2018-07-16] MEDS: levETIRAcetam 500 MG TAB PO SCH ×2 (09:43→21:31)
[2018-07-16] MEDS: LORazepam 2 MG/ML INJ IVP PRN ×2 (09:43→13:48)
[2018-07-16] MEDS: TIMOLOL 0.5% 15 ML OPHT.BTL LEFTEYE SCH ×2 (10:55→21:31)
--- NOTE | 2018-07-16 11:33 | SOAPPROG ---
SOAP Progress Note Assessment/Plan: Assessment/Plan: Patient is a 78-year-old male with a recent diagnosis of glioblastoma multi- forming treated with chemo and radiation admitted for roughly 3-4 weeks of ongoing difficulty managing activities of daily living and disorientation. Problem #1- functional decline and disorientation No real underlying diagnosis this time. Presumably this is related to chemoradiation. He does not have a waxing and waning mentation, expect where he. He appears to be disoriented and anxious most of the time. He has had incomplete response to anxiety medications that he has had no response to steroids. His MRI of the brain to have not shown any real etiology, cerebral edema or change. He may have some mild communicating hydrocephalus but would not expect this to cause symptoms. Certainly could not hurt continue to try a large volume lumbar puncture. This would be my recommendation at this time. In the meantime will try seroquel 12.5mg 3 times daily to try to decrease his anxiety and become more comfortable Subjective: Patient was given a dose of dexamethasone overnight, unfortunately this did not improve his mental status. He is disoriented to place and time even struggles with his 's name. He has no other complaints Objective: Vital Signs Temp Pulse Resp BP Pulse Ox 36.7 C 112 H 16 162/109 H 94 07/16/18 03:49 07/16/18 07:13 07/16/18 07:13 07/16/18 07:17 07/16/18 07:13 Laboratory Results 07/15/18 04:36 07/15/18 04:36 07/15/18 07/16/18 07/17/18 05:59 05:59 05:59 Intake Total 150 100 Output Total 300 1200 Balance -150 -1100 General: Somewhat frightened appearing male younger than stated age HEENT: Round reactive to light no scleral icterus is appreciated oral mucosa moist without any evidence of oropharyngeal lesions Neck: Supple Cardiovascular: Tachycardic rate normal rhythm without rubs or gallops or murmurs Chest: Clear to auscultation anteriorly Abdomen: Soft nontender mildly distended without megaly Neurologic: Oriented to person only cranial nerves II through XII intact ICD10 Worksheet Patient Problems: Problems Problem Status Onset Brain mass Acute Encephalopathy Acute Hypertension Acute
--- NOTE | 2018-07-16 14:11 | NEUROPROG ---
Assessment: [id number] - Neurology Consult: - CC: Worsening confusion in setting of Brain Tumor - Narrative Summary: 07/15/18: Pt had resection of left occipital glioblastoma multiforme in February 2018 as well as chemo and radiation which he completed in May 2018. His brother noted after completing radiation therapy in May his cognition had begun to worsen. For the last 3 weeks pts reported he has had worsening confusion. Pts family also reported a new shuffling gait but no incontinence issues. Pt admitted to [facility] on 07/14/18. Brain MRI wwo showed mild developing hydrocephalus which could explain his symptoms. There was also some concern his confusion may be due to subclinical seizures as his confusion improved after getting ativan. Due to concern for possible subclinical seizures he was placed Keppra 500 mg bid and EEG ordered. I agree with plan to consult oncology. I would recommend neurosurgery consultation to evaluate his new hydrocephalus. - HPI: F/U 07/16/18. EEG showed no seizures. Pt on Keppra 500 mg bid. Neurosurgery saw pt and did not think mild hydrocephalus was causing his issues but did recommend considering high volume LP if symptoms do not improve. Oncology plans to re-initiate steroids to see if this improves symptoms. No reported seizures. No further inpt w/u from neurology perspective planned, neurology will sign off. - PMHx: HTN, glaucoma, hearing loss, GBM with resection , aneurysm of spine 1994, cataract - SHx: no tobacco FHx: CAD, dementia - ROS: Pt denied acute fever, total vision loss, active severe chest pain, respiratory failure, total body severe rash, total bowel/bladder incontinence, psychosis, active seizures, or active bleeding - Labs: 07/14/18- CBC Plt 119, CHem BUN 40H Anion gap 5L - Rads: 07/04/18- Brain MRI wwo: Resection site in left occipital lobe is table. The patient is slowly developing mild communicating hydrocephalus. - Assessment: 1. 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 Increasing confusion 3. Mild Communicating Hydrocephalus: not likely symptomatic per neurosurgery - Plan: - Continue Keppra 500 mg bid to cover chance seizures are causing some of the worsening confusion - Appreciate oncology and neurosurgery consults - Agree with plan to restart steroids to see if this improves symptoms - If no improvement could consider large volume tap with LP to see if symptoms improve to see if hydrocephalus is symptomatic - No further inpt neurologic w/u needed, neurology will sign off - Pt can f/u with his outpatient neurologist, Dr. Adhikari, 1-6 weeks after hospital discharge - 35 min spent with patient, majority of time spent counseling on condition, treatment options, and prognosis Objective: Vital Signs Temp Pulse Resp BP Pulse Ox 36.7 C 112 H 16 162/109 H 94 07/16/18 03:49 07/16/18 07:13 07/16/18 07:13 07/16/18 07:17 07/16/18 07:13 Laboratory Results 07/15/18 04:36 07/15/18 04:36 07/15/18 07/16/18 07/17/18 05:59 05:59 05:59 Intake Total 150 100 Output Total 300 1200 Balance -150 -1100 Allergies/Adverse Reactions: No Known Allergies Allergy (Verified 09/13/17 10:39)
--- NOTE | 2018-07-16 15:04 | HOSPPROG ---
Hospitalist Progress Note Assessment/Plan: 78-year-old male with glioblastoma multiform admitted with worsening confusion and encephalopathy Encephalopathy- I suspect this is related to his malignancy. Labs reviewed and no suggestion of infection or electrolyte driven encephalopathy. MRI showing mild communicating hydrocephalus which may be the cause of his symptoms. I discussed the case with Oncology who feels that this may be due to his steroid taper as well. Neurology has been consulted who has performed a EEG and does not see any obvious epileptiform activity. -discussed with neurosurgery who feels that hydrocephalus not likely contributing but consider large volume LP -oncology started decadron yesterday but no improvement in symptoms -onc today feels LP warranted, recommends stopping decadron. -[facility] -PT/OT Glioblastoma multiform- lesion noted in his left occipital. Status post resection in February of 2018 along with chemoradiation which he completed in May of 2018. He follows with Dr. Brett juarez -onc consulted. Debility- patient was become notably weaker over the last weeks to months. Likely related to malignancy and decreased activity. I have consulted Physical therapy and Occupational therapy to work with the patient and assess his ability to perform his ADLs. Ultimately he may need placement in a higher level of care than what can be provided at home. -pt/ot,alterations tailor Hypertension- patient is on Zestoretic normally. Will hold this until labs have been obtained in case he has electrolyte abnormalities. Blood pressure is currently within normal limits. Will add p.r.n. Hydralazine for systolic over 170. PPX- SCDs,lovenox Fluids- Po lytes- pending Nutrition- regular Cor- DNR Disp- inpatient for further evaluation of encephalopathy and confusion Subjective: anxious today. oriented, but is confused wtih details. No pain. Objective: Vital Signs Temp Pulse Resp BP Pulse Ox 36.7 C 112 H 16 162/109 H 94 07/16/18 03:49 07/16/18 07:13 07/16/18 07:13 07/16/18 07:17 07/16/18 07:13 Laboratory Results 07/15/18 04:36 07/15/18 04:36 07/15/18 07/16/18 07/17/18 05:59 05:59 05:59 Intake Total 150 100 Output Total 300 1200 Balance -150 -1100 - Physical Exam Constitutional: appears nourished, not in pain Eyes: PERRL, anicteric sclera, EOMI Ears, Nose, Mouth, Throat: moist mucous membranes, hearing normal, ears appear normal, no oral mucosal ulcers Cardiovascular: regular rate and rhythym, no murmur, rub, or gallop Respiratory: no respiratory distress, no rales or rhonchi, clear to auscultation Gastrointestinal: normoactive bowel sounds, soft, non-tender abdomen, no palpable masses Genitourinary: no bladder fullness, no bladder tenderness, no renal bruits Skin: no rashes or abrasions, no fluctuance, no induration Musculoskeletal: full muscle strength, no muscle tenderness Neurologic: AAOx3 Psychiatric: anxious, poor memory Lymph, Heme, Immunologic: no cervical LAD, no supraclavicular LAD ICD10 Worksheet Patient Problems: Problems Problem Status Onset Brain mass Acute Encephalopathy Acute Hypertension Acute
[2018-07-16] MEDS: QUEtiapine FUMARATE 25 MG TAB PO SCH ×2 (15:42→21:33)
[2018-07-16] MEDS ORDERED: QUEtiapine FUMARATE 25 MG TAB PO SCH (16:00)
--- NOTE | 2018-07-16 16:12 | ASMTCMCOM ---
CM Note CM Note Notes: Both PT and OT have recommended home care for pt. No referrals made at this time. D/C Plan: HC PT/OT Date Signed: 07/16/2018 04:11 PM Electronically Signed By:Abbi Hector
[2018-07-16] MEDS: LATANOPROST 0.005% 2.5 ML OPHT DROPS LEFTEYE SCH (21:56)
--- NOTE | 2018-07-17 08:36 | NEUSURGPN ---
Assessment/Plan: 78M who is s/p craniotomy for Left occipital GBM last summer. presenting with shuffling gait, confusion. EEG negative for seizure activity. Imaging shows mild hydrocephalus that is unclear if contributing to symptoms -continue Keppra -consider psych eval -oncology recs -will follow results of high volume LP and see if symptoms improve -if no improvement with LP, likely no role for NS intervention to improve his symptoms. -Dr. Cook to discuss with family later today. Subjective: no new concerns. spoke with brother at bedside as well. Objective: NAD vss aaox3 speech clear, some occasional word finding difficulty. cnii-xii grossly intact EOMI, PEARLA MAEx4, 5/5=, tremor noted. SILT Gait deferred - Physician Discussed Patient with Dr.: Cook Neurosurgery Physical Exam - Vitals, I&O, Labs I and O 07/16/18 07/17/18 07/18/18 05:59 05:59 05:59 Intake Total 100 650 Output Total 1200 Balance -1100 650 Intake: Oral (ml) 100 650 Output: Urine (ml) 1200 Toilet 1200 Other: Number of Voids Toilet 1 Number of Stools Toilet 1 Vital Signs Temp Pulse Resp BP Pulse Ox 36.6 C 87 16 121/82 H 95 07/17/18 08:01 07/17/18 08:01 07/17/18 08:01 07/17/18 08:01 07/17/18 08:01 Laboratory Results 07/15/18 04:36 07/15/18 04:36 ICD10 Worksheet Patient Problems: Problems Problem Status Onset Brain mass Acute Encephalopathy Acute Hypertension Acute
[2018-07-17] MEDS: levETIRAcetam 500 MG TAB PO SCH ×4 (09:24→23:22)
[2018-07-17] MEDS: QUEtiapine FUMARATE 25 MG TAB PO SCH ×3 (09:24→22:31)
[2018-07-17] MEDS: ENOXAPARIN 40 MG/0.4 ML SYR SC SCH (09:25)
[2018-07-17 10:48] LABS: PLATELET COUNT 139 10^3/uL (150-400)
[2018-07-17] MEDS ORDERED: QUEtiapine FUMARATE 25 MG TAB PO ONE (10:49)
--- NOTE | 2018-07-17 11:21 | SOAPPROG ---
SOAP Progress Note Assessment/Plan: Assessment/Plan: Patient is a 78-year-old male with a recent diagnosis of glioblastoma multi- forming treated with chemo and radiation admitted for roughly 3-4 weeks of ongoing difficulty managing activities of daily living and disorientation. Problem #1- functional decline and disorientation No real underlying diagnosis this time. Presumably this is related to chemoradiation. He does not have a waxing and waning mentation, as one would expect with delerium. He appears to be disoriented and anxious most of the time. He has had incomplete response to anxiety medications and he has had no response to steroids. His MRI of the brain x2 have not shown any real etiology , cerebral edema or changes. He may have some mild communicating hydrocephalus but would not expect this to cause symptoms. Certainly could not hurt continue to try a large volume lumbar puncture. This would be my recommendation at this time. In the meantime he seems to have mild improvement on seroquel 25mg 3 times daily , would continue this. Spoke with his Abbi and his QOL is poor enough where we will not be starting adjuvant temodar. 07/17/18 11:16 Subjective: Was placed on seroquel 12.5mg TID which was increased to 25 mg 3 times daily for anxiety. Patient required restraints yesterday to prevent him from wandering. Discussed patient's and brother that perhaps on seroquel patient has more insight into his anxiety which seems to stem from his GBM diagnosis and his functional/mental decline. Objective: Vital Signs Temp Pulse Resp BP Pulse Ox 36.6 C 87 16 121/82 H 95 07/17/18 08:01 07/17/18 08:01 07/17/18 08:01 07/17/18 08:01 07/17/18 08:01 Laboratory Results 07/17/18 10:15 07/17/18 10:15 07/16/18 07/17/18 07/18/18 05:59 05:59 05:59 Intake Total 100 650 Output Total 1200 Balance -1100 650 General: Somewhat frightened appearing male younger than stated age HEENT: Round reactive to light no scleral icterus is appreciated oral mucosa moist without any evidence of oropharyngeal lesions Neck: Supple Cardiovascular: Tachycardic rate normal rhythm without rubs or gallops or murmurs Chest: Clear to auscultation anteriorly Abdomen: Soft nontender mildly distended without organomegaly Neurologic: Oriented to person only cranial nerves II through XII intact ICD10 Worksheet Patient Problems: Problems Problem Status Onset Brain mass Acute Encephalopathy Acute Hypertension Acute
[2018-07-17] MEDS ORDERED: LORazepam 2 MG/ML INJ IVP ONE (11:56)
[2018-07-17 12:07] LABS: INR 0.95 (0.83-1.16); PROTIME(PATIENT) 12.3 SEC (12.0-15.0)
--- NOTE | 2018-07-17 13:55 | HOSPPROG ---
Hospitalist Progress Note Assessment/Plan: 78-year-old male with glioblastoma multiform admitted with worsening confusion and encephalopathy Encephalopathy- I suspect this is related to his malignancy. Labs reviewed and no suggestion of infection or electrolyte driven encephalopathy. MRI showing mild communicating hydrocephalus which may be the cause of his symptoms. I discussed the case with Oncology who feels that this may be due to his steroid taper as well. Neurology has been consulted who has performed a EEG and does not see any obvious epileptiform activity. -neurosurgery recommends LP, ordered by likely not able to be done until Wednesday -trial of decadron with no response so has been stopped -psych eval -[employer] -PT/OT -onc/neurosurgery following, neuro has evaluated and signed off. Glioblastoma multiform- lesion noted in his left occipital. Status post resection in February of 2018 along with chemoradiation which he completed in May of 2018. He follows with Dr. Brett juarez -onc consulted. -given poor QOL not likely a candidate for adjuvant chemo. Debility- patient was become notably weaker over the last weeks to months. Likely related to malignancy and decreased activity. I have consulted Physical therapy and Occupational therapy to work with the patient and assess his ability to perform his ADLs. Ultimately he may need placement in a higher level of care than what can be provided at home. -pt/ot,digital campaign specialist Hypertension- patient is on Zestoretic normally. Will hold this until labs have been obtained in case he has electrolyte abnormalities. Blood pressure is currently within normal limits. Will add p.r.n. Hydralazine for systolic over 170. PPX- SCDs, lovenox held for LP in am. Fluids- Po lytes- pending Nutrition- regular Cor- DNR Disp- inpatient for further evaluation of encephalopathy and confusion Subjective: patient less anxious today. no pain. less confused. Objective: Vital Signs Temp Pulse Resp BP Pulse Ox 36.6 C 87 16 121/82 H 95 07/17/18 08:01 07/17/18 08:01 07/17/18 08:01 07/17/18 08:01 07/17/18 08:01 Laboratory Results 07/17/18 10:15 07/17/18 10:15 07/16/18 07/17/18 07/18/18 05:59 05:59 05:59 Intake Total 100 650 Output Total 1200 Balance -1100 650 PT 12.3 SEC (12.0-15.0) 07/17/18 11:44 INR 0.95 (0.83-1.16) 07/17/18 11:44 - Physical Exam Constitutional: no apparent distress, appears nourished Eyes: PERRL, anicteric sclera, EOMI Ears, Nose, Mouth, Throat: moist mucous membranes, hearing normal, ears appear normal, no oral mucosal ulcers Cardiovascular: regular rate and rhythym, no murmur, rub, or gallop Respiratory: no respiratory distress, no rales or rhonchi, clear to auscultation Gastrointestinal: normoactive bowel sounds, soft, non-tender abdomen, no palpable masses Genitourinary: no bladder fullness, no bladder tenderness, no renal bruits Skin: no rashes or abrasions, no fluctuance, no induration Musculoskeletal: generalized weakness Neurologic: AAOx3 Psychiatric: interacting appropriately, not anxious, thought process linear, other (has upper extremity tremor. Today oriented to person, place, struggles with date. knows why he is here. generalized weakness. ) Lymph, Heme, Immunologic: no cervical LAD, no supraclavicular LAD ICD10 Worksheet Patient Problems: Problems Problem Status Onset Brain mass Acute Encephalopathy Acute Hypertension Acute
[2018-07-17] MEDS: LATANOPROST 0.005% 2.5 ML OPHT DROPS LEFTEYE SCH (22:44)
[2018-07-17] MEDS: levETIRAcetam 500 MG/5 ML UDCUP PO SCH (22:59)
[2018-07-18 04:38] LABS: PLATELET COUNT 122 10^3/uL (150-400)
--- NOTE | 2018-07-18 08:41 | NEUSURGPN ---
Assessment/Plan: 78M who is s/p craniotomy for Left occipital GBM last summer. presenting with shuffling gait, confusion. EEG negative for seizure activity. Imaging shows mild hydrocephalus that is unclear if contributing to symptoms - neuro stable today -continue Keppra -consider psych eval -oncology recs -will follow results of high volume LP and see if symptoms improve -if no improvement with LP, likely no role for NS intervention to improve his symptoms. -Discussed with Dr. Cook Subjective: Denies any pain, nausea, dizziness Objective: Alert and oriented to self. Can orient to month with some redirection. Not oriented to place speech clear, some occasional word finding difficulty. cnii-xii grossly intact EOMI, PEARLA MAEx4, 07/31=, - Physician Discussed Patient with : [facility] Physical Exam - Vitals, I&O, Labs I and O 07/17/18 07/18/18 07/19/18 05:59 05:59 05:59 Intake Total 650 1200 Balance 650 1200 Intake: Oral (ml) 650 1200 Other: Number of Voids Toilet 2 Number of Stools Toilet 1 Vital Signs Temp Pulse Resp BP Pulse Ox 36.7 C 86 16 120/86 H 95 07/18/18 07:33 07/18/18 07:33 07/18/18 07:33 07/18/18 07:33 07/18/18 07:33 Laboratory Results 07/18/18 04:10 07/18/18 04:10 ICD10 Worksheet Patient Problems: Problems Problem Status Onset Brain mass Acute Encephalopathy Acute Hypertension Acute
[2018-07-18] MEDS ORDERED: LIDOCAINE 1% 300 MG/30 ML SDV ONE (09:19)
[2018-07-18] MEDS: TIMOLOL 0.5% 15 ML OPHT.BTL LEFTEYE SCH (11:28)
--- NOTE | 2018-07-18 12:13 | SOAPPROG ---
SOAP Progress Note Assessment/Plan: Assessment: Patient is a 78-year-old male with a recent diagnosis of glioblastoma multi- forming treated with chemo and radiation admitted for roughly 3-4 weeks of ongoing difficulty managing activities of daily living and disorientation. Problem #1- functional decline and disorientation No real underlying diagnosis this time. Presumably this is related to chemoradiation. He does not have a waxing and waning mentation, as one would expect with delerium. He appears to be disoriented and anxious most of the time. He has had incomplete response to anxiety medications and he has had no response to steroids. His MRI of the brain x2 have not shown any real etiology , cerebral edema or changes. He may have some mild communicating hydrocephalus but would not expect this to cause symptoms. S/p large volume LP today, CSF chemistry pretty unremarkable, 0 wbc, protein 61, 15 rbc, other studies pending Plan:Follow for now, long discussion with 07/18/18 12:10 07/18/18 12:12 Subjective: Sleepy Objective: Vital Signs Temp Pulse Resp BP Pulse Ox 98.1 F 86 16 120/86 H 95 07/18/18 07:33 07/18/18 07:33 07/18/18 07:33 07/18/18 07:33 07/18/18 07:33 Microbiology 07/18/18 10:53 Gram Stain - Final Cerebral Spinal Fluid Laboratory Results 07/18/18 04:10 07/18/18 04:10 07/17/18 07/18/18 07/19/18 05:59 05:59 05:59 Intake Total 650 1200 Balance 650 1200 PT 12.3 SEC (12.0-15.0) 07/17/18 11:44 INR 0.95 (0.83-1.16) 07/17/18 11:44 ICD10 Worksheet Patient Problems: Problems Problem Status Onset Brain mass Acute Encephalopathy Acute Hypertension Acute
[2018-07-18] MEDS: levETIRAcetam 500 MG/5 ML UDCUP PO SCH ×2 (12:26→21:13)
[2018-07-18] MEDS: QUEtiapine FUMARATE 25 MG TAB PO SCH ×3 (12:27→21:13)
--- NOTE | 2018-07-18 14:51 | ASMTCMCOM ---
CM Note CM Note Notes: Chart reviewed for discharge planning. patient was living at home. May need higher level of care per therapies. Speech recommending inpatient rehab at this point in time. Pt s/p lumbar puncture yesterday in hopes to diagnose worsening mentation. Per therapies patient is confused and hard to orient. CM will attempt to reach out to to help elaborate current needs and living situation. Plan: TBD Date Signed: 07/18/2018 02:31 PM Electronically Signed By:Gabriella Kidd RN
--- NOTE | 2018-07-18 14:57 | HOSPPROG ---
Hospitalist Progress Note Assessment/Plan: # encephalopathy - started about 3 weeks ago; possibly slightly improved after high volume LP - only able to remove 17cc of CSF d/t patient discomfort - follow mental status today # glioblastoma multiforme s/p resection 2018, followed by chemo and radiation # debility - had become weaker over the last few months # htn - reasonable today # tachycardia - will follow closely, was not as tachy when I saw him Subjective: s/p high volume LP today; thinks he is maybe a little better Objective: Vital Signs Temp Pulse Resp BP Pulse Ox 36.7 C 119 H 16 143/96 H 95 07/18/18 07:33 07/18/18 12:32 07/18/18 07:33 07/18/18 12:32 07/18/18 07:33 Microbiology 07/18/18 10:53 Gram Stain - Final Cerebral Spinal Fluid Laboratory Results 07/18/18 04:10 07/18/18 04:10 07/17/18 07/18/18 07/19/18 05:59 05:59 05:59 Intake Total 650 1200 450 Balance 650 1200 450 PT 12.3 SEC (12.0-15.0) 07/17/18 11:44 INR 0.95 (0.83-1.16) 07/17/18 11:44 chart reviewed MRIs reviewed - Physical Exam Constitutional: no apparent distress, appears nourished, other (unable to fully follow conversation) Cardiovascular: regular rate and rhythym, no murmur, rub, or gallop Respiratory: no respiratory distress, no rales or rhonchi Gastrointestinal: soft, non-tender abdomen, no palpable masses ICD10 Worksheet Patient Problems: Problems Problem Status Onset Encephalopathy Acute Hypertension Acute Brain mass Acute
[2018-07-18] MEDS: LATANOPROST 0.005% 2.5 ML OPHT DROPS LEFTEYE SCH (21:13)
--- NOTE | 2018-07-19 08:14 | NEUSURGPN ---
Assessment/Plan: 78M who is s/p craniotomy for Left occipital GBM last summer. presenting with shuffling gait, confusion. EEG negative for seizure activity. Imaging shows mild hydrocephalus that is unclear if contributing to symptoms -LP yesterday, culture result pending - neuro maybe slightly improved. Patient quicker to follow commands and oriented to place and person. Recommended Cognitive eval this morning to eval for improvements. -continue Keppra -Recommend psych eval -Pending speech eval may s/o off today if no improvement after LP -Discussed with Dr. Cook Subjective: Denies any headache, nausea, dizziness Objective: Alert and oriented to self and place. Can orient to month with some redirection. speech clear, quicker to respond to questions cnii-xii grossly intact EOMI, PEARLA MAEx4, 07/31=, - Physician Discussed Patient with : [facility] Physical Exam - Vitals, I&O, Labs I and O 07/18/18 07/19/18 07/20/18 05:59 05:59 05:59 Intake Total 1200 1050 Balance 1200 1050 Intake: Oral (ml) 1200 1050 Other: Intake Quantity Yes Sufficient Number of Voids Toilet 2 3 Number of Stools Toilet 1 Microbiology 07/18/18 10:53 Gram Stain - Final Cerebral Spinal Fluid Vital Signs Temp Pulse Resp BP Pulse Ox 36.8 C 83 16 116/71 94 07/19/18 07:19 07/19/18 07:19 07/19/18 07:19 07/19/18 07:19 07/19/18 07:19 Laboratory Results 07/18/18 04:10 07/18/18 04:10 ICD10 Worksheet Patient Problems: Problems Problem Status Onset Brain mass Acute Encephalopathy Acute Hypertension Acute
--- NOTE | 2018-07-19 09:28 | HOSPPROG ---
Hospitalist Progress Note Assessment/Plan: # encephalopathy - started about 3 weeks ago; possibly slightly improved after high volume LP - repeat cog eval today - will ask onc or nsg to evaluate the dose of radiation that he received per his brother's request - only able to remove 17cc of CSF d/t patient discomfort - will ask psych to evaluate due to ongoing anxiety # glioblastoma multiforme s/p resection 2018, followed by chemo and radiation # debility - had become weaker over the last few months # htn - reasonable today # tachycardia - will follow closely, was not as tachy when I saw him Subjective: discussed with his brother; more verbal today but still very confused Objective: Vital Signs Temp Pulse Resp BP Pulse Ox 36.8 C 83 16 116/71 94 07/19/18 07:19 07/19/18 07:19 07/19/18 07:19 07/19/18 07:19 07/19/18 07:19 Microbiology 07/18/18 10:53 Gram Stain - Final Cerebral Spinal Fluid Laboratory Results 07/18/18 04:10 07/18/18 04:10 07/18/18 07/19/18 07/20/18 05:59 05:59 05:59 Intake Total 1200 1050 Balance 1200 1050 PT 12.3 SEC (12.0-15.0) 07/17/18 11:44 INR 0.95 (0.83-1.16) 07/17/18 11:44 - Physical Exam Constitutional: uncomfortable Eyes: anicteric sclera Ears, Nose, Mouth, Throat: hearing normal Cardiovascular: No edema Respiratory: no respiratory distress Gastrointestinal: No distension Genitourinary: No de dios in urethra Skin: normal color Neurologic: other (confused) Psychiatric: anxious ICD10 Worksheet Patient Problems: Problems Problem Status Onset Encephalopathy Acute Hypertension Acute Brain mass Acute
[2018-07-19] MEDS: levETIRAcetam 500 MG/5 ML UDCUP PO SCH ×2 (09:40→20:09)
[2018-07-19] MEDS: QUEtiapine FUMARATE 25 MG TAB PO SCH ×3 (09:40→20:09)
[2018-07-19] MEDS: TIMOLOL 0.5% 15 ML OPHT.BTL LEFTEYE SCH (09:47)
[2018-07-19] MEDS: ENOXAPARIN 40 MG/0.4 ML SYR SC SCH (11:13)
--- NOTE | 2018-07-19 11:40 | SOAPPROG ---
SOAP Progress Note Assessment/Plan: Assessment: Patient is a 78-year-old male with a recent diagnosis of glioblastoma multi- forming treated with chemo and radiation admitted for roughly 3-4 weeks of ongoing difficulty managing activities of daily living and disorientation. Problem #1- functional decline and disorientation perhaps a bit better today, psychiatry consult pending. RT was directed to left occiput but story given the nature of GBM are fairly broad. Plan:Follow for now 07/18/18 12:10 07/18/18 12:12 07/19/18 11:38 Objective: Vital Signs Temp Pulse Resp BP Pulse Ox 98.2 F 83 16 116/71 94 07/19/18 07:19 07/19/18 07:19 07/19/18 07:19 07/19/18 07:19 07/19/18 07:19 Microbiology 07/18/18 10:53 Gram Stain - Final Cerebral Spinal Fluid Laboratory Results 07/18/18 04:10 07/18/18 04:10 07/18/18 07/19/18 07/20/18 05:59 05:59 05:59 Intake Total 1200 1050 Balance 1200 1050 PT 12.3 SEC (12.0-15.0) 07/17/18 11:44 INR 0.95 (0.83-1.16) 07/17/18 11:44 ICD10 Worksheet Patient Problems: Problems Problem Status Onset Brain mass Acute Encephalopathy Acute Hypertension Acute
--- NOTE | 2018-07-19 15:02 | ASMTCMCOM ---
CM Note CM Note Notes: Plan of care reviewed with am rounds, Patient without significant improvement in mentation. Therapies recommending inpatient rehab at this point. aware. Plan: Inpatient rehab Date Signed: 07/19/2018 03:02 PM Electronically Signed By:Gabriella Kidd RN
[2018-07-19] MEDS: LATANOPROST 0.005% 2.5 ML OPHT DROPS LEFTEYE SCH (20:10)
[2018-07-20] MEDS: levETIRAcetam 500 MG/5 ML UDCUP PO SCH ×2 (07:57→20:23)
[2018-07-20] MEDS: QUEtiapine FUMARATE 25 MG TAB PO SCH ×2 (07:57→15:54)
[2018-07-20] MEDS: ENOXAPARIN 40 MG/0.4 ML SYR SC SCH (07:58)
[2018-07-20] MEDS: TIMOLOL 0.5% 15 ML OPHT.BTL LEFTEYE SCH (11:18)
--- NOTE | 2018-07-20 12:15 | SOAPPROG ---
SOAP Progress Note Assessment/Plan: Assessment: Patient is a 78-year-old male with a recent diagnosis of glioblastoma multi- forming treated with chemo and radiation admitted for roughly 3-4 weeks of ongoing difficulty managing activities of daily living and disorientation. Problem #1- functional decline and disorientation RT was directed to left occiput but story given the nature of GBM are fairly broad.He is much better today, query time versus seroquel versus LP? Recovery would tend to rule against radiation damage as this is not reversible. Plan:discuss with NS/ neurology/ hospitalist. follow up with Dr Acosta at [facility] 07/18/18 12:10 07/18/18 12:12 07/19/18 11:38 07/20/18 12:12 Subjective: Awake alert Objective: Vital Signs Temp Pulse Resp BP Pulse Ox 97.9 F 94 16 161/113 H 96 07/20/18 07:35 07/20/18 07:35 07/20/18 07:35 07/20/18 07:35 07/20/18 07:35 Microbiology 07/18/18 10:53 Gram Stain - Final Cerebral Spinal Fluid Laboratory Results 07/18/18 04:10 07/18/18 04:10 07/19/18 07/20/18 07/21/18 05:59 05:59 05:59 Intake Total 1050 950 Balance 1050 950 PT 12.3 SEC (12.0-15.0) 07/17/18 11:44 INR 0.95 (0.83-1.16) 07/17/18 11:44 Physical Exam - Physical Exam General Appearance: alert, no apparent distress Respiratory: lungs clear, normal breath sounds Abdomen: normal bowel sounds, non-tender ICD10 Worksheet Patient Problems: Problems Problem Status Onset Brain mass Acute Encephalopathy Acute Hypertension Acute
--- NOTE | 2018-07-20 15:47 | HOSPPROG ---
Hospitalist Progress Note Assessment/Plan: # encephalopathy - started about 3 weeks ago; possibly slightly improved after high volume LP -etiology, unclear. ?Multifactorial -Avoid Ativan #Hydrocephalus, s/p LP # glioblastoma multiforme s/p resection 2018, followed by chemo and radiation # debility - had become weaker over the last few months # htn - reasonable today, one elevated reading, monitor for now. Holding home meds # tachycardia - will follow closely, was not as tachy when I saw him #Psychosis?: Psych seeing and adjusting antipsychotics PT/OT Neuro to reevaluate tomorrow per pt's request Subjective: no cp or sob. very confused. requesting NSG to evaluate pt Objective: Vital Signs Temp Pulse Resp BP Pulse Ox 36.6 C 94 16 161/113 H 96 07/20/18 07:35 07/20/18 07:35 07/20/18 07:35 07/20/18 07:35 07/20/18 07:35 Microbiology 07/18/18 10:53 Gram Stain - Final Cerebral Spinal Fluid Laboratory Results 07/18/18 04:10 07/18/18 04:10 07/19/18 07/20/18 07/21/18 05:59 05:59 05:59 Intake Total 1050 950 Balance 1050 950 PT 12.3 SEC (12.0-15.0) 07/17/18 11:44 INR 0.95 (0.83-1.16) 07/17/18 11:44 - Physical Exam Constitutional: no apparent distress Eyes: PERRL, EOMI Ears, Nose, Mouth, Throat: moist mucous membranes, hearing normal Cardiovascular: regular rate and rhythym, No edema Respiratory: no respiratory distress, no rales or rhonchi, clear to auscultation Gastrointestinal: normoactive bowel sounds Skin: warm Neurologic: No AAOx3 Psychiatric: interacting appropriately, not anxious, encephalopathic Lymph, Heme, Immunologic: No petechiae ICD10 Worksheet Patient Problems: Problems Problem Status Onset Brain mass Acute Encephalopathy Acute Hypertension Acute
[2018-07-20] MEDS ORDERED: QUEtiapine FUMARATE 25 MG TAB PO PRN (16:00)
[2018-07-20] MEDS: LATANOPROST 0.005% 2.5 ML OPHT DROPS LEFTEYE SCH (20:24)
[2018-07-20] MEDS ORDERED: QUEtiapine FUMARATE 25 MG TAB PO SCH (21:00)
--- NOTE | 2018-07-21 07:53 | NEUSURGPN ---
Assessment/Plan: Assessment/Plan: 78M who is s/p craniotomy for Left occipital GBM last summer. presenting with shuffling gait, confusion. EEG negative for seizure activity. Imaging shows mild hydrocephalus that is unclear if contributing to symptoms -LP that yielded only 17ccs gave him some improvement. Talked with Dr. Cook, and given low volume of LP, unclear if this is for sure what made him of if it is some combination of other factors. We would like him to go home and see how he does there, then if he starts to decline again, we can send for repeat LP as outpatient and if he improves again, then we could consider a shunt. - not at bedside this morning to discuss but can either call her later or stop by after morning case -continue Keppra -Continue therapies -Dispo- Per primary team but hopefully to be discharged home soon -Discussed with Dr. Cook Subjective: Denies any headache, nausea, dizziness. Still somewhat slow to respond but overall still improved. Objective: Alert and oriented to self and place. Can orient to month with some redirection. speech clear, quicker to respond to questions cnii-xii grossly intact EOMI, PEARLA MAEx4, 5=, - Physician Discussed Patient with : [facility] Physical Exam - Vitals, I&O, Labs I and O 07/20/18 07/21/18 07/22/18 05:59 05:59 05:59 Intake Total 950 1000 Balance 950 1000 Intake: Oral (ml) 950 1000 Other: Number of Voids Toilet 1 2 Number of Stools Toilet 1 1 Microbiology 07/18/18 10:53 Gram Stain - Final Cerebral Spinal Fluid Vital Signs Temp Pulse Resp BP Pulse Ox 36.8 C 90 16 155/98 H 95 07/20/18 20:58 07/20/18 20:58 07/20/18 20:58 07/20/18 20:58 07/20/18 20:58 Laboratory Results 07/18/18 04:10 07/18/18 04:10 ICD10 Worksheet Patient Problems: Problems Problem Status Onset Brain mass Acute Encephalopathy Acute Hypertension Acute
[2018-07-21 08:34] VITALS: BP 143/92
[2018-07-21] MEDS: ENOXAPARIN 40 MG/0.4 ML SYR SC SCH (09:46)
[2018-07-21] MEDS: levETIRAcetam 500 MG/5 ML UDCUP PO SCH (09:49)
[2018-07-21] MEDS: QUEtiapine FUMARATE 25 MG TAB PO SCH (09:51)
[2018-07-21] MEDS: TIMOLOL 0.5% 15 ML OPHT.BTL LEFTEYE SCH (09:55)
--- NOTE | 2018-07-21 11:54 | SOAPPROG ---
SOAP Progress Note Assessment/Plan: Assessment: Patient is a 78-year-old male with a recent diagnosis of glioblastoma multi- forming treated with chemo and radiation admitted for roughly 3-4 weeks of ongoing difficulty managing activities of daily living and disorientation.He is doing much better. Problem #1- functional decline and disorientation RT was directed to left occiput but story given the nature of GBM are fairly broad.He is much better today, query time versus seroquel versus LP? Recovery would tend to rule against radiation damage as this is not reversible. Plan:discuss with NS/ neurology/ hospitalist.Plan is for rehab, follow up with Dr Acosta at [facility] 07/18/18 12:10 07/18/18 12:12 07/19/18 11:38 07/20/18 12:12 07/21/18 11:50 Subjective: Alert, pretty oriented. Objective: Vital Signs Temp Pulse Resp BP Pulse Ox 98.4 F 92 18 143/92 H 98 07/21/18 08:27 07/21/18 08:27 07/21/18 08:27 07/21/18 08:27 07/21/18 08:27 Microbiology 07/18/18 10:53 Gram Stain - Final Cerebral Spinal Fluid Laboratory Results 07/18/18 04:10 07/18/18 04:10 07/20/18 07/21/18 07/22/18 05:59 05:59 05:59 Intake Total 950 1000 Balance 950 1000 PT 12.3 SEC (12.0-15.0) 07/17/18 11:44 INR 0.95 (0.83-1.16) 07/17/18 11:44 ICD10 Worksheet Patient Problems: Problems Problem Status Onset Brain mass Acute Encephalopathy Acute Hypertension Acute
--- NOTE | 2018-07-21 13:17 | PDDCSUM ---
Discharge Summary Discharge Summary: This is a 78 yo male with Glioblastoma who was admitted with acute encephalopathy. He is now better. Etiology is unclear but likely due to benzo use. He did have e/o Hydrocephalus and a LP was obtained but on 17cc were removed. NSG does not believe the removal contributed much to the improved cognition He is being d/c to rehab for further rehabilitation DDX # encephalopathy - started about 3 weeks ago; -etiology, unclear. ?Multifactorial -Avoid Ativan #Hydrocephalus, s/p LP # glioblastoma multiforme s/p resection 2017, followed by chemo and radiation # debility - had become weaker over the last few months. Will go to Rehab # htn - reasonable today, one elevated reading, monitor for now. Holding home meds. If needed, they can be restarted outside the hospital Exam: NAD AAOX3 RRR CTA B S/NT/ND MEDS: SEE MED REC TOTAL TIME SPENT ON D/C IS 35 MINS
--- NOTE | 2018-07-21 13:22 | ASMTLACE ---
LACE Length of stay for Answers: 4-6 days current admission Acuity / Level of Answers: Yes Care: Did the patient have an inpatient admission? Comorbidities - select Answers: Any tumor (including all that apply lymphoma or leukemia) Mild liver or renal disease Other Notes: UTI, Sepsis # of Emergency department Answers: 1-2 visits in the last 6 months Social determinants Answers: Mental health diagnosis (anxiety, depression, pers onality disorders, etc.) Score: 16 Date Signed: 07/21/2018 01:21 PM Electronically Signed By:Aby Reddy
--- NOTE | 2018-07-21 13:29 | ASMTCMCOM ---
CM Note CM Note Notes: Met with Pt and to discuss discharge planning. I contacted [facility] yesterday and A bed became available today and will accept Pt. Abbi is very happy. Dr Goss made aware and discharge orders done. Pt will discharge a at 1400 to [facility]. RN aware and asked to call report to receiving RN. CM available for needs. PLAN: Discharge to [facility]. Date Signed: 07/21/2018 01:29 PM Electronically Signed By:Aby Reddy
[2018-07-21] MEDS: ACETAMINOPHEN 325 MG TAB PO PRN (13:33)
--- NOTE | 2018-07-21 13:38 | PDCONSULT ---
Photogrammetry Airplane Pilot Note: Psychiatry Consultation late entry
--- NOTE | 2018-07-21 14:28 | SOAPPROG ---
KASIE Progress Note Assessment/Plan: psychiatry f/u 07/20/18 13:44 attended pt rounds with primary provider Dr. Goss and staff, discussed pt case and recommendations. met with patient today, Abbi present and daughter also present. pt reports feeling well this AM, believes he slept well last night, sleep never problematic denied feeling anxious. denied experiencing any AH/VH recently and indicates not noting such sxs either notes difficulty with word-finding. also memory. but feels he is getting a little better each day. states he does not have difficulty understanding conversations but has more difficulty with expressing his thoughts and finding right words. denied feeling sedated during day, and not reporting any notable s/e to Seroquel 25mg TID. and dtr are concerned for any major med changes which may affect his mood or behaviors, kayley since doing relatively well over the last few days. states pt called her again this AM and was very appropriate in his conversations/interactions, as also yesterday, compared to being very off baseline over couple weeks prior to admission. mse: sitting upright in hosp chair, in hosp gown, good eye contact, nml speech vol but with long delay in responses at times, not dysarticulate, + word- finding difficulties and at times with perseverations, slowed processing speed; spontaneous speech and responses to pointed questions seem less difficult for pt than when responding to more complex questions, but seems overall with intact comprehension and with consistent responses to questions. denied SI. denied AH/VH and did not appear responding to internal stim. oriented to person and place and year, not date/day. DX: Neurocognitive d/o, unspecified REC: -Discussed Quetiapine 25mg TID (9a, 4p, 9p) dosing and options- pt and family prefer to decrease dose to 12.5mg BID (9a,4p) with 12.5mg bid prn, and continue 25mg QHS for now and continue to monitor. -discussed with family his notable improvements clinically over the past couple of days, feels this improvement has been temporally related to therapeutic LP. Will cont to be monitored for need of repeat therapeutic LP and consideration of [employer] shunt. reports team plan to txf to rehab after stable for d/c for ongoing monitoring. Also noted was that pt has had discontinuation of BZDs (which were added about 2 -3wk ago for apparent anxiety) and start of Quetiapine since admission which may have also had some beneficial effects. Cont to avoid BZDs due to associated risks. -will continue to follow Objective: Vital Signs Temp Pulse Resp BP Pulse Ox 36.9 C 92 18 143/92 H 98 07/21/18 08:27 07/21/18 08:27 07/21/18 08:27 07/21/18 08:27 07/21/18 08:27 Microbiology 07/18/18 10:53 Gram Stain - Final Cerebral Spinal Fluid Laboratory Results 07/18/18 04:10 07/18/18 04:10 07/20/18 07/21/18 07/22/18 05:59 05:59 05:59 Intake Total 950 1000 Balance 950 1000 PT 12.3 SEC (12.0-15.0) 07/17/18 11:44 INR 0.95 (0.83-1.16) 07/17/18 11:44 ICD10 Worksheet Patient Problems: Problems Problem Status Onset Brain mass Acute Encephalopathy Acute Hypertension Acute
== END 2018-07-21 15:00 | DRG 57 ==
LOC: F1N 12:29 → OBSVTOIN 07-15 17:51
PROVIDERS: ADMIT Internal Medicine; ATTEND Internal Medicine
PROC: 009U3ZZ Drainage of Spinal Canal, Percutaneous Approach (ICD-10-PCS; principal; 2018-07-18)
DX: G91.0 Communicating hydrocephalus (principal); G93.49 Other encephalopathy; T42.75XA Adverse effect of unspecified antiepileptic and sedative-hypnotic drugs, initial encounter; R53.81 Other malaise; I10 Essential (primary) hypertension; H40.9 Unspecified glaucoma; Z85.841 Personal history of malignant neoplasm of brain; Z66 Do not resuscitate
CPT/HCPCS: 82607-90; 92507-GN; 92523-GN; 92610-GN; 97110-GP; 97116-GP; 97163-GP; 97166-GO; 97530-GO; 97530-GP; 97535-GO; A9585; G0378; J0360; J1650; J1953; J2060

== ENCOUNTER 2018-07-21 13:43 | Inpatient (IN) | payer BC, OTHER ==
[2018-07-21] MEDS ORDERED: QUEtiapine FUMARATE 25 MG TAB PO PRN (16:40)
[2018-07-21] MEDS: QUEtiapine FUMARATE 25 MG TAB PO SCH ×2 (17:40→20:28)
--- NOTE | 2018-07-21 18:46 | GHP ---
[f rep st] HISTORY AND PHYSICAL POST ADMISSION PHYSICIAN EVALUATION AND REHABILITATION TREATMENT PLAN DATE OF ADMISSION: 07/21/2018 DATE OF EVALUATION: 07/21/2018. TIME OF EVALUATION: 1655. REFERRING FACILITY: [facility]. REFERRING PHYSICIAN: Dr. Price IMPAIRMENT GROUP: 2.1. DATE OF ONSET: 07/14/2018. REHABILITATION DIAGNOSIS: Debility status post encephalopathy. CONSULTING PHYSICIANS: 1. Neurology, Dr. Rodriguez. 2. Neurosurgery, Dr. Cook. 3. Oncology, Dr. Maravilla. 4. Psychiatry, Dr. Scherer. ETIOLOGIC DIAGNOSIS: Nontraumatic brain dysfunction. HISTORY OF PRESENT ILLNESS: This patient was admitted to [facility] on 07/14/2018 with an approximately 3-week progressive decline in function, including confusion and a shuffling gait. He has a history of glioblastoma multiforme with craniotomy and resection of left occipital lobe mass in February 2018. He also had chemotherapy and radiation, which was completed in May. He had been taking dexamethasone and his dose was decreased. It was thought that this might have been responsible for his decline. Dexamethasone was increased from 4 mg once a day to his prior dose of 4 mg twice a day, with no change in his confusion or gait issues. He subsequently became more confused and developed an upper extremity tremor and a shuffling gait. Evaluation included a brain MRI, which showed mild communicating hydrocephalus, but otherwise no abnormalities and no new masses. He had an EEG which did not show any significant abnormalities and, in particular, no seizure activity. He was started on levetiracetam in case there were seizures contributing to his presentation. He had a lumbar puncture; it was not high volume and approximately 17 cc were withdrawn. Laboratory studies showed no white blood cells, there were 15 right red blood cells, glucose was normal at 52, and total protein was slightly high at 61. He had been prescribed clonazepam approximately 3 weeks prior to the progression of his symptoms. Clonazepam was discontinued. He had gradual improvement during his stay and was participating in therapies and appropriate for inpatient rehabilitation. OTHER LABORATORIES AND STUDIES: During his stay: CBC was overall normal. He had a low platelet count ranging from 119 to 139. Coagulation studies revealed normal PT and INR. Serum chemistry initially showed some dehydration with a BUN of 40 and a creatinine of 1.1. He had a low albumin of 3.2. Subsequently, the basic metabolic profile normalized with resolution of dehydration. Urinalysis was completely negative. PRECAUTIONS: He is a fall risk. ACTIVE COMORBIDITIES: He has no active tier 1, tier 2, or tier 3 comorbidities. PAST MEDICAL HISTORY: 1. Transient global amnesia, with a normal MRI in August of 2017. 2. Mild mitral regurgitation seen on echocardiogram in August of 2017. 3. Hypertension. 4. Glaucoma. 5. Erectile dysfunction. 6. Hard of hearing, more so in the left ear than the right ear. 7. 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 8. Glioblastoma multiforme. PAST SURGICAL HISTORY: He had repair of the aneurysm in his lower spine in 1994 , he had a left cataract excision with lens placement, and he had excision of a left occipital lobe glioblastoma mass. HOME MEDICATIONS: 1. Multivitamin 1 p.o. q. day. 2. Lisinopril/hydrochlorothiazide 20/25 mg 1 p.o. q. day. 3. Clonazepam 0.5 mg p.o. b.i.d. 4. Eyedrops for glaucoma. ADMISSION MEDICATIONS: 1. Latanoprost 0.005% one drop, left eye, h.s. 2. Levetiracetam 500 mg p.o. b.i.d. 3. Quetiapine 12.5 mg p.o. at 0900 and 1600 and 25 mg h.s. 4. Quetiapine 12.5 mg p.o. at 0600 and 1600 p.r.n. 5. Timolol 0.5% one drop, left eye, q. day. ALLERGIES: There are no known drug allergies. 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 He lives at home with his . There are 2 stairs to enter, after which he can live on 1 level. He is a nonsmoker. He has a history of using approximately 1 beer a day. reports that prior to onset of symptoms approximately 3 weeks ago, he regularly walked his dog and he was shoveling snow. FAMILY HISTORY: Noncontributory. REVIEW OF SYSTEMS: He denies pain. He does not have a headache. There is no weakness, numbness, or tingling of the extremities. He has no difficulty swallowing. He only occasionally has the visual release hallucinations, which he developed in short term after his surgery. He has no cough or dyspnea. He has a good appetite. He has gained weight since his prior hospitalization. There is no nausea, vomiting, constipation, or diarrhea. He is continent of bowel and bladder. There is no joint pain or joint swelling. There is no skin rash or skin breakdown. He is in good spirits. Otherwise, a 10-point review of systems is negative. PHYSICAL EXAMINATION: VITALS: Not yet available in the chart. This morning in the hospital, blood pressure was 143/92, heart rate was 92, respiratory rate was 18, oxygen saturation was 98% on room air, temperature was 36.9 degrees centigrade. His weight was 73.6 kg, for a body mass index of 25.4. GENERAL: This was a well-nourished, well-developed man, lying in bed, dressed in a hospital gown, cooperative and in no acute distress. HEENT: Extraocular movements were intact. Left pupil was smaller than the right pupil. Pupils bilaterally were reactive and round. Mucous membranes were moist. Dentition was in good condition. NECK: Supple. HEART: There was a regular rate and rhythm, with no murmurs, rubs, or gallops. LUNGS: Clear to auscultation bilaterally. ABDOMEN: Soft, nontender, nondistended with normoactive bowel sounds and no hepatosplenomegaly. EXTREMITIES: There was no cyanosis, clubbing , or edema. Radial pulses were 2+ bilaterally, and pedal pulses were diminished. NEUROLOGIC: He was alert and oriented x3. Cranial nerves 2 through 12 were grossly intact. There was no focal weakness. Sensation was intact to light touch. Deep tendon reflexes were 2+ bilaterally at the biceps, patella, and Achilles tendons. He had an extension tremor, more so on the right upper extremity than the left, and mgibam-br-aoza testing was slower on the right than on the left. There was mild cogwheel rigidity bilaterally. CURRENT LEVEL OF FUNCTION: Per the preadmission screen: Regarding diet, feeding, and swallowing, he was on a regular diet with thin liquids. Medications were crushed in puree. Grooming was done with minimal assist to contact guard assist, standing with a front-wheeled walker. Dressing required maximal assist for lower body. Toileting required minimal assist. He was continent of bowel and bladder. Bed mobility required minimal assist. He transferred with contact guard assist using a front-wheeled walker. He had decreased balance and endurance. He was able to ambulate 180 feet with a front- wheeled walker, contact guard assist. He climbed and descended 2 stairs with bilateral rails and contact guard assist. He was noted to be hard of hearing and have severe cognitive and communication deficits, with significantly slowed processing, decreased orientation, executive function, memory, and problem solving. On today's exam, there were no significant changes from the preadmission screen. IMPRESSION: This is a 78-year-old man who had surgery in February of 2018 for a left occipital glioblastoma multiforme. He has subsequently had radiation and chemotherapy. He had been doing well at home and had been able to be physically active without significant functional decline until approximately 3 weeks before his hospitalization, when he began to develop confusion and a shuffling gait. At some point along the way, he was started on a benzodiazepine ,. He had continual decline, to the point at which he was brought to the hospital for evaluation. There was no urinary incontinence. Hospital evaluation has not established a definite etiology. There was mild communicating hydrocephalus on MRI, but no other abnormalities. He had a small volume lumbar puncture and may have had improvement after that. Early on there was a dose of lorazepam given and again he seemed to have some improvement after that. EEG did not show any seizure activity; however, he was placed on levetiracetam. He had functional improvement during his stay, and with no findings indicating any particular therapeutic measures, he was appropriate for inpatient rehabilitation. He was seen by Psychiatry for anxiety symptoms and started on quetiapine. His goal is to complete a rehabilitation stay and then return home with his . For safe discharge, he will need to advance to supervision level with self-care and mobility, he will need to demonstrate insight into his cognitive deficits, and he will need to be able to demonstrate safety to carryout ADLs and mobility. He will have therapy with physical therapy, occupational therapy, and speech and language pathology for 60 minutes per day for each discipline, on 5 to 7 days of the week. His expected duration of stay is 12 to 14 days. It is anticipated that upon discharge he will benefit from home health services with nursing, speech and language pathology, social work, occupational therapy, and physical therapy. PLAN: 1. Encephalopathy of unclear etiology with functional decline: PT and OT to optimize mobility and activities of daily living towards the supervision level. 2. Cognitive impairment, with some recovery from his acute/subacute confusional state: Evaluation and treatment per Speech and Language Pathology. 3. Anxiety: He has been treated with quetiapine. Will observe for continued anxiety and will reconsult Psychiatry if necessary. 4. Hypertension: Currently on no antihypertensive medications. Will monitor blood pressure and consider reinstatement of antihypertensives, including lisinopril and hydrochlorothiazide. 5. Glaucoma: Will continue his eye drops. 6. Glioblastoma multiforme: He has completed surgery, chemotherapy, and radiation. He will follow up with Oncology after his discharge. 7. Prophylaxis: His age and presence of a solid tumor increase his risk of DVT. However, he has already ambulated 180 feet and his improved activity will lessen his risk of DVT. Will employ SCDs at night. Will not initiate pharmacologic prophylaxis. 8. Followup: He will see his outpatient neurologist, Dr. Adhikari, 1 to 6 weeks after hospital discharge. He will follow up with his primary oncologist. If his symptoms do not improve, he should consider followup with Neurosurgery for a large volume lumbar puncture to determine whether a ventriculoperitoneal shunt might be helpful. /[id number]/MODL MTDD
[2018-07-21] MEDS: levETIRAcetam 500 MG TAB PO SCH (20:28)
[2018-07-21] MEDS: LATANOPROST 0.005% 2.5 ML OPHT DROPS LEFTEYE SCH (20:28)
[2018-07-22] MEDS: levETIRAcetam 500 MG TAB PO SCH (09:06)
[2018-07-22] MEDS: QUEtiapine FUMARATE 25 MG TAB PO SCH ×3 (09:06→21:45)
[2018-07-22] MEDS: TIMOLOL 0.5% 15 ML OPHT.BTL LEFTEYE SCH (09:09)
--- NOTE | 2018-07-22 11:15 | PDOREHIP ---
Admission [facility] - Admission - 3 Day Assessment Period Admission Date/Day 1: 07/21/18 Day 2: 07/22/18 Day 3: 07/23/18 - Active Diagnoses Comorbidities and Co-existing Conditions at Admission: 39388. None of the Above - Skin Conditions Unhealed Pressure Ulcer (1 or more/Stage 1 or >)-Admission: 0. No # Stage 1 Pressure Ulcers-Admission: 0 # Stage 2 Pressure Ulcers-Admission: 0 # Stage 3 Pressure Ulcers-Admission: 0 # Stage 4 Pressure Ulcers-Admission: 0 # Unstageable Pressure Ulcers (Non-remove Dress)-Admission: 0 # Unstageable Pressure Ulcers (Slough/Eschar)-Admission: 0 # Unstageable Pressure Ulcers (Deep Tissue Injury)-Admission: 0
--- NOTE | 2018-07-22 11:18 | SOAPPROG ---
SOAP Progress Note Assessment/Plan: Assessment: Encephalopathy of unclear etiology with functional decline: PT and OT to optimize mobility and activities of daily living towards the supervision level. Cognitive impairment, with some recovery from his acute/subacute confusional state: Evaluation and treatment per Speech and Language Pathology. Anxiety: He has been treated with quetiapine. Will observe for continued anxiety and will reconsult Psychiatry if necessary. Hypertension: Currently on no antihypertensive medications. Will monitor blood pressure and consider reinstatement of antihypertensives, including lisinopril and hydrochlorothiazide. Glaucoma: Will continue his eye drops. Glioblastoma multiforme: He has completed surgery, chemotherapy, and radiation. He will follow up with Oncology after his discharge. Prophylaxis: His age and presence of a solid tumor increase his risk of DVT. However, he has already ambulated 180 feet and his improved activity will lessen his risk of DVT. Will employ SCDs at night. Will not initiate pharmacologic prophylaxis. Followup: He will see his outpatient neurologist, Dr. Adhikari, 1 to 6 weeks after hospital discharge. He will follow up with his primary oncologist. If his symptoms do not improve, he should consider followup with Neurosurgery for a large volume lumbar puncture to determine whether a ventriculoperitoneal shunt might be helpful. Primary care provider is Dr. Clinton Echeverria. 07/22/18 11:16 Subjective: No complaints. Slept well. Not in pain. No fevers or chills, no cough or dyspnea Objective: Vital Signs Temp Pulse Resp BP Pulse Ox 36.9 C 70 16 136/83 H 98 07/22/18 07:57 07/22/18 07:57 07/22/18 07:57 07/22/18 07:57 07/22/18 07:57 07/21/18 07/22/18 07/23/18 05:59 05:59 05:59 Intake Total 500 Balance 500 Physical Exam - Physical Exam General Appearance: WD/WN, alert, no apparent distress Respiratory: normal breath sounds, No crackles, No rhonchi, No wheezing Cardiac/Chest: regular rate, rhythm, No edema, No diastolic murmur, No systolic murmur Skin: normal color, warm/dry, other (Alopecia posterior scalp) Extremities: No calf tenderness ICD10 Worksheet Patient Problems: Problems Problem Status Onset Brain mass Acute Encephalopathy Acute Hypertension Acute
[2018-07-22] MEDS: ACETAMINOPHEN 325 MG TAB PO PRN ×2 (12:31→16:53)
[2018-07-22] MEDS: LATANOPROST 0.005% 2.5 ML OPHT DROPS LEFTEYE SCH (21:45)
[2018-07-22] MEDS: levETIRAcetam 250 MG TAB PO SCH (21:45)
[2018-07-23] MEDS: levETIRAcetam 250 MG TAB PO SCH ×2 (09:07→20:29)
[2018-07-23] MEDS: QUEtiapine FUMARATE 25 MG TAB PO SCH ×3 (09:08→20:29)
[2018-07-23] MEDS: TIMOLOL 0.5% 15 ML OPHT.BTL LEFTEYE SCH (09:11)
--- NOTE | 2018-07-23 10:19 | SOAPPROG ---
SOAP Progress Note Assessment/Plan: Assessment/Plan: Encephalopathy of unclear etiology with functional decline: PT and OT to optimize mobility and activities of daily living towards the supervision level. Cognitive impairment, with some recovery from his acute/subacute confusional state: Evaluation and treatment per Speech and Language Pathology. Anxiety: He has been treated with quetiapine. Will observe for continued anxiety and will reconsult Psychiatry if necessary. Hypertension: Currently on no antihypertensive medications. - Will restart his lisinopril today given persistent BP's at 140's - Continue to hold HCTZ for now Glaucoma: Will continue his eye drops. Glioblastoma multiforme: He has completed surgery, chemotherapy, and radiation. He will follow up with Oncology after his discharge. Prophylaxis: His age and presence of a solid tumor increase his risk of DVT. However, he has already ambulated 180 feet and his improved activity will lessen his risk of DVT. Will employ SCDs at night. Followup: He will see his outpatient neurologist, Dr. Adhikari, 1 to 6 weeks after hospital discharge. He will follow up with his primary oncologist. If his symptoms do not improve, he should consider followup with Neurosurgery for a large volume lumbar puncture to determine whether a ventriculoperitoneal shunt might be helpful. Primary care provider is Dr. Clinton Echeverria. 07/23/18 10:16 Subjective: Feeling well this morning - the pain he had the other day has seemed to resolved without any other recurrence. Feeling pretty well this morning. No fevers/chills, no new neurologic changes. Objective: Vital Signs Temp Pulse Resp BP Pulse Ox 98.1 F 82 16 142/85 H 97 07/22/18 20:00 07/22/18 20:00 07/22/18 20:00 07/22/18 20:00 07/22/18 20:00 07/22/18 07/23/18 07/24/18 05:59 05:59 05:59 Intake Total 500 550 Balance 500 550 Physical Exam - Physical Exam General Appearance: alert, no apparent distress, other (Sitting at the breakfast table finishing his food. ) EENT: PERRL/EOMI, other (posterior head/left side is shaven. Well healed incisional scar. No evidence of any rash or other changes over the head) Respiratory: lungs clear, normal breath sounds Cardiac/Chest: regular rate, rhythm Abdomen: normal bowel sounds, non-tender, soft Skin: normal color Neuro/Psych: alert, other (Delayed processing, also delayed expressive speech pattern) ICD10 Worksheet Patient Problems: Problems Problem Status Onset Brain mass Acute Encephalopathy Acute Hypertension Acute
[2018-07-23] MEDS: LISINOPRIL 20 MG TAB PO SCH (12:08)
[2018-07-23] MEDS: LATANOPROST 0.005% 2.5 ML OPHT DROPS LEFTEYE SCH (20:29)
[2018-07-24] MEDS: levETIRAcetam 250 MG TAB PO SCH ×2 (08:42→20:02)
[2018-07-24] MEDS: QUEtiapine FUMARATE 25 MG TAB PO SCH ×3 (08:43→20:02)
[2018-07-24] MEDS: LISINOPRIL 20 MG TAB PO SCH (08:43)
[2018-07-24] MEDS: TIMOLOL 0.5% 15 ML OPHT.BTL LEFTEYE SCH (08:44)
--- NOTE | 2018-07-24 10:04 | SOAPPROG ---
SOAP Progress Note Assessment/Plan: Assessment/Plan: Encephalopathy of unclear etiology with functional decline: * PT and OT to optimize mobility and activities of daily living towards the supervision level. Cognitive impairment, with some recovery from his acute/subacute confusional state: * Evaluation and treatment per Speech and Language Pathology. Anxiety: * Continue current dosing of Seroquel * Will observe for continued anxiety and will reconsult Psychiatry if necessary. Hypertension: Currently on no antihypertensive medications. * BP up to 150's 07/24. Restarted on Lisinopril on 07/23. Will monitor for a couple of days before increasing vs adding back HCTZ * Continue to hold HCTZ for now Glaucoma: * Will continue his eye drops. Glioblastoma multiforme: * He has completed surgery, chemotherapy, and radiation. * Should follow up with Oncology after his discharge. Prophylaxis: His age and presence of a solid tumor increase his risk of DVT. However, he has already ambulated 180 feet and his improved activity will lessen his risk of DVT. Will employ SCDs at night. Followup: He will see his outpatient neurologist, Dr. Adhikari, 1 to 6 weeks after hospital discharge. He will follow up with his primary oncologist. If his symptoms do not improve, he should consider followup with Neurosurgery for a large volume lumbar puncture to determine whether a ventriculoperitoneal shunt might be helpful. Primary care provider is Dr. Clinton Echeverria. 07/24/18 10:00 Subjective: Feeling good this morning - No new concerns expressed. slept well last night per patient report. No fevers/chills, no new neurologic changes, Objective: Vital Signs Temp Pulse Resp BP Pulse Ox 97.6 F 82 18 157/97 H 98 07/24/18 08:00 07/24/18 08:00 07/24/18 08:00 07/24/18 08:43 07/24/18 08:00 07/23/18 07/24/18 07/25/18 05:59 05:59 05:59 Intake Total 550 440 120 Output Total 1 Balance 550 439 120 Physical Exam - Physical Exam General Appearance: alert, other (Walking with therapy from his room to the dining area) Respiratory: lungs clear, normal breath sounds Cardiac/Chest: regular rate, rhythm Abdomen: non-tender, soft Skin: normal color, warm/dry Neuro/Psych: alert, normal mood/affect ICD10 Worksheet Patient Problems: Problems Problem Status Onset Brain mass Acute Encephalopathy Acute Hypertension Acute
[2018-07-24] MEDS: ACETAMINOPHEN 325 MG TAB PO PRN (12:08)
[2018-07-24] MEDS: LATANOPROST 0.005% 2.5 ML OPHT DROPS LEFTEYE SCH (20:02)
[2018-07-25] MEDS: LISINOPRIL 20 MG TAB PO SCH (08:11)
[2018-07-25] MEDS: levETIRAcetam 250 MG TAB PO SCH ×3 (08:12→20:30)
[2018-07-25] MEDS: QUEtiapine FUMARATE 25 MG TAB PO SCH ×4 (08:12→20:32)
[2018-07-25] MEDS: TIMOLOL 0.5% 15 ML OPHT.BTL LEFTEYE SCH (08:13)
--- NOTE | 2018-07-25 11:54 | SOAPPROG ---
SOAP Progress Note Assessment/Plan: Assessment: Decline in function over several days since admission to inpatient rehabilitation. Will proceed with high volume lumbar puncture and evaluate for response. If he has good response then he would be candidate for ventriculoperitoneal shunt placement. Discussed with neurosurgeon Dr. Cook, . Dr. Cook will be away this week but will be back at work on 08/01/2018 and would be able to place shunt after his return. Encephalopathy of unclear etiology with functional decline: * Initial functional independence measure is 69 on 07/25/2018. Standby assist for bed mobility. Contact guard assist with a trek pole for transfers. Ambulated greater than 150 ft contact guard assist with a trekking pole. Climbed and descended 12 stairs with bilateral rails, contact guard assist. Accomplished car transfer with contact guard assist. Noted to have decreased initiation and to be perseverative with decreased insight, judgment and memory, per OT. Upper body and lower body dressing required minimal assist to initiate. Grooming hygiene were done with close standby assist. Toileting and toilet transfer with close standby assist to contact guard assist. * Continue PT and OT to optimize mobility and activities of daily living towards the supervision level. Cognitive impairment, with some recovery from his acute/subacute confusional state: * Appears to have had subsequent decline since admission to inpatient rehabilitation. * Has moderate to severe receptive and expressive language deficits and global cognitive deficit. * Continue Speech and Language Pathology. Anxiety: He has been treated with quetiapine. Will observe for continued anxiety and will reconsult Psychiatry if necessary. Hypertension: Blood pressure is trended up and lisinopril was begun, 20 mg q.day, 07/23/2018. Glaucoma: Will continue his eye drops. Glioblastoma multiforme: He has completed surgery, chemotherapy, and radiation. He will follow up with Oncology after his discharge. Prophylaxis: His age and presence of a solid tumor increase his risk of DVT. However, he has already ambulated 180 feet and his improved activity will lessen his risk of DVT. Will employ SCDs at night. Will not initiate pharmacologic prophylaxis. DISPOSITION: Attended staffing, 15 min, 07/25/2018. Discussed with case management, dietitian, nursing, PT, OT, BALLET PROFESSOR. Lives at home with his and hopes to return. Will proceed with large volume lumbar puncture and evaluate for improvement. If no improvement his prognosis to return home is questionable. Followup: He will see his outpatient neurologist, Dr. Adhikari, 1 to 6 weeks after hospital discharge. He will follow up with his primary oncologist. If his symptoms do not improve, he should consider followup with Neurosurgery for a large volume lumbar puncture to determine whether a ventriculoperitoneal shunt might be helpful. Primary care provider is Dr. Clinton Echeverria. 07/25/18 11:55 Subjective: No complaints. Thinks he had a good weekend. Unclear in conversation with him whether he recalls meeting Dr. Staley, weekend coverage physician. Per nursing and therapy staff, he has had a decline in function with increased confusion since he was admitted last week. Objective: Vital Signs Temp Pulse Resp BP Pulse Ox 36.4 C 74 20 120/78 100 07/25/18 08:00 07/25/18 08:00 07/25/18 08:00 07/25/18 08:11 07/25/18 08:00 07/24/18 07/25/18 07/26/18 05:59 05:59 05:59 Intake Total 440 1040 150 Output Total 1 Balance 439 1040 150 - Time Spent With Patient Time Spent With Patient: Greater than 35 min floor time today, including more than 50% of time in coordination of care during staffing, and counseling patient and family. Also had discussion with neurosurgeon Dr. Cook. Physical Exam - Physical Exam General Appearance: WD/WN, alert, no apparent distress Respiratory: normal breath sounds, No crackles, No rhonchi, No wheezing Cardiac/Chest: regular rate, rhythm, No edema, No JVD, No diastolic murmur, No systolic murmur Skin: normal color, warm/dry Neuro/Psych: alert, normal mood/affect, disoriented to place, disoriented to time, No motor weakness ICD10 Worksheet Patient Problems: Problems Problem Status Onset Brain mass Acute Encephalopathy Acute Hypertension Acute
[2018-07-25 12:31] LABS: PLATELET COUNT 166 10^3/uL (150-400)
[2018-07-25 12:45] LABS: INR 0.96 (0.83-1.16); PROTIME(PATIENT) 12.4 SEC (12.0-15.0)
[2018-07-25] MEDS ORDERED: LIDOCAINE 1% 300 MG/30 ML SDV ONE (14:39)
[2018-07-25] MEDS: ACETAMINOPHEN 325 MG TAB PO PRN (17:10)
[2018-07-25] MEDS: LATANOPROST 0.005% 2.5 ML OPHT DROPS LEFTEYE SCH (20:10)
[2018-07-26] MEDS: levETIRAcetam 250 MG TAB PO SCH ×2 (08:19→19:49)
[2018-07-26] MEDS: LISINOPRIL 20 MG TAB PO SCH (08:20)
[2018-07-26] MEDS: QUEtiapine FUMARATE 25 MG TAB PO SCH ×3 (08:20→19:49)
[2018-07-26] MEDS: TIMOLOL 0.5% 15 ML OPHT.BTL LEFTEYE SCH (09:01)
--- NOTE | 2018-07-26 09:58 | SOAPPROG ---
SOAP Progress Note Assessment/Plan: Assessment: Decline in function over several days since admission to inpatient rehabilitation, noted 07/25/2018. Had high volume lumbar puncture 07/26/2018. If he has good response then he would be candidate for ventriculoperitoneal shunt placement. Discussed with neurosurgeon Dr. Cook, 07/25/2018. Dr. Cook will be away this week but will be back at work on 08/01/2018 and would be able to place shunt after his return. Encephalopathy of unclear etiology with functional decline: * Initial functional independence measure is 69 on 07/25/2018. Standby assist for bed mobility. Contact guard assist with a trek pole for transfers. Ambulated greater than 150 ft contact guard assist with a trekking pole. Climbed and descended 12 stairs with bilateral rails, contact guard assist. Accomplished car transfer with contact guard assist. Noted to have decreased initiation and to be perseverative with decreased insight, judgment and memory, per OT. Upper body and lower body dressing required minimal assist to initiate. Grooming hygiene were done with close standby assist. Toileting and toilet transfer with close standby assist to contact guard assist. * Continue PT and OT to optimize mobility and activities of daily living towards the supervision level. Cognitive impairment, with some recovery from his acute/subacute confusional state: * No improvement noted after high volume lumbar puncture, done 07/25/2018. 0LOG 07/26/2018 was 08/25. Remains confused and perseverative. * Has moderate to severe receptive and expressive language deficits and global cognitive deficit. * Continue Speech and Language Pathology. Anxiety: He has been treated with quetiapine. Will observe for continued anxiety and will reconsult Psychiatry if necessary. Hypertension: Blood pressure is trended up and lisinopril was begun, 20 mg q.day, 07/23/2018. Glaucoma: Will continue his eye drops. Glioblastoma multiforme: He has completed surgery, chemotherapy, and radiation. He will follow up with Oncology after his discharge. Prophylaxis: His age and presence of a solid tumor increase his risk of DVT. However, he has already ambulated 180 feet and his improved activity will lessen his risk of DVT. Will employ SCDs at night. Will not initiate pharmacologic prophylaxis. DISPOSITION: Attended staffing, 15 min, 07/25/2018. Discussed with case management, dietitian, nursing, PT, OT, EMERGENCY GENERATOR MECHANIC. Lives at home with his and hopes to return. Monitor for improvement status post large volume lumbar puncture. Goal remains home with assistance 24 hr. Followup: He will see his outpatient neurologist, Dr. Adhikari, 1 to 6 weeks after hospital discharge. He will follow up with his primary oncologist. If his symptoms do not improve, he should consider followup with Neurosurgery for a large volume lumbar puncture to determine whether a ventriculoperitoneal shunt might be helpful. Primary care provider is Dr. Clinton Echeverria. 07/26/18 10:42 Subjective: Had agitation last night after LP and refuse medications. Subsequently slept well. Denies pain, cough, dyspnea, fever, chills. Objective: Vital Signs Temp Pulse Resp BP Pulse Ox 36.3 C 75 18 109/67 97 07/26/18 08:00 07/26/18 08:00 07/26/18 08:00 07/26/18 08:00 07/26/18 08:00 Microbiology 07/25/18 15:30 Gram Stain - Final Cerebral Spinal Fluid Laboratory Results 07/25/18 12:20 07/25/18 07/26/18 07/27/18 05:59 05:59 05:59 Intake Total 1040 500 Balance 1040 500 PT 12.4 SEC (12.0-15.0) 07/25/18 12:20 INR 0.96 (0.83-1.16) 07/25/18 12:20 Physical Exam - Physical Exam General Appearance: WD/WN, alert, no apparent distress Respiratory: normal breath sounds, No crackles, No rhonchi, No wheezing Cardiac/Chest: regular rate, rhythm, No edema, No diastolic murmur, No systolic murmur Neuro/Psych: alert, normal mood/affect, abnormal gait (Improved gait compared to yesterday. Narrow base, moderately slowed pace. Not shuffling.), motor weakness (Required cuing to push up off bed with his hand and several tries to arise from seated to front wheeled walker.) ICD10 Worksheet Patient Problems: Problems Problem Status Onset Brain mass Acute Encephalopathy Acute Hypertension Acute
[2018-07-26] MEDS: LATANOPROST 0.005% 2.5 ML OPHT DROPS LEFTEYE SCH (19:50)
[2018-07-27] MEDS: levETIRAcetam 250 MG TAB PO SCH (08:05)
[2018-07-27] MEDS: QUEtiapine FUMARATE 25 MG TAB PO SCH ×3 (08:06→20:54)
[2018-07-27] MEDS: LISINOPRIL 20 MG TAB PO SCH (08:06)
[2018-07-27] MEDS: TIMOLOL 0.5% 15 ML OPHT.BTL LEFTEYE SCH (08:06)
[2018-07-27] MEDS ORDERED: TUBERCULIN (PPD) 5 TU/0.1 ML SYRINGE ID ONE (10:10)
--- NOTE | 2018-07-27 12:07 | SOAPPROG ---
SOAP Progress Note Assessment/Plan: Assessment: Decline in function over several days since admission to inpatient rehabilitation, noted 07/25/2018. Had high volume lumbar puncture 07/26/2018. If he has good response then he would be candidate for ventriculoperitoneal shunt placement. Discussed with neurosurgeon Dr. Cook, 07/25/2018. Dr. Cook will be away this week but will be back at work on 08/01/2018 and would be able to place shunt after his return. * Minimal or no improvement seen after high volume lumbar puncture. * Discussed with Dr. Reyes, his primary oncologist, 07/27/2018. Most likely he has accelerated atrophy after chemoradiation treatment. No further diagnostics are indicated. Encephalopathy of unclear etiology with functional decline: * Initial functional independence measure is 69 on 07/25/2018. Standby assist for bed mobility. Contact guard assist with a trek pole for transfers. Ambulated greater than 150 ft contact guard assist with a trekking pole. Climbed and descended 12 stairs with bilateral rails, contact guard assist. Accomplished car transfer with contact guard assist. Noted to have decreased initiation and to be perseverative with decreased insight, judgment and memory, per OT. Upper body and lower body dressing required minimal assist to initiate. Grooming hygiene were done with close standby assist. Toileting and toilet transfer with close standby assist to contact guard assist. * Continue PT and OT to optimize mobility and activities of daily living towards the supervision level. Cognitive impairment, with some recovery from his acute/subacute confusional state: * No improvement noted after high volume lumbar puncture, done 07/25/2018. 0LOG 07/26/2018 was 08/25. Remains confused and perseverative. * Has moderate to severe receptive and expressive language deficits and global cognitive deficit. * Continue Speech and Language Pathology. Anxiety: He has been treated with quetiapine. Will observe for continued anxiety and will reconsult Psychiatry if necessary. Question of seizures. He there has been no evidence of seizure activity. There was no evidence of seizure activity on EEG, which was done after initiation of levetiracetam. There has not been cognitive or functional improvement since initiation of levetiracetam. * Discussed with Dr. Acosta, his primary oncologist, 07/27/2018. Will discontinue levetiracetam. Hypertension: Blood pressure is trended up and lisinopril was begun, 20 mg q.day, 07/23/2018. Glaucoma: Will continue his eye drops. Glioblastoma multiforme: He has completed surgery, chemotherapy, and radiation. He will follow up with Oncology after his discharge. Prophylaxis: His age and presence of a solid tumor increase his risk of DVT. However, he has already ambulated 180 feet and his improved activity will lessen his risk of DVT. Will employ SCDs at night. Will not initiate pharmacologic prophylaxis. DISPOSITION: Attended staffing, 15 min, 07/25/2018. Discussed with case management, dietitian, nursing, PT, OT, WASTE MINIMIZATION TECHNICIAN. Lives at home with his and hopes to return. Monitor for improvement status post large volume lumbar puncture. Goal remains home with assistance 24 hr. Followup: He will see his outpatient neurologist, Dr. Adhikari, 1 to 6 weeks after hospital discharge. He will follow up with his primary oncologist. If his symptoms do not improve, he should consider followup with Neurosurgery for a large volume lumbar puncture to determine whether a ventriculoperitoneal shunt might be helpful. Primary care provider is Dr. Clinton Echeverria. 07/27/18 11:59 Subjective: No complaints this morning. Slept well. Denies headache. Staff note says that he has been sleepy after morning ADLs. ADLs were completed more easily and more quickly than the day previous. Objective: Vital Signs Temp Pulse Resp BP Pulse Ox 36.3 C 80 16 130/81 H 94 07/27/18 08:00 07/27/18 08:00 07/27/18 08:00 07/27/18 08:00 07/27/18 08:00 Microbiology 07/25/18 15:30 Gram Stain - Final Cerebral Spinal Fluid Laboratory Results 07/25/18 12:20 07/26/18 07/27/18 07/28/18 05:59 05:59 05:59 Intake Total 500 565 120 Balance 500 565 120 PT 12.4 SEC (12.0-15.0) 07/25/18 12:20 INR 0.96 (0.83-1.16) 07/25/18 12:20 Physical Exam - Physical Exam General Appearance: WD/WN, alert, no apparent distress Respiratory: No respiratory distress, No accessory muscle use Skin: normal color, warm/dry Neuro/Psych: alert, normal mood/affect, abnormal gait (Ambulates with trach pole , contact guard assist per Physical therapy. Has longer and faster steps after cuing. Has near scissoring of legs and loss of balance x1.) ICD10 Worksheet Patient Problems: Problems Problem Status Onset Brain mass Acute Encephalopathy Acute Hypertension Acute
[2018-07-27] MEDS: LATANOPROST 0.005% 2.5 ML OPHT DROPS LEFTEYE SCH (20:54)
[2018-07-28] MEDS: QUEtiapine FUMARATE 25 MG TAB PO SCH ×3 (08:46→19:51)
[2018-07-28] MEDS: LISINOPRIL 20 MG TAB PO SCH (08:47)
[2018-07-28] MEDS: TIMOLOL 0.5% 15 ML OPHT.BTL LEFTEYE SCH (08:49)
--- NOTE | 2018-07-28 11:52 | SOAPPROG ---
SOAP Progress Note Assessment/Plan: Assessment: Decline in function over several days since admission to inpatient rehabilitation, noted 07/25/2018. Had high volume lumbar puncture 07/26/2018. If he has good response then he would be candidate for ventriculoperitoneal shunt placement. Discussed with neurosurgeon Dr. Cook, 07/25/2018. Dr. Cook will be away this week but will be back at work on 08/01/2018 and would be able to place shunt after his return. * Minimal or no improvement seen after high volume lumbar puncture. * Discussed with Dr. Acosta, his primary oncologist, 07/27/2018. Most likely he has accelerated atrophy after chemoradiation treatment. No further diagnostics are indicated. Encephalopathy with functional decline: * Initial functional independence measure is 69 on 07/25/2018. Standby assist for bed mobility. Contact guard assist with a trek pole for transfers. Ambulated greater than 150 ft contact guard assist with a trekking pole. Climbed and descended 12 stairs with bilateral rails, contact guard assist. Accomplished car transfer with contact guard assist. Noted to have decreased initiation and to be perseverative with decreased insight, judgment and memory, per OT. Upper body and lower body dressing required minimal assist to initiate. Grooming hygiene were done with close standby assist. Toileting and toilet transfer with close standby assist to contact guard assist. * Continue PT and OT to optimize mobility and activities of daily living towards the supervision level. Cognitive impairment, with some recovery from his acute/subacute confusional state: * No improvement noted after high volume lumbar puncture, done 07/25/2018. Scored 5/30 on 0LOG 07/26/2018. Remains confused and perseverative. * Has moderate to severe receptive and expressive language deficits and global cognitive deficit. * Continue Speech and Language Pathology. Anxiety: He has been treated with quetiapine. Will observe for continued anxiety and will reconsult Psychiatry if necessary. Question of seizures. He there has been no evidence of seizure activity. There was no evidence of seizure activity on EEG, which was done after initiation of levetiracetam. There has not been cognitive or functional improvement since initiation of levetiracetam. * Discussed with Dr. Acosta, his primary oncologist, 07/27/2018. Will discontinue levetiracetam. Hypertension: Blood pressure is trended up and lisinopril was begun, 20 mg q.day, 07/23/2018. Glaucoma: Will continue his eye drops. Glioblastoma multiforme: He has completed surgery, chemotherapy, and radiation. He will follow up with Oncology after his discharge. Prophylaxis: His age and presence of a solid tumor increase his risk of DVT. However, he has already ambulated 180 feet and his improved activity will lessen his risk of DVT. Will employ SCDs at night. Will not initiate pharmacologic prophylaxis. DISPOSITION: Attended staffing, 15 min, 07/25/2018. Discussed with case management, dietitian, nursing, PT, OT, FLOATING LABOR GANG SUPERVISOR. Conference with Case Management and patient's , with patient's daughter by speaker phone, 07/28/2018. Discharge 07/29/2018 to [facility]. Followup: He will see his outpatient neurologist, Dr. Adhikari, 1 to 6 weeks after hospital discharge. He will follow up with his primary oncologist. If his symptoms do not improve, he should consider followup with Neurosurgery for a large volume lumbar puncture to determine whether a ventriculoperitoneal shunt might be helpful. Primary care provider is Dr. Clinton Echeverria. 07/28/18 11:49 Subjective: No complaints. Slept well. No fevers or chills, no cough or dyspnea. Not in pain. Objective: Vital Signs Temp Pulse Resp BP Pulse Ox 36.6 C 68 16 122/73 H 95 07/28/18 08:00 07/28/18 08:00 07/28/18 08:00 07/28/18 08:00 07/28/18 08:00 Microbiology 07/25/18 15:30 Gram Stain - Final Cerebral Spinal Fluid Laboratory Results 07/25/18 12:20 07/27/18 07/28/18 07/29/18 05:59 05:59 05:59 Intake Total 565 440 250 Balance 565 440 250 PT 12.4 SEC (12.0-15.0) 07/25/18 12:20 INR 0.96 (0.83-1.16) 07/25/18 12:20 - Time Spent With Patient Time Spent With Patient: Greater than 35 min floor time today, including more than 50% of time in coordination of care and counseling during conference with case management and family. Physical Exam - Physical Exam General Appearance: WD/WN, alert, no apparent distress Respiratory: No respiratory distress, No accessory muscle use Skin: normal color, warm/dry Neuro/Psych: alert, normal mood/affect, abnormal gait (With trekking pole and contact guard per Physical therapy.) ICD10 Worksheet Patient Problems: Problems Problem Status Onset Brain mass Acute Encephalopathy Acute Hypertension Acute
--- NOTE | 2018-07-28 11:57 | PDOREHIP ---
Admission [facility] - Admission - 3 Day Assessment Period Admission Date/Day 1: 07/21/18 Day 2: 07/22/18 Day 3: 07/23/18 - Active Diagnoses Comorbidities and Co-existing Conditions at Admission: 38423. None of the Above Discharge [facility] - Discharge - 3 Day Assessment Period 2 Days Prior to Anticipated Discharge Date: 07/27/18 1 Day Prior to Anticipated Discharge Date: 07/28/18 Anticipated Discharge Date: 07/29/18 - Discharge Skin Conditions Unhealed Pressure Ulcer (1 or more/Stage 1 or >)-Discharge: 0. No # Stage 1 Pressure Ulcers-Discharge: 0 # Stage 2 Pressure Ulcers-Discharge: 0 # of These Stage 2 Pressure Ulcers Present on Admission: 0 # Stage 3 Pressure Ulcers-Discharge: 0 # of These Stage 3 Pressure Ulcers Present on Admission: 0 # Stage 4 Pressure Ulcers-Discharge: 0 # of These Stage 4 Pressure Ulcers Present on Admission: 0 # Unstageable Pressure Ulcers (Non-remove Dress)-Discharge: 0 # These Unstageable Pressure Ulcers (NRD)-Present on Admit: 0 # Unstageable Pressure Ulcers (Slough/Eschar)-Discharge: 0 # These Unstageable Pressure Ulcers(Slough) Present on Admit: 0 # Unstageable Pressure Ulcers (Deep Tissue Injury)-Discharge: 0 # These Unstageable Pressure Ulcers (DTI) Present on Admit: 0
--- NOTE | 2018-07-28 12:41 | GDS ---
[f rep st] DISCHARGE SUMMARY ADMITTING DIAGNOSIS: Encephalopathy following brain radiation. DISCHARGE DIAGNOSIS: Encephalopathy following brain radiation. COMPLICATIONS: There were none. PROCEDURES: He had a high volume lumbar puncture. CONSULTATIONS: There were none. HISTORY AND HOSPITAL COURSE: This patient came to [facility] inpatient rehabilitation from [facility]. He had presented there on 07/15/2018 following approximately 3 weeks of cognitive and functional decline. He had an extensive evaluation in the hospital including lumbar puncture for CSF studies and brain imaging. Imaging showed a possibility of mild normal-pressure hydrocephalus, though it was questionable whether this would be amenable to treatment or whether it was causing his symptoms. He was presumptively started on levetiracetam on the suspicion that there might be subclinical seizures as he seemed to have some improvement after a dose of lorazepam early in his hospital stay. A subsequent EEG, however, showed no epileptiform activity. He was otherwise medically stable and appropriate for rehabilitation. He had minimal progress in rehabilitation. He remained encephalopathic with significant cognitive impairment. As he had no improvement, he was sent for a high volume lumbar puncture. 30 cc of cerebrospinal fluid were removed. He had no improvement in cognition or mobility subsequently. It was notable that regarding the possibility of normal-pressure hydrocephalus, that he did not show the classic magnetic gait and there was no urinary incontinence. Regarding his functional status, he required standby assist for bed mobility. He would transfer using a trekking pole with contact guard. He ambulated greater than 150 feet with contact guard and a trekking pole. He climbed and descended 12 stairs with bilateral rails, requiring contact guard assist. He was able to do a car transfer with contact guard assist. He had decreased initiation, and he was perseverative and with decreased insight, judgment, and memory. Upper and lower body dressing were accomplished with minimal assist to initiate. Grooming and hygiene were done with close standby assist. Toileting and toilet transfers were done with close standby to contact guard assist. He had bed and chair alarms as he would not remember to call for assistance when he needed to get up. Levetiracetam was discontinued on 07/27/2018. There was no change in his functional status noted and no evidence of seizures. He had elevated blood pressures. Blood pressure medications had been discontinued during his hospital stay. With blood pressures trending up, he was begun on lisinopril 20 mg per day, and subsequently, he had adequate blood pressure control. Quetiapine was continued for diagnosis of anxiety. This had been begun per Psychiatry in consultation in the hospital. Regarding history of glioblastoma multiforme and excision in February 2018, he had no signs or symptoms of recurrent mass lesion and there was nothing seen on brain imaging during his hospitalization. DISPOSITION: He is discharging to the [facility] memory care unit in [place], [place]. CONDITION: Good. ACTIVITY: Ad steph but he requires supervision for safety with mobility and activities of daily living. DIET: Regular. CODE STATUS: Do Not Resuscitate. ALLERGIES: There are no known drug allergies. MEDICATIONS UPON DISCHARGE: 1. Acetaminophen 650 mg p.o. q.4 hours p.r.n. 2. Latanoprost 0.005% one drop, left eye, at h.s. 3. Lisinopril 20 mg p.o. daily. 4. Quetiapine 25 mg at h.s. and 12.5 mg at 0900 and 1600. 5. Quetiapine 12.5 mg at 0900 and 1600 p.r.n. anxiety. 6. Timolol 0.5% one drop, left eye, daily. ISSUES TO BE ADDRESSED FOLLOWUP: 1. Mobility, cognition, and activities of daily living. He can continue therapies at [facility] and can follow up with his primary care provider. 2. Glioblastoma multiform. He will follow up with his primary oncologist. 3. History of craniotomy. He may follow up with neurosurgeon, Dr. Demetrio Cook , but it is unlikely that there are any more procedural treatments that he will need. /[id number]/MODL MTDD
[2018-07-28] MEDS: LATANOPROST 0.005% 2.5 ML OPHT DROPS LEFTEYE SCH (19:51)
--- NOTE | 2018-07-28 19:54 | WOCRNPDOC ---
WOCRN Advanced Assessment Note - Skin Integrity Problem, Advanced Assess left ruffin Dressing Type: Allevyn Life Exudate Amount: None Integumentary Issue Intervention: Visualized Under Dressing Wound Bed Constitution: Mixed Loose & Adhered Slough/Eschar (100% ) Wound Edges: Attached Site Measurement - Head-to-Toe Length X Width X Depth (cm): [id number] Skin Integrity Problem Comment: Skin cancer removal site from at least [address] Fishman. Will initiate moist wound healing. Wound care will follow. Sonya SMITH in room for care. Thank you for your consultation.
[2018-07-29 08:01] VITALS: BP 128/86
[2018-07-29] MEDS: QUEtiapine FUMARATE 25 MG TAB PO SCH (08:01)
[2018-07-29] MEDS: LISINOPRIL 20 MG TAB PO SCH (08:02)
[2018-07-29] MEDS: TIMOLOL 0.5% 15 ML OPHT.BTL LEFTEYE SCH (08:03)
== END 2018-07-29 11:15 | DRG 72 ==
LOC: F3E 15:01
PROVIDERS: ADMIT Internal Medicine Hospice and Palliative Medicine; ATTEND Internal Medicine Hospice and Palliative Medicine
PROC: F07M3ZZ Motor Function Treatment of Musculoskeletal System - Whole Body (ICD-10-PCS; principal; 2018-07-21)
PROC: F0636ZZ Communicative/Cognitive Integration Skills Treatment of Neurological System - Whole Body (ICD-10-PCS; principal; 2018-07-21)
PROC: F08Z7ZZ Vocational Activities and Functional Community or Work Reintegration Skills Treatment (ICD-10-PCS; principal; 2018-07-21)
PROC: 009U3ZZ Drainage of Spinal Canal, Percutaneous Approach (ICD-10-PCS; 2018-07-25)
DX: G93.49 Other encephalopathy (principal); R41.841 Cognitive communication deficit; R41.844 Frontal lobe and executive function deficit; R41.89 Other symptoms and signs involving cognitive functions and awareness; Z85.841 Personal history of malignant neoplasm of brain; Z92.21 Personal history of antineoplastic chemotherapy; Z92.3 Personal history of irradiation; I10 Essential (primary) hypertension; F41.9 Anxiety disorder, unspecified; H40.9 Unspecified glaucoma; H91.93 Unspecified hearing loss, bilateral
CPT/HCPCS: 92507-GN; 92523-GN; 92526-GN; 92610-GN; 97112-GP; 97116-GP; 97162-GP; 97166-GO; 97530-GO; 97530-GP; 97535-GO; G0515-GO

== ENCOUNTER 2018-08-03 22:22 | Emergency (ER) | payer BC, OTHER ==
[2018-08-03 22:48] LABS: PLATELET COUNT 201 10^3/uL (150-400)
--- NOTE | 2018-08-03 22:54 | EDPHY ---
H & P Stated Complaint: ams Time Seen by Provider: 08/03/18 22:28 HPI/ROS: HPI The patient presents with altered mental status, with increased agitation noticed tonight at his living facility, which is [place] in a memory care locked unit. He apparently was trying to escape from the unit and did not recognize family members. He is currently prescribed Seroquel, though has missed 2 doses over the last 4 days of 25 mg at night because he has refused it. He was admitted to the hospital last month for a cognitive decline. He has a history of a glioblastoma status post excision of right occipital mass in February of 2018, he received radiation for this in May of this year and then experienced a cognitive decline. He was admitted to the hospital for this and had an extensive workup. He was thought to have mild normal pressure hydrocephalus and underwent lumbar puncture. He did not have eeg significant for subclinical seizures REVIEW OF SYSTEMS 10 systems were reviewed and negative with the exception of the elements mentioned in the history of present illness. PMHx: Glioblastoma status post excision in February of 2018, followed by radiation, then developed encephalopathy of unclear origin, possibly normal pressure hydrocephalus Soc Hx: Recently was discharged from rehab to [facility] where he is in a memory care unit, he is here with multiple family members PHYSICAL General Appearance: Alert, no distress Eyes: Pupils equal and round no pallor or injection ENT, Mouth: Mucous membranes moist Respiratory: There are no retractions, lungs are clear to auscultation Cardiovascular: Regular rate and rhythm Gastrointestinal: Abdomen is soft and non-tender, no masses, bowel sounds normal Neurological: A&O, moves all extremities Skin: Warm and dry, no rashes Musculoskeletal: Neck is supple non tender Extremities: symmetrical, full range of motion Psychiatric: Patient is oriented X 3, there is no agitation Source: Patient, Family Exam Limitations: Clinical condition - Personal History Current Tetanus Diphtheria and Acellular Pertussis (TDAP): Yes - Medical/Surgical History Hx Asthma: No Hx Chronic Respiratory Disease: No Hx Diabetes: No Hx Cardiac Disease: No Hx Renal Disease: No Hx Cirrhosis: No Hx Alcoholism: No Hx HIV/AIDS: No Hx Splenectomy or Spleen Trauma: No Other PMH: HTN, bleeding ulcers , spinal aneurysm , TIA early 2017, tinnitus. 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, glaucoma L, - Social History Smoking Status: Never smoked Constitutional: Initial Vital Signs Temperature (C) 36.3 C 08/03/18 22:32 Heart Rate 86 08/03/18 22:32 Respiratory Rate 16 08/03/18 22:32 Blood Pressure 140/105 H 08/03/18 22:32 O2 Sat (%) 98 08/03/18 22:32 O2 Delivery Mode Room Air Allergies/Adverse Reactions: No Known Allergies Allergy (Verified 09/13/17 10:39) Home Medications: Medication Instructions Recorded Acetaminophen [Tylenol 325mg (*)] 650 mg PO Q4HRS PRN tab 07/28/18 Latanoprost 0.005% [Xalatan 0.005% 1 drop LEFTEYE HS #1 opht.btl 07/28/18 (*)] Lisinopril [Zestril 20 mg (*)] 20 mg PO DAILY #30 tab 07/28/18 QUEtiapine FUMARATE [Seroquel 25 12.5 mg PO BID@0900,1600 #15 tab 07/28/18 mg (*)] QUEtiapine FUMARATE [Seroquel 25 25 mg PO HS #30 tab 07/28/18 mg (*)] Timolol 0.5% [TIMOPTIC 0.5% (*)] 1 drops LEFTEYE DAILY #1 opht.btl 07/28/18 Medical Decision Making - Diagnostics Imaging Results: CT head demonstrates no evidence of acute intracranial process, interpreted by direct Radiology. Differential Diagnosis: 78-year-old male with history of glioblastoma status post excision and XRT, now with encephalopathy of unclear origin, possibly mild normal pressure hydrocephalus presents with agitation and abnormal behavior with confusion today at his new Assisted Living. He has refused 2 doses of Seroquel in the last 4 days. Otherwise, he has had no changes in medications. Here in the emergency department he had basic laboratory testing which was unremarkable. CT scan of his head was normal. He was observed for about 3 hr and was calm and cooperative throughout his stay without any other abnormal behavior or worsening confusion. Symptoms could be related possibly to normal pressure hydrocephalus which he may have. I would also consider missing his doses of Seroquel as causing this episode. Given that he is at a new facility and this event occurred at night, sundowning is also a consideration. I am not worried about ischemic stroke in his case. Family feels comfortable with him going back to [place] and we have contacted them and they will accept him back. - Data Points Laboratory Results: Laboratory Results 08/03/18 22:30 08/03/18 22:30 08/03/18 08/03/18 22:30 22:30 WBC 4.66 10^3/uL 10^3/uL (3.80-9.50) RBC 4.16 10^6/uL L 10^6/uL (4.40-6.38) Hgb 13.6 g/dL L g/dL (13.7-17.5) Hct 40.0 % % (40.0-51.0) MCV 96.2 fL fL (81.5-99.8) MCH 32.7 pg pg (27.9-34.1) MCHC 34.0 g/dL g/dL (32.4-36.7) RDW 14.2 % % (11.5-15.2) Plt Count 201 10^3/uL 10^3/uL (150-400) MPV 8.9 fL fL (8.7-11.7) Neut % (Auto) 64.8 % % (39.3-74.2) Lymph % (Auto) 18.7 % % (15.0-45.0) [place] % (Auto) 13.9 % H % (4.5-13.0) Eos % (Auto) 1.1 % % (0.6-7.6) Baso % (Auto) 0.6 % % (0.3-1.7) Nucleat RBC Rel Count 0.0 % % (0.0-0.2) Absolute Neuts (auto) 3.02 10^3/uL 10^3/uL (1.70-6.50) Absolute Lymphs (auto) 0.87 10^3/uL L 10^3/uL (1.00-3.00) Absolute Monos (auto) 0.65 10^3/uL 10^3/uL (0.30-0.80) Absolute Eos (auto) 0.05 10^3/uL 10^3/uL (0.03-0.40) Absolute Basos (auto) 0.03 10^3/uL 10^3/uL (0.02-0.10) Absolute Nucleated RBC 0.00 10^3/uL 10^3/uL (0-0.01) Immature Gran % 0.9 % % (0.0-1.1) Immature Gran # 0.04 10^3/uL 10^3/uL (0.00-0.10) Sodium 139 mEq/L mEq/L (135-145) Potassium 4.0 mEq/L mEq/L (3.5-5.2) Chloride 106 mEq/L mEq/L (97-110) Carbon Dioxide 24 mEq/l mEq/l (22-31) Anion Gap 9 mEq/L mEq/L (6-14) BUN 16 mg/dL mg/dL (7-23) Creatinine 1.1 mg/dL mg/dL (0.7-1.3) Estimated GFR > 60 Glucose 87 mg/dL mg/dL (70-100) Calcium 9.5 mg/dL mg/dL (8.5-10.4) Total Bilirubin 1.0 mg/dL mg/dL (0.1-1.4) AST 24 IU/L IU/L (17-59) ALT 31 IU/L IU/L (21-72) Alkaline Phosphatase 52 IU/L IU/L (38-126) Total Protein 6.0 g/dL L g/dL (6.3-8.2) Albumin 3.9 g/dL g/dL (3.5-5.0) Departure - Departure Disposition: Home, Routine, Self-Care Clinical Impression: Encephalopathy Condition: Good Instructions: Altered Mental Status (ED) Additional Instructions: Please return to the emergency department if he is worse in any way. I do think he would benefit from taking his doses of Seroquel as prescribed. Please contact the primary care physician tomorrow. Referrals: Clinton Adhikari MD [Primary Care Provider] - As per Instructions
[2018-08-04 02:01] VITALS: BP 129/83
== END 2018-08-04 02:01 | disposition home or self-care (01) ==
LOC: EDUNIT#
DX: G93.40 Encephalopathy, unspecified (principal); I10 Essential (primary) hypertension; H40.9 Unspecified glaucoma; Z85.841 Personal history of malignant neoplasm of brain; Z92.3 Personal history of irradiation; Z86.73 Personal history of transient ischemic attack (TIA), and cerebral infarction without residual deficits